=== PATIENT | female | born 1935 | race African-American/Black ===

== ENCOUNTER 2019-07-28 08:05 | Inpatient (IN) | payer MEDICARE ==
[~2019-07-28] VITALS: Ht 160 cm; Wt 56.7 kg
--- NOTE | 2019-07-28 08:25 | ED Abdominal Pain ---
General Stated Complaint: NAUSEA; ABD PAIN Source of Information: Patient Exam Limitations: No Limitations History of Present Illness Date Seen by Provider: Jul 28, 2019 Time Seen by Provider: 08:12 Initial Comments The patient is a pleasant 84-year-old female who presents for evaluation of lower abdominal discomfort which has been worsening over the last week. She reports some intermittent nausea and a small amount of loose stools but denies vomiting, rectal bleeding, back pain, chest pain or shortness of breath, fevers or chills, urinary complaints, dizziness or syncope. She is alert and oriented 4, calm, and appears to be in no distress at this time. She reports a history of a total abdominal hysterectomy with bilateral salpingo-oophorectomy and denies any other abdominal surgeries. She is a history of hypertension and hyperlipidemia. Timing/Duration: 1 Week Severity/Quality: Moderate, Dull Location: Periumbilical, Suprapubic Radiation: No Radiation Activities at Onset: None Associated Symptoms: Nausea/Vomiting (nausea only) Allergies and Home Medications Allergies Coded Allergies: No Known Drug Allergies (Unverified , 07/28/19) Patient Home Medication List Home Medication List Reviewed: Yes Review of Systems Review of Systems Constitutional: no symptoms reported EENTM: No Symptoms Reported Respiratory: No Symptoms Reported Cardiovascular: No Symptoms Reported Gastrointestinal: Abdominal Pain, Diarrhea ("a few loose stools"), Nausea Genitourinary: No Symptoms Reported Musculoskeletal: no symptoms reported Skin: no symptoms reported Psychiatric/Neurological: No Symptoms Reported Endocrine: No Symptoms Reported Hematologic/Lymphatic: No Symptoms Reported All Other Systems Reviewed Negative Unless Noted: Yes Past Humylaf-Jlzirm-Wqnufj Hx Past Med/Social Hx: Reviewed Nursing Past Med/Soc Hx Patient Social History Recent Foreign Travel: No Physical Exam Vital Signs Vital Signs - First Documented 07/28/19 08:10 Temp 36.6 Pulse 78 Resp 16 B/P (MAP) 158/85 (109) Pulse Ox 100 O2 Delivery Room Air Capillary Refill : Height/Weight/BMI Height: '" Weight: lbs. oz. kg; BMI Method: General Appearance: WD/WN, no apparent distress HEENT: PERRL/EOMI, normal ENT inspection Neck: non-tender, full range of motion, supple Respiratory: chest non-tender, lungs clear, normal breath sounds, no respiratory distress Cardiovascular: regular rate, rhythm, no edema, no JVD Gastrointestinal: normal bowel sounds, soft, no organomegaly, no pulsatile mass, tenderness (mild ttp over suprapubic region, no guarding, soft, no distension) Extremities: normal range of motion, normal inspection, no pedal edema, normal capillary refill Back: normal inspection, no CVA tenderness Neurologic/Psychiatric: 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 nml as tested, alert, normal mood/affect, oriented x 3 Skin: normal color, warm/dry Progress/Results/Core Measures Results/Orders Lab Results Laboratory Tests Test 07/28/19 08:22 07/28/19 08:51 Range/Units White Blood Count 4.7 4.3-11.0 10^3/uL Red Blood Count 3.89 L 4.35-5.85 10^6/uL Hemoglobin 10.3 L 11.5-16.0 G/DL Hematocrit 32 L 35-52 % Mean Corpuscular Volume 83 80-99 FL Mean Corpuscular Hemoglobin 26 25-34 PG Mean Corpuscular Hemoglobin Concent 32 32-36 G/DL Red Cell Distribution Width 13.3 10.0-14.5 % Platelet Count 255 130-400 10^3/uL Mean Platelet Volume 9.6 7.4-10.4 FL Neutrophils (%) (Auto) 45 42-75 % Lymphocytes (%) (Auto) 39 12-44 % Monocytes (%) (Auto) 11 0-12 % Eosinophils (%) (Auto) 4 0-10 % Basophils (%) (Auto) 1 0-10 % Neutrophils # (Auto) 2.1 1.8-7.8 X 10^3 Lymphocytes # (Auto) 1.8 1.0-4.0 X 10^3 Monocytes # (Auto) 0.5 0.0-1.0 X 10^3 Eosinophils # (Auto) 0.2 0.0-0.3 10^3/uL Basophils # (Auto) 0.1 0.0-0.1 10^3/uL Sodium Level 142 135-145 MMOL/L Potassium Level 3.6 3.6-5.0 MMOL/L Chloride Level 105 98-107 MMOL/L Carbon Dioxide Level 26 21-32 MMOL/L Anion Gap 11 5-14 MMOL/L Blood Urea Nitrogen 8 7-18 MG/DL Creatinine 0.59 L 0.60-1.30 MG/DL Estimat Glomerular Filtration Rate > 60 BUN/Creatinine Ratio 14 Glucose Level 121 H 70-105 MG/DL Calcium Level 9.0 8.5-10.1 MG/DL Corrected Calcium 9.2 8.5-10.1 MG/DL Total Bilirubin 0.2 0.1-1.0 MG/DL Aspartate Amino Transf (AST/SGOT) 10 5-34 U/L Alanine Aminotransferase (ALT/SGPT) < 5 0-55 U/L Alkaline Phosphatase 69 40-136 U/L Total Protein 6.2 L 6.4-8.2 GM/DL Albumin 3.7 3.2-4.5 GM/DL Amylase Level 81 25-125 U/L Lipase 22 8-78 U/L Urine Color YELLOW Urine Clarity CLEAR Urine pH 7.0 5-9 Urine Specific Central 1.020 1.016-1.022 Urine Protein NEGATIVE NEGATIVE Urine Glucose (UA) NEGATIVE NEGATIVE Urine Ketones NEGATIVE NEGATIVE Urine Nitrite NEGATIVE NEGATIVE Urine Bilirubin NEGATIVE NEGATIVE Urine Urobilinogen 0.2 < = 1.0 MG/DL Urine Leukocyte Esterase TRACE NEGATIVE Urine RBC (Auto) NEGATIVE NEGATIVE Urine RBC NONE /HPF Urine WBC 2-5 /HPF Urine Squamous Epithelial Cells >50 H /HPF Urine Crystals PRESENT H /LPF Urine Calcium Oxalate Crystals FEW H /LPF Urine Bacteria MODERATE H /HPF Urine Casts NONE /LPF Urine Mucus NEGATIVE /LPF Urine Culture Indicated NO My Orders Orders - MARIA ALEJANDRA DUNLAP DO Comprehensive Metabolic Panel (07/28/19 08:17) Lipase (07/28/19 08:17) Amylase (07/28/19 08:17) Ua Culture If Indicated (07/28/19 08:17) Ed Iv/Invasive Line Start (07/28/19 08:17) Cbc With Automated Diff (07/28/19 08:17) Ct Abdomen/Pelvis W (07/28/19 08:17) Iohexol Injection (Omnipaque 350 Mg/Ml 1 (07/28/19 09:15) Received Contrast (Hold Metformin- Contr (07/28/19 09:15) Sodium Chloride Flush (Catheter Flush Sy (07/28/19 09:15) Ns (Ivpb) (Sodium Chloride 0.9% Ivpb Bag (07/28/19 09:15) Ns Iv 1000 Ml (Sodium Chloride 0.9%) (07/28/19 09:45) Morphine Injection (Morphine Injection (07/28/19 09:45) Metronidazole 500mg/100ml Ivpb (Flagyl 5 (07/28/19 10:00) Ciprofloxacin Iv 400mg/200ml (Cipro Iv S (07/28/19 10:00) Medications Given in ED Current Medications Medications Dose Ordered Sig/Isaiah Route Start Time Stop Time Status Last Admin Dose Admin Iohexol 100 ml ONCE ONCE IV 07/28/19 09:15 07/28/19 09:16 UNV 07/28/19 09:14 100 ML Sodium Chloride 10 ml NEEDED PRN IV 07/28/19 09:15 UNV 07/28/19 09:14 10 ML Sodium Chloride 100 ml ONCE ONCE IV 07/28/19 09:15 07/28/19 09:16 UNV 07/28/19 09:14 80 ML Vital Signs/I&O 07/28/19 08:10 Temp 36.6 Pulse 78 Resp 16 B/P (MAP) 158/85 (109) Pulse Ox 100 O2 Delivery Room Air Progress Progress Note : Progress Note @0950 - Discussed the lab and imaging findings with the patient including the possibility of an abscess as this could not be fully ruled out. She has been given antibiotics for the colitis. She is agreeable to admission. Dr. Gandara accepts the admission and requests a general surgery consultation. Dr. Martinez accepts the general surgery consultation and has no further orders at this time. Diagnostic Imaging Diagonstic Imaging: CT Comments [facility] [place], [place] NAME: TIRSO SAMSON [facility] REC#: [id number] PT STATUS: REG ER : 1935 PHYSICIAN: MARIA ALEJANDRA DUNLAP DO ADMIT DATE: 07/28/19/ER FS Signed Date of Exam:07/28/19 CT ABDOMEN/PELVIS W PROCEDURE: CT abdomen and pelvis with contrast. TECHNIQUE: Multiple contiguous axial images were obtained through the abdomen and pelvis after administration of intravenous contrast. Auto Exposure Controls were utilized during the CT exam to meet ALARA standards for radiation dose reduction. INDICATION: Abdominal pain and nausea. COMPARISON: None available. FINDINGS: The visualized lung bases are clear. Multiple hepatic cysts and additional tiny hepatic hypodensities which are too small to completely characterize. The spleen is unremarkable. The adrenal glands are unremarkable. Bilateral renal cysts. Otherwise, the kidneys are unremarkable. Scattered vascular calcifications without aneurysmal dilatation of the abdominal aorta. The urinary bladder is predominately decompressed, therefore not well evaluated. The uterus is not visualized, surgically absent. No abnormal adnexal mass lesion. Mural thickening is identified associated with the majority of the ascending colon with additional hyperenhancement of the hepatic flexure. This is associated with adjacent fat stranding. 2.8 x 1.3 cm hypodense fluid collection is identified abutting the colon at this location, which is also abutting the inferior aspect of the right hepatic lobe. No bowel obstruction or pneumatosis. Lymph nodes about the ascending colon appears slightly increased in number though are not definitively pathologically enlarged. The pancreas is unremarkable. No significant free air or free fluid. Scattered osseous degenerative changes without acute osseous abnormality. IMPRESSION: Significant mural thickening with adjacent fat stranding associated with the ascending colon and hepatic flexure. Findings are favored related to underlying colitis. Neoplasm at this location is not excluded. Recommend correlation with endoscopy at the resolution of this acute event if no recent endoscopy has been performed. Small focal fluid collection immediately adjacent to the hepatic flexure of the colon and liver. As this is immediately adjacent to the abnormal-appearing colon, developing abscess could be considered. Exophytic hepatic cyst or seroma related to prior cholecystectomy would be additional considerations. Hepatic and renal cysts. Lymph nodes adjacent to the ascending colon appear increased in number, which is nonspecific. This may be reactive though infiltrative process cannot be excluded. Dictated by: Dictated on workstation # [id number] Dict: 07/28/19917 Trans: 07/28/19935 [facility] [id number] Interpreted by: NISREEN CRAWFORD MD Electronically signed by: NISREEN CRAWFORD MD 07/28/1936 Departure Communication (Admissions) Time/Spoke to Admitting Phy: 09:50 Dr. Gandara excepts the Med/Surg admission at [facility] at this time. Impression Primary Impression: Colitis Additional Impressions: Abnormal CT of the abdomen Abdominal pain Disposition: ADMITTED INPATIENT Condition: Stable Admissions Decision to Admit Reason: Admit from ER (General) Decision to Admit/Date: Jul 28, 2019 Time/Decision to Admit Time: 09:50 Departure-Patient Inst. Referrals: CAROL AVINA MD (PCP/Family) Primary Care Physician MARIA ALEJANDRA DUNLAP DO Jul 28, 2019 08:25
[2019-07-28 08:34] LABS: WHITE BLOOD COUNT 4.7 10^3/uL (4.3-11.0)
[2019-07-28 08:35] LABS: BASOPHILS # (AUTO) 0.1 10^3/uL (0.0-0.1); BASOPHILS % (AUTO) 1 % (0-10); EOSINOPHILS # (AUTO) 0.2 10^3/uL (0.0-0.3); EOSINOPHILS % (AUTO) 4 % (0-10); HEMATOCRIT 32 % (35-52); HEMOGLOBIN 10.3 G/DL (11.5-16.0); LYMPHOCYTES # (AUTO) 1.8 X 10^3 (1.0-4.0); LYMPHOCYTES % (AUTO) 39 % (12-44); MEAN CORPUSCULAR HEMOGLOBIN 26 PG (25-34); MEAN CORPUSCULAR HGB CONC 32 G/DL (32-36); MEAN CORPUSCULAR VOLUME 83 FL (80-99); MEAN PLATELET VOLUME 9.6 FL (7.4-10.4); MONOCYTES # (AUTO) 0.5 X 10^3 (0.0-1.0); MONOCYTES % (AUTO) 11 % (0-12); NEUTROPHILS # (AUTO) 2.1 X 10^3 (1.8-7.8); NEUTROPHILS % (AUTO) 45 % (42-75); PLATELET COUNT 255 10^3/uL (130-400); RED CELL DISTRIBUTION WIDTH 13.3 % (10.0-14.5)
[2019-07-28 08:53] LABS: SODIUM 142 MMOL/L (135-145)
[2019-07-28 08:54] LABS: ALANINE AMINOTRANSFERASE < 5 U/L (0-55); ALBUMIN 3.7 GM/DL (3.2-4.5); ALKALINE PHOSPHATASE 69 U/L (40-136); AMYLASE 81 U/L (25-125); BILIRUBIN,TOTAL 0.2 MG/DL (0.1-1.0); BUN/CREATININE RATIO 14; CARBON DIOXIDE 26 MMOL/L (21-32); CHLORIDE 105 MMOL/L (98-107); CREATININE SERUM 0.59 MG/DL (0.60-1.30); GFR ESTIMATED > 60; GLUCOSE 121 MG/DL (70-105); LIPASE 22 U/L (8-78); POTASSIUM 3.6 MMOL/L (3.6-5.0); TOTAL PROTEIN 6.2 GM/DL (6.4-8.2)
[2019-07-28 09:12] LABS: BACTERIA,URINE MODERATE /HPF; BILIRUBIN,URINE NEGATIVE (NEGATIVE); CALCIUM OXALATE CRYSTALS,UR FEW /LPF; CLARITY,URINE CLEAR; COLOR,URINE YELLOW; GLUCOSE, URINE (UA) NEGATIVE (NEGATIVE); KETONES,URINE NEGATIVE (NEGATIVE); LEUKOCYTE ESTERASE ,URINE TRACE (NEGATIVE); NITRITE,URINE NEGATIVE (NEGATIVE); PROTEIN,URINE NEGATIVE (NEGATIVE); SQUAMOUS EPITHELIAL CELL,UR >50 /HPF
[2019-07-28] MEDS ORDERED: IOHEXOL 350 MG/ML 100 ML (OMNIPAQUE 350) VIAL IV ONE (09:15)
[2019-07-28] MEDS ORDERED: HOLD METFORMIN - RECEIVED CONTRAST 20 ML VIAL IV SCH (09:15)
[2019-07-28] MEDS ORDERED: CATHETER FLUSH 10 ML SYR IV PRN (09:15)
[2019-07-28] MEDS ORDERED: NS 100 ML (IVPB) BAG IV ONE (09:15)
--- NOTE | 2019-07-28 09:33 | Diagnostic Imaging Report ---
PROCEDURE: CT abdomen and pelvis with contrast. TECHNIQUE: Multiple contiguous axial images were obtained through the abdomen and pelvis after administration of intravenous contrast. Auto Exposure Controls were utilized during the CT exam to meet ALARA standards for radiation dose reduction. INDICATION: Abdominal pain and nausea. COMPARISON: None available. FINDINGS: The visualized lung bases are clear. Multiple hepatic cysts and additional tiny hepatic hypodensities which are too small to completely characterize. The spleen is unremarkable. The adrenal glands are unremarkable. Bilateral renal cysts. Otherwise, the kidneys are unremarkable. Scattered vascular calcifications without aneurysmal dilatation of the abdominal aorta. The urinary bladder is predominately decompressed, therefore not well evaluated. The uterus is not visualized, surgically absent. No abnormal adnexal mass lesion. Mural thickening is identified associated with the majority of the ascending colon with additional hyperenhancement of the hepatic flexure. This is associated with adjacent fat stranding. 2.8 x 1.3 cm hypodense fluid collection is identified abutting the colon at this location, which is also abutting the inferior aspect of the right hepatic lobe. No bowel obstruction or pneumatosis. Lymph nodes about the ascending colon appears slightly increased in number though are not definitively pathologically enlarged. The pancreas is unremarkable. No significant free air or free fluid. Scattered osseous degenerative changes without acute osseous abnormality. IMPRESSION: Significant mural thickening with adjacent fat stranding associated with the ascending colon and hepatic flexure. Findings are favored related to underlying colitis. Neoplasm at this location is not excluded. Recommend correlation with endoscopy at the resolution of this acute event if no recent endoscopy has been performed. Small focal fluid collection immediately adjacent to the hepatic flexure of the colon and liver. As this is immediately adjacent to the abnormal-appearing colon, developing abscess could be considered. Exophytic hepatic cyst or seroma related to prior cholecystectomy would be additional considerations. Hepatic and renal cysts. Lymph nodes adjacent to the ascending colon appear increased in number, which is nonspecific. This may be reactive though infiltrative process cannot be excluded. Dictated by: Dictated on workstation # [id number]
[2019-07-28] MEDS ORDERED: morphine INJ 10 MG/ML 1ML (SYR OR VIAL) IVP STA (09:45)
[2019-07-28] MEDS ORDERED: NS IV 1000 ML 1,000 ML IV SCH (09:45)
[2019-07-28] MEDS ORDERED: CIPROFLOXACIN IV 400MG/200ML 200 ML IV ONE (10:00)
[2019-07-28] MEDS ORDERED: metroNIDAZOLE 500MG/100ML IVPB 100 ML IV ONE (10:00)
[2019-07-28 12:00] VITALS: BP 173/76
--- NOTE | 2019-07-28 12:08 | NUR ---
TIRSO SAMSON admitted to room 420-1, with an admitting diagnosis of cOLITIS AND ABDOMINAL PAIN, on 07/28/19 from ED [facility], accompanied by STAFF.TIRSO SAMSON introduced to surroundings, call light, bed controls, phone, TV, temperature control, lights, meal times, smoking policy, visitor policy, side rail policy, bathrooms and showers. Patient Rights given to patient in the handbook. TIRSO SAMSON verbalizes understanding that [facility] is not responsible for the loss or damage to any personal effects or valuables that are kept in the patients posession during their hospitalization. TIRSO SAMSON AND FAMILY verbalizes understanding of Interdisciplinary Patient Education. Patient and/or family were informed about the Rapid Response Team and its purpose.
[2019-07-28] MEDS ORDERED: LOSA100T57 PO (13:13)
[2019-07-28] MEDS ORDERED: ATEN50TA PO (13:13)
[2019-07-28] MEDS ORDERED: LOVA10TA PO (13:13)
[2019-07-28] MEDS ORDERED: CARB1TAB17 PO (13:13)
[2019-07-28] MEDS ORDERED: metroNIDAZOLE 500MG/100ML IVPB 100 ML ONE (13:29)
--- NOTE | 2019-07-28 13:38 | History & Physical-Hospitalist ---
VIDA TAY,MED STUDENT 07/28/19 1338: History of Present Illness HPI/Chief Complaint CC: Abdominal pain This 84 yo AA female presented to [facility] ED on 07/28/2019 with abdominal pain of one week duration. She states pain began about a week ago and comes and goes. Describes pain as an ache and denies any aggravating/alleviated/inciting factors. She states she "knew something was wrong." On CT Abd/pelvis, a suspicious mass was identified at the hepatic flexure. Pt was transferred to [facility] for surgical work up. Visited pt upon arrival. She is somewhat confused and a questionable historian. Does not know much of her medical history. Asks when her /son will arrive and at that time "she will be ready to answer questions." Thinks her last colonoscopy was a few years ago, does not know results. Pt states only surgical hx is hysterectomy. Source: patient Exam Limitations: no limitations Date Seen 07/28/19 Time Seen by a Provider: 13:28 Attending Physician Ro Kumar Pankaj K MD Referring Physician Date of Admission Jul 28, 2019 at 10:34 Home Medications & Allergies Home Medications Reviewed patient Home Medication Reconciliation performed by pharmacy medication reconciliations audio technician and/or nursing. Patients Allergies have been reviewed. Allergies Allergies Coded Allergies No Known Drug Allergies (Unverified07/28/19) Past Ixrzfju-Fqduey-Pcawdo Hx Past Med/Social Hx: Reviewed Nursing Past Med/Soc Hx Patient Social History Alcohol Use: Denies Use Recreational Drug Use: No 2nd Hand Smoke Exposure: No Recent Foreign Travel: No Contact w/other who traveled: No Recent Hopitalizations: No Recent Infectious Disease Expo: No Seasonal Allergies Seasonal Allergies: No Past Medical History Surgeries: Hysterectomy Cardiac: High Cholesterol, Hypertension Neurological: Parkinson's Disease Hysterectomy History of Blood Disorders: No Family History No Pertinent Family Hx (pt cannot recall any details about parents' health ) Review of Systems Constitutional: No chills, No fever; weakness EENTM: No hearing loss, No ear pain, No eye pain, No vision loss Respiratory: No cough, No dyspnea on exertion, No short of breath Cardiovascular: No chest pain, No edema, No palpitations, No syncope Gastrointestinal: see HPI, abdominal pain (suprapubic ); No constipation, No diarrhea, No dysphagia; loss of appetite; No melena, No nausea, No vomiting Genitourinary: No dysuria, No incontinence Skin: No lesions, No lumps, No rash Psychiatric/Neurological: Anxiety; Denies Headache, Denies Numbness, Denies Tingling Physical Exam Physical Exam Vital Signs Vital Signs - First Documented 07/28/19 08:10 Temp 36.6 Pulse 78 Resp 16 B/P (MAP) 158/85 (109) Pulse Ox 100 O2 Delivery Room Air Capillary Refill : Less Than 3 Seconds Height, Weight, BMI Height: '" Weight: lbs. oz. kg; 22.14 BMI Method: General Appearance: No Apparent Distress, WD/WN Eyes: Bilateral Eye PERRL, Bilateral Eye EOMI Respiratory: Chest Non Tender, Lungs Clear, Normal Breath Sounds, No Accessory Muscle Use, No Respiratory Distress Cardiovascular: Regular Rate, Rhythm, No Edema, No Gallop, No Murmur Gastrointestinal: Soft; No Distended, No Guarding, No Mass, No Rebound; Tenderness (Suprapubic ) Back: No CVA Tenderness, No Vertebral Tenderness Extremity: No Calf Tenderness, No Pedal Edema Neurologic/Psychiatric: Alert, Normal Mood/Affect Skin: Normal Color, Warm/Dry Results Results/Procedures Labs Laboratory Tests 07/28/19 08:22 Patient resulted labs reviewed. Assessment/Plan Admission Diagnosis Colitis Abnormal CT Admission Status: Observation Reason for Inpatient Admission: Pt requires IV antibiotics and surgical consult Assessment and Plan Assessment Colitis Abdominal pain Anemia Mass near hepatic flexure of unknown etiology Hepatic and Renal cysts Unknown last colonoscopy Parkinsons Hypertension Hyperlipidemia Plan Restart home meds IVF maintenance, IV 600 mg Flagil q8h and ciprofloxacin 200mg IV q8h [facility] Consulting general surgery regarding mass. Likely will require colonoscopy for suspicious lesion Will confer with when he arrives to get further med hx KUMARRASTA STONEBayron VENTURA 07/28/19 1938: History of Present Illness HPI/Chief Complaint CC: Abdominal Pain HPI: This is an 80yoWF, Dr. Mauricio pt who presents to the [facility] ER with abdominal pain and had difficulty with a colitis lately. Labs were stable, WC was normal, but CT revealed possible abscess or thickening of the colon. She was placed on Rocephin and Cipro and will be transferred to [facility] and Dr. Martinez will be consulted Past Ykmjcrs-Dxhvuw-Nlhdin Hx Past Med/Social Hx: Reviewed Nursing Past Med/Soc Hx, Reviewed and Corrections made Patient Social History Marrital Status: Employed/Student: retired Smoking Status: Never a Smoker Past Medical History Cardiac: Hypertension Neurological: Dementia, Parkinson's Disease Review of Systems Constitutional: see HPI Gastrointestinal: abdominal pain (LLQ) Physical Exam Physical Exam General Appearance: No Apparent Distress, Anxious, Chronically ill Eyes: Right Eye Normal Inspection, Right Eye PERRL HEENT: PERRL/EOMI, Normal ENT Inspection, Pharynx Normal, Moist Mucous Membranes Neck: Full Range of Motion, Normal Inspection, Non Tender Respiratory: Chest Non Tender, Lungs Clear, Normal Breath Sounds, No Accessory Muscle Use, No Respiratory Distress Cardiovascular: Regular Rate, Rhythm, No Edema, No Gallop, No JVD, No Murmur, Normal Peripheral Pulses Gastrointestinal: Normal Bowel Sounds, No Organomegaly, No Pulsatile Mass, Soft, Tenderness (Suprapubic ) Back: Normal Inspection, No CVA Tenderness, No Vertebral Tenderness Extremity: Normal Capillary Refill, Normal Inspection, Normal Range of Motion, Non Tender, No Calf Tenderness, No Pedal Edema Neurologic/Psychiatric: Alert, Oriented x3, No Motor/Sensory Deficits, Normal Mood/Affect, Disoriented Skin: Normal Color, Warm/Dry Lymphatic: No Adenopathy Assessment/Plan Admission Diagnosis Assessment: Colitis HTN PD Dementia Anxiety Plan: CLD IV abx Pain meds IVF Admission Status: Inpatient Order (span 2 midnights) Reason for Inpatient Admission: Colitis will require 3 days Diagnosis/Problems Diagnosis/Problems (1) Colitis Status: Acute (2) Abnormal CT of the abdomen Status: Acute (3) Abdominal pain Status: Acute Supervisory-Addendum Brief Verification & Attestation Participated in pt care: history, MDM, physical Personally performed: exam, history, MDM, supervision of care Care discussed with: Medical Student Procedures: n/a Results interpretation: Verified all documentation Verification and Attestation of Medical Student E/M Service A medical student performed and documented this service in my presence. I reviewed and verified all information documented by the medical student and made modifications to such information, when appropriate. I personally performed the physical exam and medical decision making. Ro Kumar, Jul 28, 2019,19:38 VIDA TAY,ALFRED STUDENT Jul 28, 2019 13:38 RO KUMAR DO Jul 28, 2019 19:38
[2019-07-28] MEDS ORDERED: ASPI325T32 PO (13:39)
--- NOTE | 2019-07-28 13:39 | Consultation - Surgery ---
[facility] 07/28/19 1339: History of Present Illness History of Present Illness Patient Consulted On(erendira/time) 07/28/19 13:28 Date Seen by Provider: Jul 28, 2019 Time Seen by Provider: 13:20 Reason for Visit: Consultation History of Present Illness Pt is a pleasant highly anxious 84yo women with decreased recall of medical history. Pt reports having suprapubic pain described as an ache for a little over a weak that is intermittent, but has been worsening. She denies anything making it worse or better, and has not taken anything at home to help. She denied any nausea, vomiting, diarrhea, constipation, dysuria, incontinence, or blood in stool. She did report having to sit on the toilet longer to fully empty her bladder, which has been going on for a little while. She is unable to recall her last colonoscopy. She waqs unable to recall what medication she takes and what medial conditions they were for at this time due to anxiety about her finding the hospital. Allergies and Home Medications Allergies Coded Allergies: No Known Drug Allergies (Unverified , 07/28/19) Home Medications Aspirin 325 Mg Tablet.dr, 325 MG PO DAILY, (Reported) Atenolol 50 Mg Tablet, 50 MG PO BID, (Reported) Carbidopa/Levodopa 1 Each Tablet, 2 TAB PO TID, (Reported) LAST FILLED #180 06-02-19 Losartan Potassium 100 Mg Tablet, 100 MG PO DAILY, (Reported) Lovastatin 10 Mg Tablet, 10 MG PO HS, (Reported) Patient Home Medication List Home Medication List Reviewed: Yes Past Lyngaox-Ulegat-Pekgvc Hx Patient Social History Alcohol Use: Denies Use Recreational Drug Use: No 2nd Hand Smoke Exposure: No Recent Foreign Travel: No Contact w/Someone Who Travel: No Recent Infectious Disease Expo: No Recent Hopitalizations: No Seasonal Allergies Seasonal Allergies: No Surgeries History of Surgeries: Yes Surgeries: Hysterectomy Respiratory History of Respiratory Disorde: No Cardiovascular History of Cardiac Disorders: Yes Cardiac Disorders: High Cholesterol, Hypertension Neurological History of Neurological Disord: Yes Neurological Disorders: Parkinson's Disease 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 Genitourinary History of Genitourinary Disor: No Gastrointestinal History of Gastrointestinal Di: No Musculoskeletal History of Musculoskeletal Dis: No Endocrine History of Endocrine Disorders: No HEENT History of HEENT Disorders: No Cancer History of Cancer: No Psychosocial History of Psychiatric Problem: No Integumentary History of Skin or Integumenta: No Blood Transfusions History of Blood Disorders: No Review of Systems-General Constitutional: No chills, No dizziness, No fever EENTM: No hearing loss, No blurred vision, No vision loss, No nose congestion, No throat pain Respiratory: No cough, No dyspnea on exertion, No short of breath Cardiovascular: No chest pain, No palpitations Gastrointestinal: abdominal pain; No constipation, No diarrhea, No nausea, No vomiting Genitourinary: No dysuria, No incontinence Musculoskeletal: No back pain, No muscle weakness Skin: No change in color, No rash Psychiatric/Neurological: Anxiety; Denies Headache, Denies Numbness, Denies Tingling Physical Exam-General Problems Physical Exam Vital Signs Vital Signs - First Documented 07/28/19 08:10 Temp 36.6 Pulse 78 Resp 16 B/P (MAP) 158/85 (109) Pulse Ox 100 O2 Delivery Room Air Capillary Refill : Less Than 3 Seconds General Appearance: WD/WN, no apparent distress HEENT: PERRL/EOMI; No scleral icterus (R), No scleral icterus (L) Neck: full range of motion Respiratory: chest non-tender, lungs clear, normal breath sounds, no respiratory distress, no accessory muscle use Cardiovascular: normal peripheral pulses, regular rate, rhythm, no edema, no gallop, no JVD, no murmur Peripheral Pulses: 2+ Dorsalis Pedis (R), 2+ Left Dors-Pedis (L), 2+ Radial Pulses (R), 2+ Radial Pulses (L) Gastrointestinal: normal bowel sounds, soft, tenderness (Suprapubic, LUQ ) Back: no CVA tenderness, no vertebral tenderness Extremities: non-tender, no pedal edema, no calf tenderness Neurologic/Psychiatric: no motor/sensory deficits, alert Skin: normal color, warm/dry Lymphatic: no adenopathy Data Review Labs Laboratory Tests 07/28/19 08:22: White Blood Count 4.7, Red Blood Count 3.89L, Hemoglobin 10.3L, Hematocrit 32L, Mean Corpuscular Volume 83, Mean Corpuscular Hemoglobin 26, Mean Corpuscular Hemoglobin Concent 32, Red Cell Distribution Width 13.3, Platelet Count 255, Mean Platelet Volume 9.6, Neutrophils (%) (Auto) 45, Lymphocytes (%) (Auto) 39, Monocytes (%) (Auto) 11, Eosinophils (%) (Auto) 4, Basophils (%) (Auto) 1, Neutrophils # (Auto) 2.1, Lymphocytes # (Auto) 1.8, Monocytes # (Auto) 0.5, Eosinophils # (Auto) 0.2, Basophils # (Auto) 0.1, Sodium Level 142, Potassium Le brian 3.6, Chloride Level 105, Carbon Dioxide Level 26, Anion Gap 11, Blood Urea Nitrogen 8, Creatinine 0.59L, Estimat Glomerular Filtration Rate > 60, BUN/Creatinine Ratio 14, Glucose Level 121H, Calcium Level 9.0, Corrected Calcium 9.2, Total Bilirubin 0.2, Aspartate Amino Transf (AST/SGOT) 10, Alanine Aminotransferase (ALT/SGPT) < 5, Alkaline Phosphatase 69, Total Protein 6.2L, Albumin 3.7, Amylase Level 81, Lipase 22 07/28/19 08:51: Urine Color YELLOW, Urine Clarity CLEAR, Urine pH 7.0, Urine Specific Walker 1.020, Urine Protein NEGATIVE, Urine Glucose (UA) NEGATIVE, Urine Ketones NEGATIVE, Urine Nitrite NEGATIVE, Urine Bilirubin NEGATIVE, Urine Urobilinogen 0.2, Urine Leukocyte Esterase TRACE, Urine RBC (Auto) NEGATIVE, Urine RBC NONE, Urine WBC 2-5, Urine Squamous Epithelial Cells >50H, Urine Crystals PRESENTH, Urine Calcium Oxalate Crystals FEWH, Urine Bacteria MODERATEH, Urine Casts NONE, Urine Mucus NEGATIVE, Urine Culture Indicated NO Assessment/Plan Assessment/Plan Assessment/Plan Surgical Consultation Hx Parkinson's Disease Anemia CT showed ascending colitis with a fluid collection at hepatic flexure, needing endoscopic correlation -Will plan outpatient colonoscopy - Continue antibiotics for colitis - CAITLIN MARTINEZ DO 07/28/19 1623: History of Present Illness History of Present Illness History of Present Illness Consult requested by Dr. Gandara for colitis. Patient is an 84 year old female who has been having suprapubic pain for about a week. Pain comes and goes. Aching type pain. She states it is about a 5/10. Nothing has made better or worse. She states she has not has any nausea, vomiting, diarrhea, dysuria or blood in stools. Has had slightly loose stools. Patient had a ct scan showing thickening of the ascending colon with small fluid collection at hepatic flexure which could be early abscess, seroma or cyst. Allergies and Home Medications Allergies Coded Allergies: No Known Drug Allergies (Unverified , 07/28/19) Home Medications Aspirin 325 Mg Tablet.dr, 325 MG PO DAILY, (Reported) Atenolol 50 Mg Tablet, 50 MG PO BID, (Reported) Carbidopa/Levodopa 1 Each Tablet, 2 TAB PO TID, (Reported) LAST FILLED #180 06-02-19 Losartan Potassium 100 Mg Tablet, 100 MG PO DAILY, (Reported) Lovastatin 10 Mg Tablet, 10 MG PO HS, (Reported) Patient Home Medication List Home Medication List Reviewed: Yes Past Ygydjed-Apizre-Hyfptx Hx Patient Social History Alcohol Use: Denies Use Recreational Drug Use: No Smoking Status: Never a Smoker Surgeries Surgeries: Gallbladder, Hysterectomy Reviewed Nursing Assessment Reviewed/Agree w Nursing PMH: Yes Family Medical History Significant Family History: No Pertinent Family Hx Review of Systems-General Constitutional: No chills, No dizziness, No fever EENTM: No hearing loss, No blurred vision, No vision loss, No nose congestion, No throat pain Respiratory: No cough, No dyspnea on exertion Cardiovascular: No chest pain Gastrointestinal: abdominal pain; No constipation, No nausea, No vomiting Genitourinary: No dysuria Musculoskeletal: No back pain Skin: No change in color Psychiatric/Neurological: Anxiety; Denies Headache, Denies Numbness Physical Exam-General Problems Physical Exam General Appearance: WD/WN, no apparent distress HEENT: PERRL/EOMI; No scleral icterus (R), No scleral icterus (L) Neck: full range of motion, supple, normal inspection Respiratory: chest non-tender, no respiratory distress, no accessory muscle use Cardiovascular: normal peripheral pulses, regular rate, rhythm Gastrointestinal: soft, tenderness (Suprapubic, RLQ ) Back: no CVA tenderness, no vertebral tenderness Extremities: non-tender, no pedal edema, no calf tenderness 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 Supervisory-Addendum Brief Verification & Attestation Participated in pt care: history, MDM, physical Personally performed: exam, history, MDM, supervision of care Care discussed with: Medical Student Procedures: n/a Results interpretation: Verified all documentation Verification and Attestation of Medical Student E/M Service A medical student performed and documented this service in my presence. I reviewed and verified all information documented by the medical student and made modifications to such information, when appropriate. I personally performed the physical exam and medical decision making. Caitlin Martinez, Jul 28, 2019,16:23 [facility] Jul 28, 2019 13:39 CAITLIN MARTINEZ DO Jul 28, 2019 16:23
--- NOTE | 2019-07-28 13:40 | NUR ---
SPOKE WITH THE PATIENT ABOUT HER MEDICATIONS. SHE STATES HER KNOWS WHAT SHE TAKES BUT SHE IS NOT SURE OF THE NAMES OF THEM. I CALLED [facility] FOR A LIST OF RECENTLY FILLED MEDICATIONS. HER AZRA ARRIVED AT THIS TIME AND HAS A HAND WRITTEN LIST THAT MATCHES WHAT [facility] FILLED. SHE IS PAST DUE FOR REFILL ON THE CARBIDOPA LEVODOPA, THEY ADMIT SHE MISSES HER MID DAY DOSE FREQUENTLY BUT SHE TAKES THE AM AND PM DOSES REGULARLY. SHE TAKES ASPIRIN 325MG DAILY OTC. [facility] FILLED: 07-14-19 LOVASTATIN 10MG HS #30 06-02-19 ATENOLOL 50MG BID #180 06-02-19 CARBIDOPA LEVODOPA 10-100 2 TID #180 06-02-19 LOSARTAN 100MG DAILY #90
[2019-07-28] MEDS: SINEMET 10/100 (CARBIDOPA/LEVADOPA) TAB PO SCH ×2 (15:24→21:14)
[2019-07-28 15:47] VITALS: BP_SYST 152; BP_SYST 182; BP_DIAS 76; BP_DIAS 82
[2019-07-28 19:22] VITALS: BP 161/78
[2019-07-28] MEDS ORDERED: ONDANSETRON 4 MG (ZOFRAN) ORAL DISSOLVE TAB PO PRN (19:45)
[2019-07-28] MEDS ORDERED: ALPRAZolam 0.25 MG (XANAX) TAB PO PRN (19:45)
[2019-07-28] MEDS ORDERED: HYDROcodone/APAP 5 MG/325 MG (LORTAB) TAB PO PRN (19:45)
[2019-07-28] MEDS ORDERED: amLODIPine 5 MG (NORVASC) TAB PO NR (19:45)
[2019-07-28] MEDS ORDERED: guaiFENesin/CODEINE (ROBITUSSIN AC) 10ML UDC PO PRN (19:45)
[2019-07-28] MEDS ORDERED: ONDANSETRON 4 MG/2 ML (SDV) Z0FRAN IVP PRN (19:45)
[2019-07-28] MEDS ORDERED: diphenhydrAMINE 25 MG TAB (BENADRYL) PO PRN (19:45)
[2019-07-28] MEDS ORDERED: CALCIUM CARBONATE 500 MG (TUMS) TAB.CHEW PO PRN (19:45)
[2019-07-28] MEDS ORDERED: MELATONIN 3 MG TABLET PO PRN (19:45)
[2019-07-28] MEDS ORDERED: ACETAMINOPHEN 500 MG TAB (TYLENOL) PO PRN (19:45)
[2019-07-28] MEDS ORDERED: DOCUSATE SODIUM 100 MG (COLACE) CAP PO PRN (19:45)
[2019-07-28] MEDS ORDERED: ENOXAPARIN 40 MG/0.4 ML (LOVENOX) SYR SC SCH (19:45)
[2019-07-28] MEDS ORDERED: SIMvastatin 10 MG (ZOCOR) TAB PO SCH (21:00)
[2019-07-28] MEDS ORDERED: NON-FORMULARY MEDICATION 1 EA EA (Lovastatin 10 MG) PO SCH (21:00)
[2019-07-28] MEDS: POTASSIUM CHLORIDE INJ 10 MEQ in NS IV 1000 ML 1,000 ML IV SCH (21:02)
[2019-07-28] MEDS: CIPROFLOXACIN IV 400MG/200ML 200 ML IV SCH (21:05)
[2019-07-28] MEDS: ATENOLOL 50 MG (TENORMIN) TAB PO SCH (21:08)
[2019-07-28] MEDS: metroNIDAZOLE 500MG/100ML IVPB 100 ML IV SCH (22:54)
[2019-07-29] VITALS: BP 97/59
[2019-07-29 04:00] VITALS: BP 132/61
[2019-07-29 06:02] LABS: BASOPHILS % (AUTO) 1 % (0-10); EOSINOPHILS # (AUTO) 0.1 10^3/uL (0.0-0.3); EOSINOPHILS % (AUTO) 2 % (0-10); HEMATOCRIT 36 % (35-52); HEMOGLOBIN 11.6 G/DL (11.5-16.0); LYMPHOCYTES # (AUTO) 1.7 X 10^3 (1.0-4.0); LYMPHOCYTES % (AUTO) 38 % (12-44); MEAN CORPUSCULAR HEMOGLOBIN 26 PG (25-34); MEAN CORPUSCULAR HGB CONC 32 G/DL (32-36); MEAN CORPUSCULAR VOLUME 83 FL (80-99); MEAN PLATELET VOLUME 10.4 FL (7.4-10.4); MONOCYTES # (AUTO) 0.5 X 10^3 (0.0-1.0); MONOCYTES % (AUTO) 11 % (0-12); NEUTROPHILS # (AUTO) 2.2 X 10^3 (1.8-7.8); NEUTROPHILS % (AUTO) 49 % (42-75); PLATELET COUNT 220 10^3/uL (130-400); WHITE BLOOD COUNT 4.5 10^3/uL (4.3-11.0)
[2019-07-29 06:34] LABS: ALANINE AMINOTRANSFERASE < 6 U/L (0-55); ALBUMIN 3.8 GM/DL (3.2-4.5); ALKALINE PHOSPHATASE 72 U/L (40-136); BILIRUBIN,TOTAL 0.6 MG/DL (0.1-1.0); BUN/CREATININE RATIO 6; CARBON DIOXIDE 21 MMOL/L (21-32); CHLORIDE 108 MMOL/L (98-107); CREATININE SERUM 0.68 MG/DL (0.60-1.30); GFR ESTIMATED > 60; GLUCOSE 84 MG/DL (70-105); SODIUM 138 MMOL/L (135-145); TOTAL PROTEIN 6.7 GM/DL (6.4-8.2)
[2019-07-29] MEDS: POTASSIUM CHLORIDE INJ 10 MEQ in NS IV 1000 ML 1,000 ML IV SCH (06:55)
[2019-07-29] MEDS: metroNIDAZOLE 500MG/100ML IVPB 100 ML IV SCH (06:55)
--- NOTE | 2019-07-29 07:46 | Progress Note - Surgery ---
[facility] 07/29/19 0746: Subjective Date Seen by a Provider: Jul 29, 2019 Time Seen by a Provider: 07:25 Subjective/Events-last exam Pt reports feeling better today. She is less anxious and more comfortable today with her in the room. She denies the same abdominal pain that had been present yesterday. She does report some discomfort in the lower abdomen that she relates to her pants fitting to tightly in that area, but it is not the same type of pants. Reports eating and drinking normally. Denies any diarrhea, nausea or vomiting, or trouble urinating. Review of Systems General: No Chills, No Fatigue HEENT: No Head Aches, No Visual Changes, No Dysphasia, No Sinus Congestion Pulmonary: No Dyspnea, No Cough Cardiovascular: No: Chest Pain, Palpitations, Edema Gastrointestinal: No: Nausea, Vomiting, Diarrhea Genitourinary: No Dysuria, No Incontinence Musculoskeletal: No: back pain, leg pain Neurological: No: Weakness, Numbness Objective Exam Vital Signs Date Time Temp Pulse Resp B/P (MAP) Pulse Ox O2 Delivery O2 Flow Rate FiO2 07/29/19 04:00 36.4 53 18 132/61 (84) 96 Room Air 07/29/19 00:00 36.3 59 18 97/59 (72) 98 Room Air 07/28/19 20:00 Room Air 07/28/19 19:22 35.8 74 20 161/78 (105) 100 Room Air 07/28/19 17:51 97 Room Air 07/28/19 15:47 36.3 66 20 152/76 (101) 97 Room Air 07/28/19 12:00 36.5 61 16 173/76 100 Room Air 07/28/19 11:25 36.6 59 16 148/66 (109) 98 Room Air 07/28/19 08:10 36.6 78 16 158/85 (109) 100 Room Air I & O 07/29/19 07:00 Intake Total 2710 ml Balance 2710 ml Capillary Refill : Less Than 3 Seconds General Appearance: No Apparent Distress, Chronically ill HEENT: PERRL/EOMI, Normal ENT Inspection, Pharynx Normal, Moist Mucous Membranes Neck: Full Range of Motion, Normal Inspection, Non Tender Respiratory: Chest Non Tender, Lungs Clear, Normal Breath Sounds, No Accessory Muscle Use, No Respiratory Distress Cardiovascular: Regular Rate, Rhythm, No Edema, No Gallop, No JVD, No Murmur, Normal Peripheral Pulses Peripheral Pulses: 2+ Dorsalis Pedis (R), 2+ Left Dors-Pedis (L), 2+ Radial Pulses (R), 2+ Radial Pulses (L) Gastrointestinal: normal bowel sounds, non tender, soft Extremity: Normal Capillary Refill, Normal Inspection, Normal Range of Motion, Non Tender, No Calf Tenderness, No Pedal Edema Neurologic/Psychiatric: Alert, Oriented x3, No Motor/Sensory Deficits, Normal Mood/Affect Skin: Normal Color, Warm/Dry Lymphatic: No Adenopathy Results Lab Laboratory Tests 07/28/19 08:22: White Blood Count 4.7, Red Blood Count 3.89L, Hemoglobin 10.3L, Hematocrit 32L, Mean Corpuscular Volume 83, Mean Corpuscular Hemoglobin 26, Mean Corpuscular Hemoglobin Concent 32, Red Cell Distribution Width 13.3, Platelet Count 255, Mean Platelet Volume 9.6, Neutrophils (%) (Auto) 45, Lymphocytes (%) (Auto) 39, Monocytes (%) (Auto) 11, Eosinophils (%) (Auto) 4, Basophils (%) (Auto) 1, Neutrophils # (Auto) 2.1, Lymphocytes # (Auto) 1.8, Monocytes # (Auto) 0.5, Eosinophils # (Auto) 0.2, Basophils # (Auto) 0.1, Sodium Level 142, Potassium Level 3.6, Chloride Level 105, Carbon Dioxide Level 26, Anion Gap 11, Blood Urea Nitrogen 8, Creatinine 0.59L, Estimat Glomerular Filtration Rate > 60, BUN/Creatinine Ratio 14, Glucose Level 121H, Calcium Level 9.0, Corrected Calcium 9.2, Total Bilirubin 0.2, Aspartate Amino Transf (AST/SGOT) 10, Alanine Aminotransferase (ALT/SGPT) < 5, Alkaline Phosphatase 69, Total Protein 6.2L, Albumin 3.7, Amylase Level 81, Lipase 22 07/28/19 08:51: Urine Color YELLOW, Urine Clarity CLEAR, Urine pH 7.0, Urine Specific [place] 1.020, Urine Protein NEGATIVE, Urine Glucose (UA) NEGATIVE, Urine Ketones NEGATIVE, Urine Nitrite NEGATIVE, Urine Bilirubin NEGATIVE, Urine Urobilinogen 0.2, Urine Leukocyte Esterase TRACE, Urine RBC (Auto) NEGATIVE, Urine RBC NONE, Urine WBC 2-5, Urine Squamous Epithelial Cells >50H, Urine Crystals PRESENTH, Urine Calcium Oxalate Crystals FEWH, Urine Bacteria MODERATEH, Urine Casts NONE, Urine Mucus NEGATIVE, Urine Culture Indicated NO 07/29/19 05:20: White Blood Count 4.5, Red Blood Count 4.39, Hemoglobin 11.6, Hematocrit 36, Mean Corpuscular Volume 83, Mean Corpuscular Hemoglobin 26, Mean Corpuscular Hemoglobin Concent 32, Red Cell Distribution Width 14.0, Platelet Count 220, Mean Platelet Volume 10.4, Neutrophils (%) (Auto) 49, Lymphocytes (%) (Auto) 38, Monocytes (%) (Auto) 11, Eosinophils (%) (Auto) 2, Basophils (%) (Auto) 1, Neutrophils # (Auto) 2.2, Lymphocytes # (Auto) 1.7, Monocytes # (Auto) 0.5, Eosinophils # (Auto) 0.1, Basophils # (Auto) 0.0, Sodium Level 138, Potassium Level 4.0, Chloride Level 108H, Carbon Dioxide Level 21, Anion Gap 9, Blood Urea Nitrogen 4L, Creatinine 0.68, Estimat Glomerular Filtration Rate > 60, BUN/Creatinine Ratio 6, Glucose Level 84, Calcium Level 9.0, Corrected Calcium 9.2, Total Bilirubin 0.6, Aspartate Amino Transf (AST/SGOT) 13, Alanine Aminotransferase (ALT/SGPT) < 6, Alkaline Phosphatase 72, Total Protein 6.7, A lbumin 3.8 Assessment/Plan Assessment/Plan Assessment/Plan ascending colitis anemia- improved today parkinson's patient with ct findings suggestive of ascending colitis and small fluid collection and hepatic flexure Abx of Cipro/Flagyl- consider switch to oral for discharge Outpatient colonoscopy to further evaluate colon about 6 weeks after healing clear liquids currently slowly progress diet as tolerated today no surgical intervention at this time will follow. Clinical Quality Measures DVT/VTE Risk/Contraindication: Risk Factor Score Per Nursin RFS Level Per Nursing on Admit: 2=Moderate CAITLIN MARTINEZ DO 07/29/191938: Subjective Subjective/Events-last exam feeling better today. tolerating clear liquids. no pain. denies n/v fever sweats chills shortness of breath or chest pain. Objective Exam General Appearance: No Apparent Distress, Chronically ill HEENT: PERRL/EOMI, Normal ENT Inspection Neck: Full Range of Motion, Normal Inspection, Non Tender Respiratory: Chest Non Tender, No Accessory Muscle Use Cardiovascular: Regular Rate, Rhythm Gastrointestinal: normal bowel sounds, non tender, soft Extremity: Normal Capillary Refill, Non Tender, No Calf Tenderness Neurologic/Psychiatric: Alert, Oriented x3, No Motor/Sensory Deficits, Normal Mood/Affect Skin: Normal Color, Warm/Dry Lymphatic: No Adenopathy Assessment/Plan Assessment/Plan Assessment/Plan ascending colitis anemia- improved today parkinson's convert to oral abx diet as tolerates outpatient colonoscopy in about 6 weeks. Supervisory-Addendum Brief Verification & Attestation Participated in pt care: history, MDM, physical Personally performed: exam, history, MDM, supervision of care Care discussed with: Medical Student Procedures: n/a Results interpretation: Verified all documentation Verification and Attestation of Medical Student E/M Service A medical student performed and documented this service in my presence. I reviewed and verified all information documented by the medical student and made modifications to such information, when appropriate. I personally performed the physical exam and medical decision making. Caitlin Martinez, Jul 29, 2019,19:39 [facility] Jul 29, 2019 07:46 CAITLIN MARTINEZ DO Jul 29, 2019 19:39
[2019-07-29 08:00] VITALS: BP 176/72
[2019-07-29] MEDS ORDERED: amLODIPine 5 MG (NORVASC) TAB PO SCH (09:00)
[2019-07-29] MEDS ORDERED: LOSARTAN 100 MG (COZAAR) TABLET PO SCH (09:00)
[2019-07-29] MEDS ORDERED: ASPIRIN E.C. 325 MG (ECOTRIN) TABLET PO SCH (09:00)
[2019-07-29] MEDS: CIPROFLOXACIN IV 400MG/200ML 200 ML IV SCH (09:36)
[2019-07-29] MEDS: SINEMET 10/100 (CARBIDOPA/LEVADOPA) TAB PO SCH (09:36)
[2019-07-29] MEDS: ATENOLOL 50 MG (TENORMIN) TAB PO SCH (09:36)
[2019-07-29] MEDS ORDERED: AMLO5TAB9 PO (10:15)
[2019-07-29] MEDS ORDERED: METR500T PO (10:15)
[2019-07-29] MEDS ORDERED: CIPR500T4 PO (10:15)
--- NOTE | 2019-07-29 11:28 | Discharge Summary ---
VIDA TAY,MED STUDENT 07/29/19 1128: Diagnosis/Chief Complaint Date of Admission Jul 28, 2019 at 10:34 Date of Discharge Discharge Date: Jul 29, 2019 Admission Diagnosis Assessment: Colitis HTN PD Dementia Anxiety Plan: CLD IV abx Pain meds IVF Primary Care Madi Mauricio MD Discharge Diagnosis (1) Colitis Status: Acute (2) Abnormal CT of the abdomen Status: Acute (3) Abdominal pain Status: Acute Discharge Summary Discharge Physical Exam Allergies: Coded Allergies: No Known Drug Allergies (Unverified , 07/28/19) Vitals & I&Os Vital Signs Date Time Temp Pulse Resp B/P (MAP) Pulse Ox O2 Delivery O2 Flow Rate FiO2 07/29/19 08:00 36.7 64 20 176/72 (106) 99 Room Air General Appearance: No Apparent Distress, WD/WN Respiratory: Chest Non Tender, Lungs Clear, Normal Breath Sounds, No Accessory Muscle Use, No Respiratory Distress Cardiovascular: Regular Rate, Rhythm, No Edema, No Gallop, No Murmur Gastrointestinal: Non Tender, Soft Extremity: No Calf Tenderness, No Pedal Edema Skin: Normal Color, Warm/Dry Neurologic/Psychiatric: Alert, Oriented x3 Hospital Course Pt presented to [facility] with colicky suprapubic abdominal pain that began a few weeks earlier. Pts abdominal pain was worked up in ER, and CT revealed suspicious mass at the hepatic flexure, as well as hepatic and renal cysts. IV antibiotic therapy and bowel rest was started. Pt was transferred to [facility] med/surg floor for surgical consult. Surgery rec. outpatient colonoscopy in 4-6 weeks after inflammation decreased. Pt was discharged with oral ciprofloxacin and flagil and follow up appointment with primary care physician. Labs (last 24 hrs) Laboratory Tests 07/29/19 05:20: White Blood Count 4.5, Red Blood Count 4.39, Hemoglobin 11.6, Hematocrit 36, Mean Corpuscular Volume 83, Mean Corpuscular Hemoglobin 26, Mean Corpuscular Hemoglobin Concent 32, Red Cell Distribution Width 14.0, Platelet Count 220, Mean Platelet Volume 10.4, Neutrophils (%) (Auto) 49, Lymphocytes (%) (Auto) 38, Monocytes (%) (Auto) 11, Eosinophils (%) (Auto) 2, Basophils (%) (Auto) 1, Neutrophils # (Auto) 2.2, Lymphocytes # (Auto) 1.7, Monocytes # (Auto) 0.5, Eosinophils # (Auto) 0.1, Basophils # (Auto) 0.0, Sodium Level 138, Potassium Level 4.0, Chloride Level 108H, Carbon Dioxide Level 21, Anion Gap 9, Blood Urea Nitrogen 4L, Creatinine 0.68, Estimat Glomerular Filtration Rate > 60, BUN/Cr eatinine Ratio 6, Glucose Level 84, Calcium Level 9.0, Corrected Calcium 9.2, Total Bilirubin 0.6, Aspartate Amino Transf (AST/SGOT) 13, Alanine Aminotransferase (ALT/SGPT) < 6, Alkaline Phosphatase 72, Total Protein 6.7, Albumin 3.8 Patient resulted labs reviewed. Pending Labs Laboratory Tests 07/29/19 05:20: White Blood Count 4.5, Red Blood Count 4.39, Hemoglobin 11.6, Hematocrit 36, Mean Corpuscular Volume 83, Mean Corpuscular Hemoglobin 26, Mean Corpuscular Hemoglobin Concent 32, Red Cell Distribution Width 14.0, Platelet Count 220, Mean Platelet Volume 10.4, Neutrophils (%) (Auto) 49, Lymphocytes (%) (Auto) 38, Monocytes (%) (Auto) 11, Eosinophils (%) (Auto) 2, Basophils (%) (Auto) 1, Neutrophils # (Auto) 2.2, Lymphocytes # (Auto) 1.7, Monocytes # (Auto) 0.5, Eosinophils # (Auto) 0.1, Basophils # (Auto) 0.0, Sodium Level 138, Potassium Level 4.0, Chloride Level 108, Carbon Dioxide Level 21, Anion Gap 9, Blood Urea Nitrogen 4, Creatinine 0.68, Estimat Glomerular Filtration Rate > 60, BUN/Creatinine Ratio 6, Glucose Level 84, Calcium Level 9.0, Corrected Calcium 9.2, Total Bilirubin 0.6, Aspartate Amino Transf (AST/SGOT) 13, Alanine Aminotransferase (ALT/SGPT) < 6, Alkaline Phosphatase 72, Total Protein 6.7, Albumin 3.8 Discharge Home Medications: Active Scripts Active Flagyl (Metronidazole) 500 Mg Tablet 500 Mg PO TID Ciprofloxacin HCl 500 Mg Tablet 500 Mg PO BID Amlodipine Besylate 5 Mg Tablet 5 Mg PO DAILY Reported Aspirin EC (Aspirin) 325 Mg Tablet.dr 325 Mg PO DAILY Lovastatin 10 Mg Tablet 10 Mg PO HS Atenolol 50 Mg Tablet 50 Mg PO BID Carbidopa-Levodopa 10-100 Tab (Carbidopa/Levodopa) 1 Each Tablet 2 Tab PO TID LAST FILLED #180 06-02-19 Losartan Potassium 100 Mg Tablet 100 Mg PO DAILY Instructions to patient/family Please see electronic discharge instructions given to patient. Clinical Quality Measures DVT/VTE Risk/Contraindication: Risk Factor Score Per Nursin RFS Level Per Nursing on Admit: 2=Moderate RO KUMAR DO 07/29/192118: Diagnosis/Chief Complaint Discharge Diagnosis (1) Abdominal pain Status: Acute (2) Abnormal CT of the abdomen Status: Acute (3) Colitis Status: Acute Discharge Summary Discharge Physical Exam Allergies: Coded Allergies: No Known Drug Allergies (Unverified , 07/28/19) General Appearance: No Apparent Distress, WD/WN, Chronically ill Respiratory: Lungs Clear Cardiovascular: Regular Rate, Rhythm Hospital Course Was the Problem List Reviewed?: Yes Hospital course: Pt had an uneventful short hospital course after she was admitted for colitis and abdominal pain, abnormal CT scan prompted consult with Dr. Martinez. Pt was placed on empiric antibiotics of Cipro and Flagyl, Pt did well, abdominal pain resolved. Pt will need a colonoscopy at discharge and her at the bedside will help arrange that due to significant cognitive disability noted. Discussion & Recommendations Discharge Planning: <30 minutes discharge planning Supervisory-Addendum Brief Verification & Attestation Participated in pt care: history, MDM, physical Personally performed: exam, history, MDM, supervision of care Care discussed with: Medical Student Procedures: n/a Results interpretation: Verified all documentation Verification and Attestation of Medical Student E/M Service A medical student performed and documented this service in my presence. I reviewed and verified all information documented by the medical student and made modifications to such information, when appropriate. I personally performed the physical exam and medical decision making. Ro Kumar, Jul 29, 2019,21:19 VIDA TAY,MED STUDENT Jul 29, 2019 11:28 RO KUMAR DO Jul 29, 2019 21:19
[2019-07-29 12:07] VITALS: BP 176/72
== END 2019-07-29 12:07 | disposition home or self-care (01) | DRG 392 ==
LOC: ER FS 08:07 → 4TH 10:34
PROVIDERS: ADMIT Internal Medicine; ATTEND Internal Medicine
DX: K52.9 Noninfective gastroenteritis and colitis, unspecified (principal); G31.83 Neurocognitive disorder with Lewy bodies; F02.80 Dementia in other diseases classified elsewhere, unspecified severity, without behavioral disturbance, psychotic disturbance, mood disturbance, and anxiety; I10 Essential (primary) hypertension; E78.5 Hyperlipidemia, unspecified; K63.9 Disease of intestine, unspecified; K76.89 Other specified diseases of liver; N28.1 Cyst of kidney, acquired; D64.9 Anemia, unspecified; Z90.710 Acquired absence of both cervix and uterus
CPT/HCPCS: 36415; 74177; 80053; 81000; 82150; 83690; 85025

== ENCOUNTER 2020-11-10 11:45 | Inpatient (IN) | payer MEDICARE ==
[~2020-11-10] VITALS: Ht 160 cm; Wt 64.4 kg
[~2020-11-10 11:45] MED LIST: AMLO-250 PO; ASPI325T32 PO; ATEN50TA PO; CARB1TAB30 PO; CIPR500T5 PO; LOSA100T57 PO; LOVA10TA PO; METR500T PO
[2020-11-10] MEDS ORDERED: fentaNYL INJ 100 MCG/2 ML AMP IVP STA (11:58)
[2020-11-10] MEDS ORDERED: NS IV 1000 ML 1,000 ML IV STA ×2 (11:58→15:38)
[2020-11-10] MEDS ORDERED: ONDANSETRON 4 MG/2 ML (SDV) Z0FRAN IVP STA (11:58)
[2020-11-10 12:10] LABS: EOSINOPHILS % (AUTO) 2 % (0-10); HEMATOCRIT 38 % (35-52); HEMOGLOBIN 11.5 G/DL (11.5-16.0); LYMPHOCYTES % (AUTO) 35 % (12-44); MEAN CORPUSCULAR HEMOGLOBIN 26 PG (25-34); MEAN CORPUSCULAR HGB CONC 31 G/DL (32-36); MEAN CORPUSCULAR VOLUME 85 FL (80-99); MEAN PLATELET VOLUME 9.7 FL (7.4-10.4); MONOCYTES % (AUTO) 10 % (0-12); NEUTROPHILS % (AUTO) 52 % (42-75); PLATELET COUNT 250 10^3/uL (130-400); WHITE BLOOD COUNT 6.1 10^3/uL (4.3-11.0)
[2020-11-10 12:11] LABS: BASOPHILS # (AUTO) 0.1 10^3/uL (0.0-0.1); BASOPHILS % (AUTO) 1 % (0-10); EOSINOPHILS # (AUTO) 0.1 10^3/uL (0.0-0.3); LYMPHOCYTES # (AUTO) 2.2 X 10^3 (1.0-4.0); MONOCYTES # (AUTO) 0.6 X 10^3 (0.0-1.0); NEUTROPHILS # (AUTO) 3.2 X 10^3 (1.8-7.8)
--- NOTE | 2020-11-10 12:26 | ED GI ---
General Chief Complaint: Abdominal/GI Problems Stated Complaint: ABD PAIN Nursing Triage Note: Pt to ED room 4 via [facility]. Pt c/o lower abd pain and nausea. Pt reported to EMS she was previously told she needed an abd surgery but pt did not have procedure done and does not remember what procedure it was. Pt is poor historian. Sepsis Screen: No Definite Risk Source of Information: Patient, EMS, Old Records History of Present Illness Date Seen by Provider: November 10, 2020 Time Seen by Provider: 11:54 Initial Comments 85-year-old female presenting with complaints of mid abdominal pain and nausea. She denies having any actual vomiting. She states this is been worse since yesterday. She had similar symptoms in July 2019 when she was admitted for colitis. She was told that she needed to be taking iron supplements and needed to have a colonoscopy after discharge. She has not followed up to have a colonoscopy. She does take the iron supplements but not every day. She denies any pain with urination. She has no pain with having a bowel movement but has noticed they are black in color. She has not seen any bright red blood in her stools. Timing/Duration: 1-2 Days Severity/Quality: Moderate, Cramping, Sharp Location: Epigastric, Periumbilical Radiation: No Radiation Activities at Onset: None Associated Symptoms: No Back Pain, No Chest Pain, No Diaphoresis, No Fever/Chills, No Fatigue, No Headache, No Heartburn; Nausea/Vomiting (nausea but no vomiting); No Rash, No Shortness of Air, No Swelling/Mass in Abdomen, No Syncope; Weakness (generalized) Allergies and Home Medications Allergies Coded Allergies: No Known Drug Allergies (Unverified , 07/28/19) Home Medications Amlodipine Besylate 5 Mg Tablet, 5 MG PO DAILY Prescribed by: SHAWNA KUMAR on 07/29/19 1015 Aspirin 325 Mg Tablet.dr, 325 MG PO DAILY, (Reported) Atenolol 50 Mg Tablet, 50 MG PO BID, (Reported) Carbidopa/Levodopa 1 Each Tablet, 2 TAB PO TID, (Reported) LAST FILLED #180 06-02-19 Ciprofloxacin HCl 500 Mg Tablet, 500 MG PO BID Prescribed by: SHAWNA KUMAR on 07/29/19 1015 Losartan Potassium 100 Mg Tablet, 100 MG PO DAILY, (Reported) Lovastatin 10 Mg Tablet, 10 MG PO HS, (Reported) Metronidazole 500 Mg Tablet, 500 MG PO TID Prescribed by: SHAWNA KUMAR on 07/29/19 1015 Patient Home Medication List Home Medication List Reviewed: Yes Review of Systems Review of Systems Constitutional: No chills, No diaphoresis, No fever; malaise, weakness (general) EENTM: No Symptoms Reported Respiratory: No Symptoms Reported Cardiovascular: No Symptoms Reported Gastrointestinal: See HPI Genitourinary: Denies Frequency, Denies Hematuria, Denies Pain Musculoskeletal: no symptoms reported Skin: No rash Psychiatric/Neurological: Denies Headache, Denies Numbness Past Lvmlrfb-Mzixxx-Yxohzy Hx Past Med/Social Hx: Reviewed Nursing Past Med/Soc Hx Patient Social History Alcohol Use: Denies Use Smoking Status: Never a Smoker 2nd Hand Smoke Exposure: No Recent Infectious Disease Expo: No Recent Hopitalizations: No Seasonal Allergies Seasonal Allergies: No Past Medical History Surgeries: Yes Gallbladder, Hysterectomy Respiratory: No Cardiac: Yes Hypertension 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 oz. 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, alert, oriented x 3 Skin: normal color, warm/dry Images 1 - periumcilical and epigastric abdominal pain with palpation Focused Exam Lactate Level 5/13/21 12:12: Lactic Acid Level 1.13 Lactic Acid Level Laboratory Tests Test 11/10/20 12:12 Lactic Acid Level 1.13 MMOL/L (0.50-2.00) Progress/Results/Core Measures Results/Orders Lab Results Laboratory Tests Test 11/10/20 12:02 11/10/20 12:12 11/10/20 13:15 Range/Units White Blood Count 6.1 4.3-11.0 10^3/uL Red Blood Count 4.41 4.35-5.85 10^6/uL Hemoglobin 11.5 11.5-16.0 G/DL Hematocrit 38 35-52 % Mean Corpuscular Volume 85 80-99 FL Mean Corpuscular Hemoglobin 26 25-34 PG Mean Corpuscular Hemoglobin Concent 31 L 32-36 G/DL Red Cell Distribution Width 18.6 H 10.0-14.5 % Platelet Count 250 130-400 10^3/uL Mean Platelet Volume 9.7 7.4-10.4 FL Immature Granulocyte % (Auto) 0 % Neutrophils (%) (Auto) 52 42-75 % Lymphocytes (%) (Auto) 35 12-44 % Monocytes (%) (Auto) 10 0-12 % Eosinophils (%) (Auto) 2 0-10 % Basophils (%) (Auto) 1 0-10 % Neutrophils # (Auto) 3.2 1.8-7.8 X 10^3 Lymphocytes # (Auto) 2.2 1.0-4.0 X 10^3 Monocytes # (Auto) 0.6 0.0-1.0 X 10^3 Eosinophils # (Auto) 0.1 0.0-0.3 10^3/uL Basophils # (Auto) 0.1 0.0-0.1 10^3/uL Immature Granulocyte # (Auto) 0.0 0.0-0.1 10^3/uL Percent Immature Platelet Fraction 1.8 0.0-7.6 % Sodium Level 136 135-145 MMOL/L Potassium Level 5.8 H 3.6-5.0 MMOL/L Chloride Level 102 98-107 MMOL/L Carbon Dioxide Level 23 21-32 MMOL/L Anion Gap 11 5-14 MMOL/L Blood Urea Nitrogen 9 7-18 MG/DL Creatinine 0.57 L 0.60-1.30 MG/DL Estimat Glomerular Filtration Rate > 60 BUN/Creatinine Ratio 16 Glucose Level 101 70-105 MG/DL Calcium Level 9.2 8.5-10.1 MG/DL Corrected Calcium 9.4 8.5-10.1 MG/DL Total Bilirubin 0.4 0.1-1.0 MG/DL Aspartate Amino Transf (AST/SGOT) 52 H 5-34 U/L Alanine Aminotransferase (ALT/SGPT) 7 0-55 U/L Alkaline Phosphatase 63 40-136 U/L Total Protein 6.7 6.4-8.2 GM/DL Albumin 3.8 3.2-4.5 GM/DL Lipase 19 8-78 U/L Lactic Acid Level 1.13 0.50-2.00 MMOL/L Urine Color YELLOW Urine Clarity CLEAR Urine pH 7.0 5-9 Urine Specific [place] 1.020 1.016-1.022 Urine Protein NEGATIVE NEGATIVE Urine Glucose (UA) NEGATIVE NEGATIVE Urine Ketones TRACE H NEGATIVE Urine Nitrite NEGATIVE NEGATIVE Urine Bilirubin NEGATIVE NEGATIVE Urine Urobilinogen 0.2 < = 1.0 MG/DL Urine Leukocyte Esterase NEGATIVE NEGATIVE Urine RBC (Auto) TRACE H NEGATIVE Urine RBC 0-2 /HPF Urine WBC RARE /HPF Urine Squamous Epithelial Cells 0-2 /HPF Urine Crystals NONE /LPF Urine Bacteria NEGATIVE /HPF Urine Casts NONE /LPF Urine Mucus NEGATIVE /LPF Urine Culture Indicated NO My Orders Orders - LIZZY STARK MD Comprehensive Metabolic Panel (11/10/20 11:58) Lipase (11/10/20 11:58) Ua Culture If Indicated (11/10/20 11:58) Ed Iv/Invasive Line Start (11/10/20 11:58) Cbc With Automated Diff (11/10/20 11:58) Ct Abdomen/Pelvis W (11/10/20 11:58) Ondansetron Injection (Zofran Injectio (11/10/20 11:58) Ns Iv 1000 Ml (Sodium Chloride 0.9%) (11/10/20 11:58) Fentanyl Inj (Sublimaze Injection) (11/10/20 11:58) Lactic Acid Analyzer (11/10/20 11:58) Iohexol Injection (Omnipaque 350 Mg/Ml 1 (11/10/20 12:45) Received Contrast (Hold Metformin- Contr (11/10/20 12:45) Sodium Chloride Flush (Catheter Flush Sy (11/10/20 12:45) Ns (Ivpb) (Sodium Chloride 0.9% Ivpb Bag (11/10/20 12:45) Fecal Occult Bedside (11/10/20 13:54) Pantoprazole Injection (Protonix Injecti (11/10/20 14:00) Ciprofloxacin Iv 400mg/200ml (Cipro Iv S (11/10/20 14:00) Metronidazole 500mg/100ml Ivpb (Flagyl 5 (11/10/20 14:00) Metoclopramide Injection (Reglan Injecti (11/10/20 15:37) Ns Iv 1000 Ml (Sodium Chloride 0.9%) (11/10/20 15:38) Medications Given in ED Current Medications Medications Dose Ordered Sig/Isaiah Route Start Time Stop Time Status Last Admin Dose Admin Ciprofloxacin/ Dextrose 200 ml @ 200 mls/hr ONCE ONCE IV 11/10/20 14:00 11/10/20 14:59 DC 11/10/20 15:18 200 MLS/HR Iohexol 100 ml ONCE ONCE IV 11/10/20 12:45 11/10/20 12:46 DC 11/10/20 12:57 100 ML Metronidazole 100 ml @ 100 mls/hr ONCE ONCE IV 11/10/20 14:00 11/10/20 14:59 DC 11/10/20 14:11 100 MLS/HR Pantoprazole 40 mg ONCE ONCE IV 11/10/20 14:00 11/10/20 14:01 DC 11/10/20 14:11 40 MG Sodium Chloride 10 ml NEEDED PRN IV 11/10/20 12:45 11/10/20 12:57 10 ML Sodium Chloride 100 ml ONCE ONCE IV 11/10/20 12:45 11/10/20 12:46 DC 11/10/20 12:57 100 ML Vital Signs/I&O 11/10/20 11:48 Temp 36.4 Pulse 67 Resp 16 B/P (MAP) 171/106 (127) Pulse Ox 100 O2 Delivery Room Air Blood Pressure Mean: 127 Progress Progress Note #1: Progress Note Check labs as well as order CT scan to evaluate for possible recurrent colitis. Give IV fluids to help with hydration, Zofran for nausea, fentanyl for pain. Differential diagnosis includes colitis, diverticulitis, gastritis, bowel obstruction, urinary tract infection, ischemic bowel with sepsis, gastroenteritis Progress Note #2: Progress Note Labs did not demonstrate any elevated white blood cell count. Her hemoglobin is stable at 11.5. Her chemistry panel shows an elevated potassium of 5.8 but BUN and creatinine are normal. Her lactic acid is nonelevated. Her urinalysis does not show infection. She does have some ketones in her urine. The CT scan of her abdomen pelvis shows recurrent colitis in the ascending colon and hepatic flexure similar to July 2019. As she has colitis in the same area the radiologist did include in the differential that she could have a mass or cancer in that area. Confirmed with patient and her that she has not had a colonoscopy after discharge. She has a colonoscopy approximately 7 years ago that did not show any acute significant abnormality according to the family. Her Hemoccult bedside test was positive so she does have a GI bleed with melena. We will start her on Protonix in addition to antibiotics to treat for colitis. Discussed with Dr. Floyd the on-call provider for [facility]. Admit as above. Eventually she may need surgery to be consulted for EGD and colonoscopy but while she has acute inflammation it would be more of a risk for perforation to perform those procedures now. Diagnostic Imaging Diagonstic Imaging: CT Plain Films/CT/US/NM/MRI: abdomen, pelvis Comments NAME: TIRSO SAMSON [facility] REC#: [id number] PT STATUS: REG ER : 1935 PHYSICIAN: LIZZY STARK MD ADMIT DATE: 11/10/20/ER FS Draft Date of Exam:11/10/20 CT ABDOMEN/PELVIS W EXAMINATION: CT abdomen and pelvis with intravenous contrast. TECHNIQUE: Multiple contiguous axial images were obtained through the abdomen and pelvis after the uneventful administration of intravenous contrast. All CT scans use one or more of the following dose optimizing techniques: automated exposure control, MA and/or KvP adjustment based on patient size and exam type or iterative reconstruction. HISTORY: Abdominal pain. COMPARISON: CT abdomen/pelvis 07/28/2019. FINDINGS: Lung bases: Bibasilar dependent atelectasis. Solid organs: Multiple hepatic cysts are unchanged. The gallbladder is surgically absent. There is no biliary ductal dilation. Pancreas is normal. Spleen is normal. Adrenal glands are normal. There are bilateral renal cysts which require no followup. The kidneys are otherwise unremarkable without hydronephrosis. Bowel: The stomach and small bowel are normal without obstruction. There is wall thickening and inflammatory stranding near the hepatic flexure. Scattered colonic diverticulosis. No findings of acute appendicitis. Peritoneum: There is no intraperitoneal free fluid or free air. No suspicious lymphadenopathy. Vasculature: Calcification of the aorta without aneurysm. Musculoskeletal: Degenerative changes of the spine without suspicious osseous lesion or compression fracture. Pelvis: The uterus is surgically absent. No adnexal mass. There is a filling defect within the inferior urinary bladder seen on delayed images (series 10 image 64). IMPRESSION: 1. Wall thickening and inflammation of the hepatic flexure of the colon. Although this could represent an infectious or inflammatory colitis, given similar findings on the CT of 07/20/2019, underlying neoplasm is of concern. Recommend correlation with colonoscopy to exclude a neoplastic process if this has not already been performed. 2. Colonic diverticulosis without findings of diverticulitis. Dictated on workstation # [id number] Dict: 11/10/20 1310 Trans: 11/10/20 1319 [id number] Interpreted by: MARIA ALEJANDRA BLUE DO Electronically signed by: Departure Communication (Admissions) Time/Spoke to Admitting Phy: 14:00 d/w Dr. Floyd web applications programmer for [facility] Dr. Avina. Will admit for IVF hydration, IV antibiotics for colitis, Protonix for GI bleed with melena. Repeat Basic Metabolic Profile at 1800 since had hyperkalemia of 5.8 on initial labs. Impression Primary Impression: Colitis Additional Impressions: GI bleeding Qualified Codes: K92.1 - Melena Nausea alone Hyperkalemia Disposition: 30 STILL A PATIENT Condition: Stable Admissions Decision to Admit Reason: Admit from ER (General) Decision to Admit/Date: November 10, 2020 Time/Decision to Admit Time: 14:00 Departure-Patient Inst. Referrals: CAROL AVINA MD (PCP/Family) Primary Care Physician LIZZY STARK MD November 10, 2020 12:26
[2020-11-10 12:31] LABS: BUN/CREATININE RATIO 16; CARBON DIOXIDE 23 MMOL/L (21-32); CHLORIDE 102 MMOL/L (98-107); CREATININE SERUM 0.57 MG/DL (0.60-1.30); GFR ESTIMATED > 60; GLUCOSE 101 MG/DL (70-105); POTASSIUM 5.8 MMOL/L (3.6-5.0); SODIUM 136 MMOL/L (135-145)
[2020-11-10 12:32] LABS: ALANINE AMINOTRANSFERASE 7 U/L (0-55); ALBUMIN 3.8 GM/DL (3.2-4.5); ALKALINE PHOSPHATASE 63 U/L (40-136); BILIRUBIN,TOTAL 0.4 MG/DL (0.1-1.0); CALCIUM 9.2 MG/DL (8.5-10.1); LIPASE 19 U/L (8-78); TOTAL PROTEIN 6.7 GM/DL (6.4-8.2)
[2020-11-10] MEDS ORDERED: HOLD METFORMIN - RECEIVED CONTRAST 20 ML VIAL IV SCH (12:45)
[2020-11-10] MEDS ORDERED: IOHEXOL 350 MG/ML 100 ML (OMNIPAQUE 350) VIAL IV ONE (12:45)
[2020-11-10] MEDS ORDERED: CATHETER FLUSH 10 ML SYR IV PRN ×2 (12:45→17:00)
[2020-11-10] MEDS ORDERED: NS 100 ML (IVPB) BAG IV ONE (12:45)
--- NOTE | 2020-11-10 13:20 | Diagnostic Imaging Report ---
EXAMINATION: CT abdomen and pelvis with intravenous contrast. TECHNIQUE: Multiple contiguous axial images were obtained through the abdomen and pelvis after the uneventful administration of intravenous contrast. All CT scans use one or more of the following dose optimizing techniques: automated exposure control, MA and/or KvP adjustment based on patient size and exam type or iterative reconstruction. HISTORY: Abdominal pain. COMPARISON: CT abdomen/pelvis 07/28/2019. FINDINGS: Lung bases: Bibasilar dependent atelectasis. Solid organs: Multiple hepatic cysts are unchanged. The gallbladder is surgically absent. There is no biliary ductal dilation. Pancreas is normal. Spleen is normal. Adrenal glands are normal. There are bilateral renal cysts which require no followup. The kidneys are otherwise unremarkable without hydronephrosis. Bowel: The stomach and small bowel are normal without obstruction. There is wall thickening and inflammatory stranding near the hepatic flexure. Scattered colonic diverticulosis. No findings of acute appendicitis. Peritoneum: There is no intraperitoneal free fluid or free air. No suspicious lymphadenopathy. Vasculature: Calcification of the aorta without aneurysm. Musculoskeletal: Degenerative changes of the spine without suspicious osseous lesion or compression fracture. Pelvis: The uterus is surgically absent. No adnexal mass. There is a filling defect within the inferior urinary bladder seen on delayed images (series 10 image 64). IMPRESSION: 1. Wall thickening and inflammation of the hepatic flexure of the colon. Although this could represent an infectious or inflammatory colitis, given similar findings on the CT of 07/20/2019, underlying neoplasm is of concern. Recommend correlation with colonoscopy to exclude a neoplastic process if this has not already been performed. 2. Colonic diverticulosis without findings of diverticulitis. Dictated by: Dictated on workstation # [id number]
[2020-11-10 13:27] LABS: BILIRUBIN,URINE NEGATIVE (NEGATIVE); CLARITY,URINE CLEAR; COLOR,URINE YELLOW; GLUCOSE, URINE (UA) NEGATIVE (NEGATIVE); KETONES,URINE TRACE (NEGATIVE); LEUKOCYTE ESTERASE ,URINE NEGATIVE (NEGATIVE); NITRITE,URINE NEGATIVE (NEGATIVE); PROTEIN,URINE NEGATIVE (NEGATIVE); RBC,URINE 0-2 /HPF
[2020-11-10 13:28] LABS: BACTERIA,URINE NEGATIVE /HPF; SQUAMOUS EPITHELIAL CELL,UR 0-2 /HPF; WBC,URINE RARE /HPF
[2020-11-10] MEDS ORDERED: PANTOPRAZOLE 40 MG (PROTONIX) VIAL IV ONE (14:00)
[2020-11-10] MEDS ORDERED: CIPROFLOXACIN IV 400MG/200ML 200 ML IV ONE (14:00)
[2020-11-10] MEDS ORDERED: metroNIDAZOLE 500MG/100ML IVPB 100 ML IV ONE (14:00)
[2020-11-10] MEDS ORDERED: METOCLOPRAMIDE INJ 10 MG/2 ML (REGLAN) IVP STA (15:37)
[2020-11-10] MEDS: NS IV 1000 ML 1,000 ML IV SCH (17:05)
[2020-11-10] MEDS: METOCLOPRAMIDE INJ 10 MG/2 ML (REGLAN) IV PRN (17:25)
[2020-11-10 18:18] LABS: CHLORIDE 106 MMOL/L (98-107); POTASSIUM 3.3 MMOL/L (3.6-5.0); SODIUM 140 MMOL/L (135-145)
[2020-11-10 18:19] LABS: CALCIUM 8.4 MG/DL (8.5-10.1); GLUCOSE 110 MG/DL (70-105)
[2020-11-10 18:21] LABS: CARBON DIOXIDE 21 MMOL/L (21-32)
[2020-11-10 18:23] LABS: CREATININE SERUM 0.71 MG/DL (0.60-1.30); GFR ESTIMATED > 60
[2020-11-10 18:24] LABS: BUN/CREATININE RATIO 8
[2020-11-10 19:48] VITALS: BP 123/85
[2020-11-10] MEDS: metroNIDAZOLE 500MG/100ML IVPB 100 ML IV SCH (20:10)
[2020-11-10] MEDS: PANTOPRAZOLE 40 MG (PROTONIX) VIAL IV SCH (20:10)
[2020-11-10] MEDS: CIPROFLOXACIN 400 MG/D5W 200 ML (PRE-MIX) IV SCH (23:21)
[2020-11-10 23:37] VITALS: BP 160/66
[2020-11-11 04:03] VITALS: BP 170/73
[2020-11-11 05:52] LABS: BASOPHILS # (AUTO) 0.1 10^3/uL (0.0-0.1); BASOPHILS % (AUTO) 1 % (0-10); EOSINOPHILS # (AUTO) 0.1 10^3/uL (0.0-0.3); EOSINOPHILS % (AUTO) 2 % (0-10); HEMATOCRIT 34 % (35-52); HEMOGLOBIN 10.9 g/dL (11.5-16.0); LYMPHOCYTES # (AUTO) 1.4 10^3/uL (1.0-4.0); LYMPHOCYTES % (AUTO) 26 % (12-44); MEAN CORPUSCULAR HEMOGLOBIN 26 pg (25-34); MEAN CORPUSCULAR HGB CONC 32 g/dL (32-36); MEAN CORPUSCULAR VOLUME 82 fL (80-99); MEAN PLATELET VOLUME 9.9 fL (9.0-12.2); MONOCYTES # (AUTO) 0.7 10^3/uL (0.0-1.0); MONOCYTES % (AUTO) 14 % (0-12); NEUTROPHILS % (AUTO) 57 % (42-75); PLATELET COUNT 231 10^3/uL (130-400); WHITE BLOOD COUNT 5.3 10^3/uL (4.3-11.0)
[2020-11-11] MEDS: metroNIDAZOLE 500MG/100ML IVPB 100 ML IV SCH ×3 (05:59→21:32)
[2020-11-11 06:01] LABS: ALBUMIN 3.5 GM/DL (3.2-4.5)
[2020-11-11 06:02] LABS: CHLORIDE 108 MMOL/L (98-107); POTASSIUM 3.2 MMOL/L (3.6-5.0); SODIUM 142 MMOL/L (135-145)
[2020-11-11 06:03] LABS: CALCIUM 8.9 MG/DL (8.5-10.1)
[2020-11-11 06:04] LABS: GLUCOSE 87 MG/DL (70-105); TOTAL PROTEIN 6.2 GM/DL (6.4-8.2)
[2020-11-11 06:05] LABS: CARBON DIOXIDE 24 MMOL/L (21-32)
[2020-11-11 06:06] LABS: BILIRUBIN,TOTAL 0.5 MG/DL (0.1-1.0)
[2020-11-11 06:07] LABS: ALKALINE PHOSPHATASE 59 U/L (40-136)
[2020-11-11 06:08] LABS: GFR ESTIMATED > 60
[2020-11-11 06:09] LABS: BUN/CREATININE RATIO 6
[2020-11-11 06:10] LABS: ALANINE AMINOTRANSFERASE 9 U/L (0-55)
[2020-11-11] MEDS: NS IV 1000 ML 1,000 ML IV SCH ×3 (06:28→23:27)
[2020-11-11 07:35] VITALS: BP 144/71
[2020-11-11] MEDS: PANTOPRAZOLE 40 MG (PROTONIX) VIAL IV SCH ×2 (08:16→21:32)
[2020-11-11] MEDS: METOCLOPRAMIDE INJ 10 MG/2 ML (REGLAN) IV PRN (08:18)
[2020-11-11] MEDS ORDERED: PROMETHAZINE INJ 25 MG/ML (PHENERGAN) AMP IVP PRN (11:30)
[2020-11-11] MEDS: CIPROFLOXACIN 400 MG/D5W 200 ML (PRE-MIX) IV SCH ×2 (12:20→23:22)
[2020-11-11] MEDS: ONDANSETRON 4 MG/2 ML (SDV) Z0FRAN IVP PRN (12:20)
--- NOTE | 2020-11-11 12:27 | History & Physical ---
HPI History of Present Illness: 63 yo F that states that she started having worsening abdominal pain about 5 days ago. States that she had a similar episode earlier this year and was suppose to get a scope outpatient but she has not had that done. She was also having dark stools but denies any blood in her stool. She states that her appetite has been low but states that she has never had a big appetite her whole life. She has not noticed and change in her stool just darker in color. Denies any previous scopes. She is not sure about any weight loss as she does not weight herself but states that her clothes may fit looser then normal. Source: patient Date seen by provider: November 11, 2020 Time Seen by Provider: 10:05 Attending Physician Loli Floyd MD PCP Carol Avina MD Consult Date of Admission November 10, 2020 at 16:40 Home Medications Home Medications Reviewed patient Home Medication Reconciliation performed by pharmacy medication reconciliations digital technician and/or nursing. Patients Allergies have been reviewed. Allergies Coded Allergies: No Known Drug Allergies (Unverified , 07/28/19) [id number]-[id number] Hx Patient Social History Smoking Status: Never a Smoker 2nd Hand Smoke Exposure: No Recent Hopitalizations: No Past Medical History HTN HLD Family Medical History Significant Family History: No Pertinent Family Hx Review of Systems ([facility]) Constitutional: malaise, weakness EENTM: no symptoms reported; No mouth pain, No nose congestion, No nose pain Respiratory: no symptoms reported; No cough, No dyspnea on exertion, No short of breath Cardiovascular: no symptoms reported; No chest pain, No edema, No palpitations Gastrointestinal: No constipation, No diarrhea; loss of appetite, melena, nausea; No vomiting Genitourinary: no symptoms reported; No dysuria, No frequency, No hematuria : No Musculoskeletal: no symptoms reported Skin: no symptoms reported Psychiatric/Neurological: No Symptoms Reported Reviewed Test Results Reviewed Test Results Lab Laboratory Tests Test 11/10/20 18:00 11/11/20 05:08 Range/Units Sodium Level 140 142 135-145 MMOL/L Potassium Level 3.3 L 3.2 L 3.6-5.0 MMOL/L Chloride Level 106 108 H 98-107 MMOL/L Carbon Dioxide Level 21 24 21-32 MMOL/L Anion Gap 13 10 5-14 MMOL/L Blood Urea Nitrogen 6 L 4 L 7-18 MG/DL Creatinine 0.71 0.70 0.60-1.30 MG/DL Estimat Glomerular Filtration Rate > 60 > 60 BUN/Creatinine Ratio 8 6 Glucose Level 110 H 87 70-105 MG/DL Calcium Level 8.4 L 8.9 8.5-10.1 MG/DL White Blood Count 5.3 4.3-11.0 10^3/uL Red Blood Count 4.18 3.80-5.11 10^6/uL Hemoglobin 10.9 L 11.5-16.0 g/dL Hematocrit 34 L 35-52 % Mean Corpuscular Volume 82 80-99 fL Mean Corpuscular Hemoglobin 26 25-34 pg Mean Corpuscular Hemoglobin Concent 32 32-36 g/dL Red Cell Distribution Width 17.5 H 10.0-14.5 % Platelet Count 231 130-400 10^3/uL Mean Platelet Volume 9.9 9.0-12.2 fL Immature Granulocyte % (Auto) 0 % Neutrophils (%) (Auto) 57 42-75 % Lymphocytes (%) (Auto) 26 12-44 % Monocytes (%) (Auto) 14 H 0-12 % Eosinophils (%) (Auto) 2 0-10 % Basophils (%) (Auto) 1 0-10 % Neutrophils # (Auto) 3.0 1.8-7.8 10^3/uL Lymphocytes # (Auto) 1.4 1.0-4.0 10^3/uL Monocytes # (Auto) 0.7 0.0-1.0 10^3/uL Eosinophils # (Auto) 0.1 0.0-0.3 10^3/uL Basophils # (Auto) 0.1 0.0-0.1 10^3/uL Immature Granulocyte # (Auto) 0.0 0.0-0.1 10^3/uL Corrected Calcium 9.3 8.5-10.1 MG/DL Total Bilirubin 0.5 0.1-1.0 MG/DL Aspartate Amino Transf (AST/SGOT) 17 5-34 U/L Alanine Aminotransferase (ALT/SGPT) 9 0-55 U/L Alkaline Phosphatase 59 40-136 U/L Total Protein 6.2 L 6.4-8.2 GM/DL Albumin 3.5 3.2-4.5 GM/DL Physical Exam-([facility]) Physical Exam Vital Signs VS - Last 72 Hours, by Label 11/10/20 11/10/20 11/10/20 11/10/20 11:48 15:55 16:40 19:00 Temp 36.4 Pulse 67 72 80 Resp 16 19 B/P (MAP) 171/106 (127) 152/88 Pulse Ox 100 99 O2 Delivery Room Air Room Air 11/10/20 11/10/20 11/10/20 11/11/20 19:48 20:10 23:37 01:00 Temp 36.6 36.3 Pulse 67 61 70 Resp 18 16 B/P (MAP) 123/85 (98) 160/66 (97) Pulse Ox 100 98 O2 Delivery Room Air Room Air Room Air 11/11/20 11/11/20 11/11/20 11/11/20 04:03 07:00 07:35 08:00 Temp 36.7 36.4 Pulse 73 61 63 Resp 18 18 B/P (MAP) 170/73 (105) 144/71 (95) Pulse Ox 98 100 100 O2 Delivery Room Air Room Air Room Air 11/11/20 11/11/20 12:45 12:46 Temp 36.2 Pulse 67 95 Resp 18 B/P (MAP) Pulse Ox 99 O2 Delivery Room Air Capillary Refill : Less Than 3 Seconds General Appearance: WD/WN, no apparent distress, thin Neck: non-tender, full range of motion, supple Respiratory: chest non-tender, lungs clear, normal breath sounds, no respiratory distress, no accessory muscle use Cardiovascular: normal peripheral pulses, regular rate, rhythm, no edema, no murmur Gastrointestinal: non tender, soft; No guarding, No rebound, No tenderness Back: no CVA tenderness, no vertebral tenderness Extremities: normal range of motion, non-tender, normal inspection, no pedal edema, no calf tenderness, normal capillary refill Neurologic/Psychiatric: 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 as tested, no motor/sensory deficits, alert, normal mood/affect, oriented x 3 Skin: normal color, warm/dry Lymphatic: no adenopathy Assessment/Plan Assessment/Plan Admission Status: Inpatient Order (span 2 midnights) Reason for Inpatient Admission: patient requiring IV antibiotics and IVFs (1) Colitis Status: Acute Assessment & Plan: - Patient started on cipro/flagyl, will need outpatient scope (2) Melena Status: Chronic (3) Nausea Status: Acute Assessment & Plan: - Started on Zofran/Phenergen (4) HTN (hypertension) Status: Chronic (5) HLD (hyperlipidemia) Status: Chronic Copy Copies To 1: CAROL AVINA MD, HOLLY R MD November 11, 2020 12:27
[2020-11-11] MEDS ORDERED: FERR-84 PO (15:42)
[2020-11-11] MEDS ORDERED: ASPI-1238 PO (15:42)
[2020-11-11] MEDS ORDERED: OLME20TA21 PO (15:42)
[2020-11-11 15:44] VITALS: BP 150/60
[2020-11-11 19:00] VITALS: BP 155/72
[2020-11-12 00:12] VITALS: BP 134/62
[2020-11-12 04:37] LABS: BASOPHILS # (AUTO) 0.1 10^3/uL (0.0-0.1); BASOPHILS % (AUTO) 1 % (0-10); EOSINOPHILS # (AUTO) 0.1 10^3/uL (0.0-0.3); EOSINOPHILS % (AUTO) 2 % (0-10); HEMATOCRIT 33 % (35-52); HEMOGLOBIN 10.5 g/dL (11.5-16.0); LYMPHOCYTES # (AUTO) 1.3 10^3/uL (1.0-4.0); LYMPHOCYTES % (AUTO) 22 % (12-44); MEAN CORPUSCULAR HEMOGLOBIN 26 pg (25-34); MEAN CORPUSCULAR HGB CONC 32 g/dL (32-36); MEAN CORPUSCULAR VOLUME 81 fL (80-99); MEAN PLATELET VOLUME 9.7 fL (9.0-12.2); MONOCYTES # (AUTO) 0.7 10^3/uL (0.0-1.0); MONOCYTES % (AUTO) 12 % (0-12); NEUTROPHILS # (AUTO) 3.7 10^3/uL (1.8-7.8); NEUTROPHILS % (AUTO) 63 % (42-75); PLATELET COUNT 233 10^3/uL (130-400); WHITE BLOOD COUNT 5.9 10^3/uL (4.3-11.0)
[2020-11-12 04:38] VITALS: BP 151/64
[2020-11-12 04:46] LABS: ALBUMIN 3.3 GM/DL (3.2-4.5); CHLORIDE 107 MMOL/L (98-107); SODIUM 140 MMOL/L (135-145)
[2020-11-12 04:47] LABS: CALCIUM 8.6 MG/DL (8.5-10.1)
[2020-11-12 04:48] LABS: GLUCOSE 82 MG/DL (70-105); TOTAL PROTEIN 5.7 GM/DL (6.4-8.2)
[2020-11-12 04:49] LABS: CARBON DIOXIDE 23 MMOL/L (21-32)
[2020-11-12 04:50] LABS: BILIRUBIN,TOTAL 0.5 MG/DL (0.1-1.0)
[2020-11-12 04:52] LABS: ALKALINE PHOSPHATASE 55 U/L (40-136); CREATININE SERUM 0.69 MG/DL (0.60-1.30); GFR ESTIMATED > 60
[2020-11-12 04:53] LABS: BUN/CREATININE RATIO 6
[2020-11-12 04:55] LABS: ALANINE AMINOTRANSFERASE 10 U/L (0-55)
[2020-11-12] MEDS: metroNIDAZOLE 500MG/100ML IVPB 100 ML IV SCH ×3 (05:20→22:12)
[2020-11-12 07:25] VITALS: BP 135/78
[2020-11-12] MEDS: PANTOPRAZOLE 40 MG (PROTONIX) VIAL IV SCH ×2 (08:18→20:17)
[2020-11-12] MEDS ORDERED: KCL 20 MEQ TAB (K-DUR) PO ONE (09:30)
[2020-11-12] MEDS: ONDANSETRON 4 MG/2 ML (SDV) Z0FRAN IVP PRN ×2 (09:58→20:18)
[2020-11-12] MEDS: LOSARTAN 100 MG (COZAAR) TABLET PO SCH (09:58)
[2020-11-12] MEDS: ATENOLOL 50 MG (TENORMIN) TAB PO SCH ×2 (09:58→20:18)
[2020-11-12] MEDS: POTASSIUM CL 10MEQ/50ML IVPB 50 ML IV SCH ×4 (10:14→13:56)
--- NOTE | 2020-11-12 10:47 | Progress Note - Hospitalist ---
Subjective HPI/CC On Admission Date Seen by Provider: November 12, 2020 Time Seen by Provider: 09:30 Subjective/Events-last exam Patient continues to be nauseated. Denies chest pain or shortness of breath. Calcium was low at 3 today so we will replace IV since she is so nauseated. She has been on Sinemet in the past for I presume Parkinson's which I will restart knowing that this may make her nausea worse but it also makes using the Reglan somewhat problematic. Review of Systems Gastrointestinal: Nausea Neurological: Weakness Focused Exam Lactate Level 11/10/20 12:12: Lactic Acid Level 1.13 Objective Exam Vital Signs Vital Signs Date Time Temp Pulse Resp B/P (MAP) Pulse Ox O2 Delivery O2 Flow Rate FiO2 11/12/20 07:25 36.6 65 18 135/78 (97) 98 Room Air Capillary Refill : Less Than 3 Seconds General Appearance: WD/WN HEENT: Normal ENT Inspection Neck: Normal Inspection, Supple Respiratory: Lungs Clear, Normal Breath Sounds, No Accessory Muscle Use, No Respiratory Distress Cardiovascular: Regular Rate, Rhythm, No Edema, No Gallop, Systolic Murmur Gastrointestinal: Normal Bowel Sounds, Non Tender, Soft Extremity: No Pedal Edema Results/Procedures Lab Laboratory Tests 11/12/20 04:11 Patient resulted labs reviewed. Diagnosis/Problems Diagnosis/Problems (1) Hypokalemia Status: Acute (2) Nausea Status: Acute (3) Colitis Status: Acute (4) HTN (hypertension) Status: Chronic (5) HLD (hyperlipidemia) Status: Chronic TIRSO COONEY MD November 12, 2020 10:47
[2020-11-12] MEDS: CIPROFLOXACIN 400 MG/D5W 200 ML (PRE-MIX) IV SCH ×2 (11:16→23:51)
[2020-11-12] MEDS: SINEMET 10/100 (CARBIDOPA/LEVADOPA) TAB PO SCH ×3 (11:29→20:18)
[2020-11-12 11:45] VITALS: BP 122/65
[2020-11-12 15:20] VITALS: BP 104/57
[2020-11-12] MEDS: NS IV 1000 ML 1,000 ML IV SCH (15:25)
[2020-11-12 19:48] VITALS: BP 165/73
[2020-11-12] MEDS: SIMvastatin 10 MG (ZOCOR) TAB PO SCH (20:18)
[2020-11-13 00:35] VITALS: BP 140/69
[2020-11-13] MEDS: ONDANSETRON 4 MG/2 ML (SDV) Z0FRAN IVP PRN ×2 (01:23→08:50)
[2020-11-13 03:55] VITALS: BP 162/73
[2020-11-13 04:38] LABS: BASOPHILS # (AUTO) 0.1 10^3/uL (0.0-0.1); BASOPHILS % (AUTO) 1 % (0-10); EOSINOPHILS # (AUTO) 0.3 10^3/uL (0.0-0.3); EOSINOPHILS % (AUTO) 5 % (0-10); HEMATOCRIT 33 % (35-52); HEMOGLOBIN 10.5 g/dL (11.5-16.0); LYMPHOCYTES # (AUTO) 1.3 10^3/uL (1.0-4.0); LYMPHOCYTES % (AUTO) 23 % (12-44); MEAN CORPUSCULAR HEMOGLOBIN 26 pg (25-34); MEAN CORPUSCULAR HGB CONC 32 g/dL (32-36); MEAN CORPUSCULAR VOLUME 81 fL (80-99); MEAN PLATELET VOLUME 9.4 fL (9.0-12.2); MONOCYTES # (AUTO) 0.7 10^3/uL (0.0-1.0); MONOCYTES % (AUTO) 13 % (0-12); NEUTROPHILS # (AUTO) 3.3 10^3/uL (1.8-7.8); NEUTROPHILS % (AUTO) 58 % (42-75); PLATELET COUNT 228 10^3/uL (130-400); WHITE BLOOD COUNT 5.6 10^3/uL (4.3-11.0)
[2020-11-13 04:48] LABS: ALBUMIN 3.2 GM/DL (3.2-4.5); CHLORIDE 106 MMOL/L (98-107); POTASSIUM 3.2 MMOL/L (3.6-5.0); SODIUM 139 MMOL/L (135-145)
[2020-11-13 04:49] LABS: CALCIUM 8.6 MG/DL (8.5-10.1)
[2020-11-13 04:51] LABS: GLUCOSE 98 MG/DL (70-105); TOTAL PROTEIN 5.5 GM/DL (6.4-8.2)
[2020-11-13 04:52] LABS: CARBON DIOXIDE 25 MMOL/L (21-32)
[2020-11-13 04:53] LABS: BILIRUBIN,TOTAL 0.5 MG/DL (0.1-1.0)
[2020-11-13 04:54] LABS: ALKALINE PHOSPHATASE 51 U/L (40-136); GFR ESTIMATED > 60
[2020-11-13 04:55] LABS: BUN/CREATININE RATIO 4
[2020-11-13 04:57] LABS: ALANINE AMINOTRANSFERASE < 6 U/L (0-55)
[2020-11-13] MEDS: metroNIDAZOLE 500MG/100ML IVPB 100 ML IV SCH ×3 (05:57→22:06)
[2020-11-13] MEDS: METOCLOPRAMIDE INJ 10 MG/2 ML (REGLAN) IV PRN (05:59)
[2020-11-13] MEDS: NS IV 1000 ML 1,000 ML IV SCH (07:24)
[2020-11-13 07:25] VITALS: BP 180/82
[2020-11-13] MEDS: SINEMET 10/100 (CARBIDOPA/LEVADOPA) TAB PO SCH ×3 (08:49→20:08)
[2020-11-13] MEDS: PANTOPRAZOLE 40 MG (PROTONIX) VIAL IV SCH ×2 (08:49→20:07)
[2020-11-13] MEDS: LOSARTAN 100 MG (COZAAR) TABLET PO SCH (08:49)
[2020-11-13] MEDS: ATENOLOL 50 MG (TENORMIN) TAB PO SCH ×2 (08:49→20:08)
[2020-11-13] MEDS: CIPROFLOXACIN 400 MG/D5W 200 ML (PRE-MIX) IV SCH (11:56)
[2020-11-13 12:00] VITALS: BP 174/88
--- NOTE | 2020-11-13 12:46 | Progress Note - Hospitalist ---
Subjective HPI/CC On Admission Date Seen by Provider: November 13, 2020 Time Seen by Provider: 11:00 Subjective/Events-last exam Patient is without complaint today. She still not eating well or drinking well and still has some diarrhea stools. I discussed with her daughter that she has Hemoccult positive stools with an abnormality at the hepatic flexure on CT. We agreed to proceed with a colonoscopy for definitive diagnosis during this hospitalization since she is frail and not able to be discharged today. Review of Systems Gastrointestinal: Diarrhea Objective Exam Vital Signs Vital Signs Date Time Temp Pulse Resp B/P (MAP) Pulse Ox O2 Delivery O2 Flow Rate FiO2 11/13/20 12:31 69 11/13/20 08:00 100 Room Air 11/13/20 07:25 36.6 16 180/82 (114) Capillary Refill : Less Than 3 Seconds General Appearance: No Apparent Distress, WD/WN, Chronically ill Respiratory: Lungs Clear, Normal Breath Sounds, No Accessory Muscle Use, No Respiratory Distress Cardiovascular: Regular Rate, Rhythm, No Gallop, No JVD, Normal Peripheral Pulses, Systolic Murmur Gastrointestinal: Normal Bowel Sounds, Non Tender, Soft Rectal: Deferred Extremity: Normal Capillary Refill, Non Tender, No Calf Tenderness, No Pedal Edema Neurologic/Psychiatric: Alert, Normal Mood/Affect Skin: Warm/Dry Results/Procedures Lab Laboratory Tests 11/13/20 04:12 Patient resulted labs reviewed. Assessment/Plan Assessment and Plan Assess & Plan/Chief Complaint Diarrhea with Hemoccult positive stools and abnormal CT hepatic flexure plan to proceed with colonoscopy Anemia most likely secondary to iron deficiency. Senile dementia the Alzheimer's type Fragile social situation living with her 87-year-old just had surgery Hypertension Hypokalemia will change IV fluids to include potassium especially since she will be going for bowel prep Diagnosis/Problems Diagnosis/Problems (1) Hypokalemia Status: Acute (2) Nausea Status: Acute (3) Colitis Status: Acute (4) HTN (hypertension) Status: Chronic (5) HLD (hyperlipidemia) Status: Chronic (6) GI bleeding Status: Acute Qualifiers: GI bleed type/associated pathology: melena Qualified Codes: K92.1 - Melena (7) Anemia Status: Acute Qualifiers: Iron deficiency anemia type: chronic blood loss TIRSO COONEY MD November 13, 2020 12:46
--- NOTE | 2020-11-13 12:51 | Consultation - Surgery ---
History of Present Illness History of Present Illness Patient Consulted On(erendira/time) 11/13/20 12:41 Time Seen by Provider: 12:21 History of Present Illness Surgery asked to consult regarding Abdominal pain and ??Hepatic Flexure mass. HPI per ED: Pt to ED room [facility] via [facility]. Pt c/o lower abd pain and nausea. Pt reported to EMS she was previously told she needed an abd surgery but pt did not have procedure done and does not remember what procedure it was. Pt is poor historian. 85-year-old female presenting with complaints of mid abdominal pain and nausea. She denies having any actual vomiting. She states this is been worse since yesterday. She had similar symptoms in July 2019 when she was admitted for colitis. She was told that she needed to be taking iron supplements and needed to have a colonoscopy after discharge. She has not followed up to have a colonoscopy. She does take the iron supplements but not every day. She denies any pain with urination. She has no pain with having a bowel movement but has noticed they are black in color. She has not seen any bright red blood in her stools. Timing/Duration: 1-2 Days Severity/Quality: Moderate, Cramping, Sharp Location: Epigastric, Periumbilical Radiation: No Radiation Activities at Onset: None Associated Symptoms: No Back Pain, No Chest Pain, No Diaphoresis, No Fever/Chills, No Fatigue, No Headache, No Heartburn; Nausea/Vomiting (nausea but no vomiting); No Rash, No Shortness of Air, No Swelling/Mass in Abdomen, No Syncope; Weakness (generalized) When I spoke to the pt and her daughter today her main complaint was of abdominal pain and weakness. Allergies and Home Medications Allergies Coded Allergies: No Known Drug Allergies (Unverified , 07/28/19) Home Medications Aspirin 81 Mg Tablet.dr, 81 MG PO DAILY, (Reported) Last Action: Held Atenolol 50 Mg Tablet, 50 MG PO BID, (Reported) Last Action: Continued Carbidopa/Levodopa 1 Each Tablet, 2 TAB PO TID, (Reported) Last Action: Continued Ferrous Sulfate 325 Mg Tablet, 325 MG PO DAILY PRN for WEAKNESS, (Reported) Last Action: Held Lovastatin 10 Mg Tablet, 10 MG PO HS, (Reported) Last Action: Converted Olmesartan Medoxomil 20 Mg Tablet, 20 MG PO DAILY, (Reported) Last Action: Continued Patient Home Medication List Home Medication List Reviewed: Yes Past Vfqwmit-Fygzkg-Qfxkig Hx Patient Social History Smoking Status: Never a Smoker 2nd Hand Smoke Exposure: No Recent Hopitalizations: No Seasonal Allergies Seasonal Allergies: No Surgeries History of Surgeries: Yes Surgeries: Gallbladder, Hysterectomy Respiratory History of Respiratory Disorde: No Cardiovascular History of Cardiac Disorders: Yes Cardiac Disorders: Hypertension Neurological History of Neurological Disord: Yes Neurological Disorders: Dementia, Parkinson's Disease 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 Genitourinary History of Genitourinary Disor: No Gastrointestinal History of Gastrointestinal Di: No Musculoskeletal History of Musculoskeletal Dis: No Endocrine History of Endocrine Disorders: No HEENT History of HEENT Disorders: No Cancer History of Cancer: No Psychosocial History of Psychiatric Problem: No Integumentary History of Skin or Integumenta: No Blood Transfusions History of Blood Disorders: No Family Medical History Significant Family History: Heart Disease, Cancer, Diabetes Review of Systems-General Constitutional: malaise, weakness, weight loss (pt not able to eat much) EENTM: hearing loss; No mouth pain, No mouth swelling, No epistaxis, No throat swelling Respiratory: No cough, No dyspnea on exertion, No hemoptysis Cardiovascular: No chest pain, No palpitations Gastrointestinal: abdominal pain; No jaundice; loss of appetite, nausea; No vomiting Genitourinary: No dysuria, No frequency, No hematuria Musculoskeletal: back pain, joint pain, joint swelling, muscle stiffness Skin: No change in color, No change in hair/nails Psychiatric/Neurological: Anxiety; Denies Depressed, Denies Seizure, Denies Tremors; Other (hx of Alzheimers) Other denies any hx of abnormal bleeding or bruising Physical Exam-General Problems Physical Exam Vital Signs Vital Signs - First Documented 11/10/20 11:48 Temp 36.4 Pulse 67 Resp 16 B/P (MAP) 171/106 (127) Pulse Ox 100 O2 Delivery Room Air Capillary Refill : Less Than 3 Seconds General Appearance: WD/WN, thin Eyes: Bilateral Eye PERRL, Bilateral Eye EOMI HEENT: pharynx normal; No scleral icterus (R), No scleral icterus (L); other (poor dentition) Neck: supple; No thyromegaly Respiratory: lungs clear, normal breath sounds, no respiratory distress, no accessory muscle use Cardiovascular: regular rate, rhythm, no murmur Gastrointestinal: soft, no organomegaly, tenderness (diffusely, but more epigastric and RUQ) Rectal: deferred Back: no CVA tenderness, no vertebral tenderness Extremities: no pedal edema, no calf tenderness, normal capillary refill Neurologic/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 tested, alert, normal mood/affect Skin: normal color, warm/dry Lymphatic: no adenopathy (neck, axilla or groin) Data Review Labs Laboratory Tests 11/13/20 04:12: White Blood Count 5.6, Red Blood Count 4.08, Hemoglobin 10.5L, Hematocrit 33L, Mean Corpuscular Volume 81, Mean Corpuscular Hemoglobin 26, Mean Corpuscular Hemoglobin Concent 32, Red Cell Distribution Width 17.1H, Platelet Count 228, Mean Platelet Volume 9.4, Immature Granulocyte % (Auto) 0, Neutrophils (%) (Auto) 58, Lymphocytes (%) (Auto) 23, Monocytes (%) (Auto) 13H, Eosinophils (%) (Auto) 5, Basophils (%) (Auto) 1, Neutrophils # (Auto) 3.3, Lymphocytes # (Auto) 1.3, Monocytes # (Auto) 0.7, Eosinophils # (Auto) 0.3, Basophils # (Auto) 0.1, Immature Granulocyte # (Auto) 0.0, Sodium Level 139, Potassium Level 3.2L, Chloride Level 106, Carbon Dioxide Level 25, Anion Gap 8, Blood Urea Nitrogen 3L , Creatinine 0.70, Estimat Glomerular Filtration Rate > 60, BUN/Creatinine Ratio 4, Glucose Level 98, Calcium Level 8.6, Corrected Calcium 9.2, Total Bilirubin 0 .5, Aspartate Amino Transf (AST/SGOT) 18, Alanine Aminotransferase (ALT/SGPT) < 6, Alkaline Phosphatase 51, Total Protein 5.5L, Albumin 3.2 Radiology Date of Exam:11/10/20 CT ABDOMEN/PELVIS W EXAMINATION: CT abdomen and pelvis with intravenous contrast. TECHNIQUE: Multiple contiguous axial images were obtained through the abdomen and pelvis after the uneventful administration of intravenous contrast. All CT scans use one or more of the following dose optimizing techniques: automated exposure control, MA and/or KvP adjustment based on patient size and exam type or iterative reconstruction. HISTORY: Abdominal pain. COMPARISON: CT abdomen/pelvis 07/28/2019. FINDINGS: Lung bases: Bibasilar dependent atelectasis. Solid organs: Multiple hepatic cysts are unchanged. The gallbladder is surgically absent. There is no biliary ductal dilation. Pancreas is normal. Spleen is normal. Adrenal glands are normal. There are bilateral renal cysts which require no followup. The kidneys are otherwise unremarkable without hydronephrosis. Bowel: The stomach and small bowel are normal without obstruction. There is wall thickening and inflammatory stranding near the hepatic flexure. Scattered colonic diverticulosis. No findings of acute appendicitis. Peritoneum: There is no intraperitoneal free fluid or free air. No suspicious lymphadenopathy. Vasculature: Calcification of the aorta without aneurysm. Musculoskeletal: Degenerative changes of the spine without suspicious osseous lesion or compression fracture. Pelvis: The uterus is surgically absent. No adnexal mass. There is a filling defect within the inferior urinary bladder seen on delayed images (series 10 image 64). IMPRESSION: 1. Wall thickening and inflammation of the hepatic flexure of the colon. Although this could represent an infectious or inflammatory colitis, given similar findings on the CT of 07/20/2019, underlying neoplasm is of concern. Recommend correlation with colonoscopy to exclude a neoplastic process if this has not already been performed. 2. Colonic diverticulosis without findings of diverticulitis. Dictated by: Dictated on workstation # [id number] Dict: 11/10/20 1310 Trans: 11/10/20 1441 [id number] Interpreted by: MARIA ALEJANDRA BLUE DO Electronically signed by: MARIA ALEJANDRA BLUE DO 11/10/20 1441 Assessment/Plan Assessment/Plan Assessment/Plan Abdominal pain Colitis vs Mass at Hepatic Flexure Anemia with positive Hemoccult HTN Dementia Pt has fullness at her Hepatic flexure that really has not changed since July 2019, this is concerning for malignancy. Her daughter is here now and her nephew, along with her .....they are in agreement to proceed with Colonoscopy. "At least find out wha is going on". I went over risks and complications of the procedure; not limited to pain, bleeding, infection and even intestinal perforation. I did give option of doing nothing except control pain, symptoms etc. We also talked about the worst case scenario of cancer and what would she want to do if that was what we found; she thinks she would want surgery. All questions answered to their satisfaction. VANE JURADO DO November 13, 2020 12:51
[2020-11-13] MEDS ORDERED: MAGNESIUM CITRATE 300 ML BTL PO ONE (13:00)
[2020-11-13] MEDS ORDERED: BISACODYL 5 MG (DULCOLAX) TABLET PO SCH ×2 (13:00→15:00)
[2020-11-13] MEDS: POTASSIUM CHLORIDE INJ 20 MEQ in D5 LR IV SOLUTION 1,000 ML IV SCH ×2 (13:02→23:58)
[2020-11-13 15:51] VITALS: BP 139/74
[2020-11-13] MEDS ORDERED: polyethylene glycoL Bowel Prep(MIRALAX) 238 GM PO SCH (18:00)
[2020-11-13 19:44] VITALS: BP 168/72
[2020-11-13] MEDS: SIMvastatin 10 MG (ZOCOR) TAB PO SCH (20:08)
[2020-11-14] VITALS (8 sets, daily range): BP systolic 113–193; BP diastolic 61–87
[2020-11-14] MEDS: CIPROFLOXACIN 400 MG/D5W 200 ML (PRE-MIX) IV SCH ×2 (00:42→13:59)
[2020-11-14] MEDS ORDERED: HALOPERIDOL 5 MG/ML (HALDOL) VIAL ONE (02:36)
[2020-11-14] MEDS ORDERED: HALOPERIDOL 5 MG/ML (HALDOL) VIAL IM ONE (02:45)
[2020-11-14] MEDS: ATENOLOL 50 MG (TENORMIN) TAB PO SCH ×2 (04:31→20:23)
[2020-11-14 05:13] LABS: BASOPHILS # (AUTO) 0.1 10^3/uL (0.0-0.1); BASOPHILS % (AUTO) 1 % (0-10); EOSINOPHILS # (AUTO) 0.3 10^3/uL (0.0-0.3); EOSINOPHILS % (AUTO) 4 % (0-10); HEMATOCRIT 38 % (35-52); HEMOGLOBIN 12.1 g/dL (11.5-16.0); LYMPHOCYTES # (AUTO) 1.2 10^3/uL (1.0-4.0); LYMPHOCYTES % (AUTO) 17 % (12-44); MEAN CORPUSCULAR HEMOGLOBIN 26 pg (25-34); MEAN CORPUSCULAR HGB CONC 32 g/dL (32-36); MEAN CORPUSCULAR VOLUME 82 fL (80-99); MEAN PLATELET VOLUME 9.4 fL (9.0-12.2); MONOCYTES # (AUTO) 0.9 10^3/uL (0.0-1.0); MONOCYTES % (AUTO) 14 % (0-12); NEUTROPHILS # (AUTO) 4.4 10^3/uL (1.8-7.8); NEUTROPHILS % (AUTO) 65 % (42-75); PLATELET COUNT 264 10^3/uL (130-400); WHITE BLOOD COUNT 6.9 10^3/uL (4.3-11.0)
[2020-11-14 05:31] LABS: ALBUMIN 3.8 GM/DL (3.2-4.5)
[2020-11-14 05:32] LABS: CHLORIDE 106 MMOL/L (98-107); SODIUM 139 MMOL/L (135-145)
[2020-11-14 05:33] LABS: CALCIUM 9.1 MG/DL (8.5-10.1)
[2020-11-14 05:34] LABS: GLUCOSE 126 MG/DL (70-105); TOTAL PROTEIN 6.6 GM/DL (6.4-8.2)
[2020-11-14 05:35] LABS: CARBON DIOXIDE 23 MMOL/L (21-32)
[2020-11-14 05:36] LABS: BILIRUBIN,TOTAL 0.3 MG/DL (0.1-1.0)
[2020-11-14 05:37] LABS: ALKALINE PHOSPHATASE 65 U/L (40-136)
[2020-11-14 05:38] LABS: CREATININE SERUM 0.76 MG/DL (0.60-1.30); GFR ESTIMATED > 60
[2020-11-14] MEDS: metroNIDAZOLE 500MG/100ML IVPB 100 ML IV SCH ×3 (05:38→22:40)
[2020-11-14 05:39] LABS: BUN/CREATININE RATIO 3
[2020-11-14 05:40] LABS: ALANINE AMINOTRANSFERASE 8 U/L (0-55)
[2020-11-14] MEDS: POTASSIUM CHLORIDE INJ 20 MEQ in D5 LR IV SOLUTION 1,000 ML IV SCH ×3 (06:24→22:42)
[2020-11-14] MEDS ORDERED: MAGNESIUM 1 GM/100 ML IVPB 100 ML IV ONE (07:30)
[2020-11-14] MEDS: POTASSIUM CL 10MEQ/50ML IVPB 50 ML IV SCH ×4 (07:59→11:13)
[2020-11-14] MEDS: PANTOPRAZOLE 40 MG (PROTONIX) VIAL IV SCH ×2 (08:00→20:24)
[2020-11-14] MEDS: SINEMET 10/100 (CARBIDOPA/LEVADOPA) TAB PO SCH ×3 (08:02→20:23)
[2020-11-14] MEDS: LOSARTAN 100 MG (COZAAR) TABLET PO SCH (08:02)
--- NOTE | 2020-11-14 10:17 | Progress Note - Hospitalist ---
Subjective HPI/CC On Admission Date Seen by Provider: November 14, 2020 Time Seen by Provider: 09:30 Subjective/Events-last exam Pt ready for colonoscopy today Dementia causes pleasant confusion There is an abnormality at the hepatic flexure so will evaluate that once colonoscopy is completed She was confused all night Potassium 3.0 replacing that through her IV Hgb stable at 12 Will DC telemetry Review of Systems General: Fatigue, Malaise Neurological: Confusion Objective Exam Vital Signs Vital Signs Date Time Temp Pulse Resp B/P (MAP) Pulse Ox O2 Delivery O2 Flow Rate FiO2 11/15/20 04:26 36.3 67 18 172/70 (104) 100 Room Air 11/14/20 13:40 4 Capillary Refill : Less Than 3 Seconds General Appearance: No Apparent Distress, WD/WN, Chronically ill Respiratory: Lungs Clear Cardiovascular: Regular Rate, Rhythm Neurologic/Psychiatric: Alert, Disoriented Results/Procedures Lab Patient resulted labs reviewed. Assessment/Plan Assessment and Plan Assess & Plan/Chief Complaint Assessment: Hepatic flexure mass s/p biopsy during Colonoscopy 11/14/20 Dementia Anemia HTN Plan: Await biopsy Monitor hgb SHAWNA KUMAR DO November 14, 2020 10:17
[2020-11-14] MEDS ORDERED: LACTATED RINGERS 1,000 ML IV ONE (12:38)
[2020-11-14] MEDS ORDERED: LACTATED RINGERS 1,000 ML IV STA (12:42)
[2020-11-14] MEDS ORDERED: proPOfol 200 MG/20 ML (DIPRIVAN) VIAL IV ONE (13:04)
--- NOTE | 2020-11-14 13:40 | Anesthesia-General Post-Op ---
MAC Patient Condition Mental Status/LOC: Same as Preop Cardiovascular: Satisfactory Nausea/Vomiting: Absent Respiratory: Satisfactory Pain: Controlled Complications: Absent Post Op Complications Complications None Follow Up Care/Instructions Patient Instructions None needed. Anesthesiology Discharge Order Discharge Order Patient is doing well, no complaints, stable vital signs, no apparent adverse anesthesia problems. No complications reported per nursing. SHANTHI JAMISON CRNA November 14, 2020 13:40
--- NOTE | 2020-11-14 13:58 | Progress Note-Post Operative ---
Post-Operative Progess Note Surgeon (s)/Intensive Care Nurse (s) Surgeon VANE JURADO DO Intensive Care Nurse: none Pre-Operative Diagnosis Hepatic flexure mass, GI bleed Post-Operative Diagnosis same pending path Procedure & Operative Findings Date of Procedure 11/14/20 Procedure Performed/Findings After informed consent was obtained, the patient was brought to the endoscopy suite, placed in bed in left lateral decubitus position. She was administered IV sedation by the ECONOMETRICS PROFESSOR who then monitored her vitals the entire time, heart rate, blood pressure and pulse ox, started the colonoscopy. On the way in, noted [diverticula ], took a picture of this, then pushed all the way to the transverse colon and right about the hepatic flexure a mass was noted. It was not completely occluding the lumen, but could not get my scope past this. At this time I elected to do hot biopsies; two biopsie were done to make sure I got a good specimen and then continued down the transverse colon, to the splenic flexure, into the descending colon down into the sigmoid and finally into the rectum, retroflexed in the rectal vault, saw sone minimal internal hemorrhoids and took a picture.Then removed the scope. The patient tolerated the procedure. She was recovered in endoscopy suite. Anesthesia Type IV sedation by ECONOMETRICS PROFESSOR Estimated Blood Loss Estimated blood loss (mL): scant Specimens/Packing Specimens Removed biopsies of hepatic flexure mass VANE JURADO DO November 14, 2020 13:58
--- NOTE | 2020-11-14 16:17 | Progress Note - Surgery ---
Subjective Time Seen by a Provider: 15:51 Subjective/Events-last exam Pt seen and examined, sleeping comfortably but easily arousable. States minimal abdominal pain, no change from yesterday. Review of Systems General: Fatigue Pulmonary: No Dyspnea, No Cough Cardiovascular: No: Chest Pain, Palpitations Gastrointestinal: Abdominal Pain; No: Nausea, Vomiting Objective Exam Vital Signs Date Time Temp Pulse Resp B/P (MAP) Pulse Ox O2 Delivery O2 Flow Rate FiO2 11/14/20 13:45 64 16 100 Room Air 11/14/20 13:40 58 16 100 OxyMask 4 11/14/20 11:25 36.0 62 20 166/80 (108) 97 Room Air 11/14/20 08:27 98 Room Air 11/14/20 07:12 36.6 79 20 152/74 (100) 98 Room Air 11/14/20 06:52 75 11/14/20 04:31 36.6 72 22 193/61 (105) 99 Room Air 11/14/20 01:06 66 11/14/20 00:44 36.5 70 22 154/82 (106) 100 Room Air 11/13/20 20:00 97 Room Air 11/13/20 19:44 36.4 64 22 168/72 (104) 98 Room Air 11/13/20 19:00 75 I & O 11/14/20 07:00 Intake Total 2480 ml Balance 2480 ml Capillary Refill : Less Than 3 Seconds General Appearance: No Apparent Distress, Chronically ill Respiratory: Lungs Clear, Normal Breath Sounds, No Accessory Muscle Use, No Respiratory Distress Cardiovascular: Regular Rate, Rhythm, Systolic Murmur Gastrointestinal: soft, no organomegaly, tenderness (diffusely, but more epigastric and RUQ) Extremity: No Calf Tenderness, No Pedal Edema Neurologic/Psychiatric: Alert Results Lab Laboratory Tests 11/14/20 04:33: Magnesium Level 2.2 11/14/20 04:35: White Blood Count 6.9, Red Blood Count 4.69, Hemoglobin 12.1, Hematocrit 38, Mean Corpuscular Volume 82, Mean Corpuscular Hemoglobin 26, Mean Corpuscular Hemoglobin Concent 32, Red Cell Distribution Width 17.1H, Platelet Count 264, Mean Platelet Volume 9.4, Immature Granulocyte % (Auto) 0, Neutrophils (%) (Auto) 65, Lymphocytes (%) (Auto) 17, Monocytes (%) (Auto) 14H, Eosinophils (%) (Auto) 4, Basophils (%) (Auto) 1, Neutrophils # (Auto) 4.4, Lymphocytes # (Auto) 1.2, Monocytes # (Auto) 0.9, Eosinophils # (Auto) 0.3, Basophils # (Auto) 0.1, Immature Granulocyte # (Auto) 0.0, Sodium Level 139, Potassium Level 3.0L, Chloride Level 106, Carbon Dioxide Level 23, Anion Gap 10, Blood Urea Nitrogen 2L, Creatinine 0.76, Estimat Glomerular Filtration Rate > 60, BUN/Creatinine Ratio 3, Glucose Level 126H, Calcium Level 9.1, Corrected Calcium 9.3, Total Bilirubin 0.3, Aspartate Amino Transf (AST/SGOT) 21, Alanine Aminotransferase (ALT/SGPT) 8, Alkaline Phosphatase 65, Total Protein 6.6, Albumin 3.8 11/14/20 04:39: Activated Partial Thromboplast Time 30 Microbiology 11/13/20 MRSA Screen - Final, Complete MRSA not isolated Assessment/Plan Assessment/Plan Assessment/Plan Mass at Hepatic Flexure - confirmed on colonoscopy and bx done Anemia probably secondary to mass HTN Dementia Colonoscopy done, await biopsy results. Did discuss findings with Daughter and . They agreed to wait to make next decision based on pathology. I did tell them I think it is probably cancer. Clinical Quality Measures DVT/VTE Risk/Contraindication: Contraindications-Pharm: Other *list below* Other: VANE Salvador DO November 14, 2020 16:17
[2020-11-14] MEDS: SIMvastatin 10 MG (ZOCOR) TAB PO SCH (20:24)
[2020-11-15] MEDS: CIPROFLOXACIN 400 MG/D5W 200 ML (PRE-MIX) IV SCH (00:01)
[2020-11-15 00:45] VITALS: BP 132/71
[2020-11-15] MEDS: ONDANSETRON 4 MG/2 ML (SDV) Z0FRAN IVP PRN ×2 (02:07→08:47)
[2020-11-15 04:26] VITALS: BP 172/70
[2020-11-15 05:41] LABS: BASOPHILS # (AUTO) 0.1 10^3/uL (0.0-0.1); BASOPHILS % (AUTO) 2 % (0-10); EOSINOPHILS # (AUTO) 0.3 10^3/uL (0.0-0.3); EOSINOPHILS % (AUTO) 7 % (0-10); HEMATOCRIT 34 % (35-52); LYMPHOCYTES # (AUTO) 1.3 10^3/uL (1.0-4.0); LYMPHOCYTES % (AUTO) 25 % (12-44); MEAN CORPUSCULAR HEMOGLOBIN 26 pg (25-34); MEAN CORPUSCULAR HGB CONC 32 g/dL (32-36); MEAN CORPUSCULAR VOLUME 81 fL (80-99); MEAN PLATELET VOLUME 9.6 fL (9.0-12.2); MONOCYTES # (AUTO) 0.7 10^3/uL (0.0-1.0); MONOCYTES % (AUTO) 13 % (0-12); NEUTROPHILS # (AUTO) 2.9 10^3/uL (1.8-7.8); NEUTROPHILS % (AUTO) 54 % (42-75); PLATELET COUNT 227 10^3/uL (130-400); WHITE BLOOD COUNT 5.3 10^3/uL (4.3-11.0)
[2020-11-15] MEDS: metroNIDAZOLE 500MG/100ML IVPB 100 ML IV SCH ×2 (05:52→12:55)
[2020-11-15 05:57] LABS: ALBUMIN 3.2 GM/DL (3.2-4.5); CHLORIDE 108 MMOL/L (98-107); POTASSIUM 3.5 MMOL/L (3.6-5.0); SODIUM 139 MMOL/L (135-145)
[2020-11-15 05:59] LABS: CALCIUM 8.7 MG/DL (8.5-10.1)
[2020-11-15 06:00] LABS: GLUCOSE 122 MG/DL (70-105); TOTAL PROTEIN 5.6 GM/DL (6.4-8.2)
[2020-11-15 06:01] LABS: CARBON DIOXIDE 24 MMOL/L (21-32)
[2020-11-15 06:02] LABS: BILIRUBIN,TOTAL 0.3 MG/DL (0.1-1.0)
[2020-11-15 06:03] LABS: ALKALINE PHOSPHATASE 52 U/L (40-136); CREATININE SERUM 0.67 MG/DL (0.60-1.30); GFR ESTIMATED > 60
[2020-11-15 06:04] LABS: BUN/CREATININE RATIO 3
[2020-11-15 06:06] LABS: ALANINE AMINOTRANSFERASE 7 U/L (0-55)
--- NOTE | 2020-11-15 07:02 | Progress Note - Hospitalist ---
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 is an ongoing issue Protonix and Zofran have been given Family decision for resection and treatment versus nothing, awaiting there decision Placed a midline since her IV went bad Review of Systems General: Fatigue, Malaise Gastrointestinal: Nausea, Vomiting Neurological: Confusion Objective Exam Vital Signs Vital Signs Date Time Temp Pulse Resp B/P (MAP) Pulse Ox O2 Delivery O2 Flow Rate FiO2 11/16/20 04:17 36.4 61 16 189/81 (117) 100 Room Air 11/14/20 13:40 4 Capillary Refill : Less Than 3 Seconds General Appearance: No Apparent Distress, WD/WN, Chronically ill Respiratory: Lungs Clear Cardiovascular: Regular Rate, Rhythm Neurologic/Psychiatric: Alert, Oriented x3, Disoriented Results/Procedures Lab Laboratory Tests 11/15/20 05:15 Patient resulted labs reviewed. Assessment/Plan Assessment and Plan Assess & Plan/Chief Complaint Assessment: Hepatic flexure mass s/p biopsy during Colonoscopy 11/14/20 Dementia Anemia HTN Plan: Await biopsy Monitor hgb 11/15/20: Nausea control Biopsy pending Midline Clinical Quality Measures DVT/VTE Risk/Contraindication: Contraindications-Pharm: Other *list below* Other: SHAWNA Cagle DO November 15, 2020 07:02
[2020-11-15 07:28] VITALS: BP 166/97
[2020-11-15] MEDS: SINEMET 10/100 (CARBIDOPA/LEVADOPA) TAB PO SCH ×3 (08:42→20:23)
[2020-11-15] MEDS: ATENOLOL 50 MG (TENORMIN) TAB PO SCH ×2 (08:42→20:23)
[2020-11-15] MEDS: LOSARTAN 100 MG (COZAAR) TABLET PO SCH (08:42)
[2020-11-15] MEDS: PANTOPRAZOLE 40 MG (PROTONIX) VIAL IV SCH ×2 (08:42→20:23)
--- NOTE | 2020-11-15 09:47 | Physical Therapy Evaluation ---
PT Evaluation-General Medical Diagnosis Admission Date November 10, 2020 at 16:40 Medical Diagnosis: colitis/GI bleed Onset Date: November 10, 2020 Therapy Diagnosis Therapy Diagnosis: debility/weakness Precautions Precautions/Isolations: Fall Prevention, Standard Precautions, Pressure Ulcer Referral Physician: Juliocesar Reason for Referral: Evaluation/Treatment Medical History Pertinent Medical History: Dementia, HTN, Parkinson's Current History EMS secondary to abdominal pain Reviewed History: Yes Social History Home: Single Level Current Living Status: Spouse Entry Into Home: Level Entry Prior Prior Level of Function SCALE: Activities may be completed with or without assistive devices. 2-Ufdjqhkcpe-uyycbic completes the activity by him/herself with no assistance from a helper. 5-Set-up or Clean-up Assistance-helper sets up or cleans up; patient completes activity. [place] assists only prior to or following the activity. 4-Supervision or Touching Assistance-helper provides verbal cues and/or touching/steadying and/or contact guard assistance as patient completes activity. Assistance may be provided throughout the activity or intermittently. 3-Partial/Moderate Assistance-helper does LESS THAN HALF the effort. [place] lifts, holds or supports trunk or limbs, but provides less than half the effort. 2-Substantial/Maximal Assistance-helper does MORE THAN HALF the effort. [place] lifts or holds trunk or limbs and provides more than half the effort. 6-Brclmbsfq-xzojjs does ALL the effort. Patient does none of the effort to complete the activity. Or, the assistance of 2 or more helpers is required for the patient to complete the activity. If activity was not attempted, code reason: 7-Patient Refused. 9-Not Applicable-not attempted and the patient did not perform the activity before the current illness, exacerbation or injury. 10-Not Attempted due to Environmental Limitations-(lack of equipment, weather restraints, etc.). 88-Not Attempted due to Medical Conditions or Safety Concerns. Bed Mobility: 6 Transfers (B,C,W/C): 6 Gait: 6 Stairs: 9 Wheelchair Mobility: 9 Indoor Mobility (Ambulation): Independent Stairs: Not Applicalbe Prior Device Use: cane PT Evaluation-Current Subjective Patient agrees to PT. Objective Patient Orientation: Person, Time, Situation ROM/Strength ROM Lower Extremities bilateral LE WFL Strength Lower Extremities 4-/5 grossly bilateral LE Integumentary/Posture Integumentary refer to nursing notes Bowel Incontinence: No Bladder Incontinence: No Posture WFL Neuromuscular (Tone, Coordination, Reflexes) grossly intact Sensory Vision: Functional Hearing: Functional Transfers Roll Left to Right (QC): 6 Sit to Lying (QC): 6 Lying to Sitting/Side of Bed(Q: 6 Sit to Stand (QC): 6 Chair/Wfu-va-Zdysb Xfer(QC): 6 Toilet Transfer (QC): 6 Gait Does the Patient Walk?: Yes Mode of Locomotion: Walk Anticipated Mode of Locomotion: Walk Walk 10 feet (QC): 4 Walk 50 ft with 2 Turns(QC): 4 Walk 150 ft (QC): 4 Gait Assistive Device: FWW Comments/Gait Description SBA for safety with patient ambulating without difficulty or LOB Wheelchair Training Does the Pt Use a Wheelchair?: No Balance Sitting Static: Normal Sitting Dynamic: Normal Standing Static: Normal Standing Dynamic: Normal Picking up an Object (QC): 6 (donned slippers) Assessment/Needs 85 y.o. female, will be seen short term by skilled PT to address functional mobility to ensure safe return to home with spouse/family at maximum LOF. Rehab Potential: Fair PT [facility] Goals Straight Tooth Gear Generator Operator Goals PT [facility] Goals Time Frame: November 25, 2020 Roll Left & Right (QC): 6 Sit to Lying (QC): 6 Lying-Sitting on Side/Bed(QC): 6 Sit to Stand (QC): 6 Chair/Hae-nm-Xyeqm Xfer(QC): 6 Toilet Transfer (QC): 6 Does the Patient Walk: Yes Walk 10 feet (QC): 6 Walk 50ft with 2 Turns (QC): 6 Walk 150 ft (QC): 6 PT Plan Problem List Problem List: Activity Tolerance, Functional Strength, Safety Treatment/Plan Treatment Plan: Continue Plan of Care Treatment Plan: Education, Functional Activity Hunter, Functional Strength, Gait, Safety, Therapeutic Exercise, Transfers Treatment Duration: November 25, 2020 Frequency: 6 times per week Estimated Hrs Per Day: .25 hour per day Patient and/or Family Agrees t: Yes Discharge Recommendations Therapy Discharge Recommendati: Home & Family Time/GCodes Time In: 806 Time Out: 817 Total Billed Treatment Time: 11 Total Billed Treatment 1 visit EVMod 11 min MYRTLE JAMES PT November 15, 2020 09:47
[2020-11-15 11:00] VITALS: BP 188/96
[2020-11-15] MEDS: POTASSIUM CL 10MEQ/50ML IVPB 50 ML IV SCH ×4 (11:48→16:29)
--- NOTE | 2020-11-15 14:51 | Occupational Therapy Eval ---
OT Evaluation-General/PLF Medical Diagnosis Admission Date November 10, 2020 at 16:40 Medical Diagnosis: colitis/GI bleed Onset Date: November 10, 2020 Therapy Diagnosis Therapy Diagnosis: Weakness Precautions Precautions/Isolations: Fall Prevention, Standard Precautions, Pressure Ulcer Weight Bear Status Weight Bearing Restriction: Weight Bearing/Tolerated Referral Physician: Jluiocesar Abraham Reason: Activity Tolerance, Self Care, Evaluation/Treatment, Strengthening/ROM Medical History Pertinent Medical History: Dementia, HTN, Parkinson's Current History Hepatic flexure mass s/p biopsy during colonoscopy Reviewed History: Yes Social History Home: Single Level Current Living Status: Spouse Entry Into Home: Level Entry ADL-Prior Level of Function SCALE: Activities may be completed with or without assistive devices. 2-Wfrffuyfct-snyrhzm completes the activity by him/herself with no assistance from a helper. 5-Set-up or Clean-up Assistance-helper sets up or cleans up; patient completes activity. [place] assists only prior to or following the activity. 4-Supervision or Touching Assistance-helper provides verbal cues and/or touching/steadying and/or contact guard assistance as patient completes activity. Assistance may be provided throughout the activity or intermittently. 3-Partial/Moderate Assistance-helper does LESS THAN HALF the effort. [place] lifts, holds or supports trunk or limbs, but provides less than half the effort. 2-Substantial/Maximal Assistance-helper does MORE THAN HALF the effort. [place] lifts or holds trunk or limbs and provides more than half the effort. 8-Tkpznqafb-umfngr does ALL the effort. Patient does none of the effort to complete the activity. Or, the assistance of 2 or more helpers is required for the patient to complete the activity. If activity was not attempted, code reason: 7-Patient Refused. 9-Not Applicable-not attempted and the patient did not perform the activity before the current illness, exacerbation or injury. 10-Not Attempted due to Environmental Limitations-(lack of equipment, weather restraints, etc.). 88-Not Attempted due to Medical Conditions or Safety Concerns. ADL PLOF Comments Pt. states that she is typically independent with daily tasks. Self Care: Independent (per pt.) Functional Cognition: Unknown DME/Equipment: Bath Chair, Shower DME/Equipment Comments cane OT Current Status Subjective No pain reported. Appearance Pt. in bed. Alert and oriented. Agrees to work with OT. Mental Status/Objective Patient Orientation: Person, Place, Time, Situation Current Hand Dominance: Right Upper Extremity ROM Limited in bilateral shoulders. More in right than left. ADL-Treatment Eating (QC): 6 (Although pt reports not having much of appetite.) Lower Body Dressing (QC): 4 (Per clinical judgement) On/Off Footwear (QC): 6 (Pt. demonstrates independence donning/doffing slipper socks both sitting EOB and supine in bed.) Other Treatments Pt. transfers supine-sit with Mod I. She is able to stand at side of bed with SBA using walker. Pt. demonstrates no LOB while standing approximately 2-3 minutes EOB. Pt. takes steps toward HOB and then sits back on bed. Lays back on bed and is able to transfer sit-supine independently. All needs met at bed level. Pt. tolerated treatment well. Education OT Patient Education: Correct positioning, Modified ADL techniques, Progress toward Goal/Update tx plan, Purpose of tx/functional activities, Reviewed precautions, Rehab process, Transfer techniques Teaching Recipient: Patient Teaching Methods: Demonstration, Discussion Response to Teaching: Verbalize Understanding, Return Demonstration OT Parachute Accessories Attacher Goals Parachute Accessories Attacher Goals Time Frame: Nov 29, 2020 Eating (QC): 6 Oral Hygiene (QC): 6 Toileting Hygiene (QC): 6 Shower/Bathe Self (QC): 4 Upper Body Dressing (QC): 6 Lower Body Dressing (QC): 6 On/Off Footwear (QC): 6 Additional Goals: 1-Demonstrate ADL Tasks, 2-Verbalize Understanding, 3- ImproveStrength/[place]unter 1=Demonstrate adherence to instructed precautions during ADL tasks. 2=Patient will verbalize/demonstrate understanding of assistive devices/modifications for ADL. 3=Patient will improve strength/tolerance for activity to enable patient to perform ADL's. OT Education/Plan Problem List/Assessment Assessment: Decreased Activ Tolerance, Decreased UE Strength, Impaired I ADL's, Impaired Self-Care Skills, Restricted Funct UE ROM Discharge Recommendations Plan/Recommendations: Continue POC Therapy Discharge Recommendati: Home & Family Treatment Plan/Plan of Care Treatment,Training & Education: Yes Patient would benefit from OT for education, treatment and training to promote independence in ADL's, mobility, safety and/or upper extremity function for ADL's. Plan of Care: ADL Retraining, Functional Mobility, UE Funct Exercise/Act Treatment Duration: Nov 29, 2020 Frequency: 5 times per week Estimated Hrs Per Day: .25 hour per day Agreement: Yes Rehab Potential: Good Time/GCodes Start Time: 12:10 Stop Time: 12:20 Total Time Billed (hr/min): 10 Billed Treatment Time 1, LISSY GRAHAM OT November 15, 2020 14:51
[2020-11-15] MEDS: POTASSIUM CHLORIDE INJ 20 MEQ in D5 LR IV SOLUTION 1,000 ML IV SCH (15:14)
[2020-11-15 15:44] VITALS: BP 126/75
[2020-11-15 19:35] VITALS: BP 178/82
[2020-11-15] MEDS: SIMvastatin 10 MG (ZOCOR) TAB PO SCH (20:23)
[2020-11-16] VITALS (7 sets, daily range): BP systolic 123–189; BP diastolic 66–85
[2020-11-16] MEDS: POTASSIUM CHLORIDE INJ 20 MEQ in D5 LR IV SOLUTION 1,000 ML IV SCH ×4 (02:25→23:52)
[2020-11-16 05:46] LABS: BASOPHILS # (AUTO) 0.1 10^3/uL (0.0-0.1); BASOPHILS % (AUTO) 1 % (0-10); EOSINOPHILS # (AUTO) 0.2 10^3/uL (0.0-0.3); EOSINOPHILS % (AUTO) 3 % (0-10); HEMATOCRIT 37 % (35-52); HEMOGLOBIN 11.8 g/dL (11.5-16.0); LYMPHOCYTES # (AUTO) 1.6 10^3/uL (1.0-4.0); LYMPHOCYTES % (AUTO) 25 % (12-44); MEAN CORPUSCULAR HEMOGLOBIN 26 pg (25-34); MEAN CORPUSCULAR HGB CONC 32 g/dL (32-36); MEAN CORPUSCULAR VOLUME 81 fL (80-99); MEAN PLATELET VOLUME 9.5 fL (9.0-12.2); MONOCYTES # (AUTO) 0.8 10^3/uL (0.0-1.0); MONOCYTES % (AUTO) 12 % (0-12); NEUTROPHILS # (AUTO) 3.9 10^3/uL (1.8-7.8); NEUTROPHILS % (AUTO) 59 % (42-75); PLATELET COUNT 241 10^3/uL (130-400); WHITE BLOOD COUNT 6.5 10^3/uL (4.3-11.0)
[2020-11-16 05:56] LABS: ALBUMIN 3.6 GM/DL (3.2-4.5); CHLORIDE 104 MMOL/L (98-107); POTASSIUM 4.1 MMOL/L (3.6-5.0); SODIUM 139 MMOL/L (135-145)
[2020-11-16 05:57] LABS: CALCIUM 9.6 MG/DL (8.5-10.1)
[2020-11-16 05:59] LABS: GLUCOSE 124 MG/DL (70-105); TOTAL PROTEIN 6.3 GM/DL (6.4-8.2)
[2020-11-16 06:00] LABS: BILIRUBIN,TOTAL 0.4 MG/DL (0.1-1.0); CARBON DIOXIDE 27 MMOL/L (21-32)
[2020-11-16] MEDS: ONDANSETRON 4 MG/2 ML (SDV) Z0FRAN IVP PRN (06:00)
[2020-11-16 06:02] LABS: ALKALINE PHOSPHATASE 60 U/L (40-136); CREATININE SERUM 0.75 MG/DL (0.60-1.30); GFR ESTIMATED > 60
[2020-11-16 06:03] LABS: BUN/CREATININE RATIO 3
[2020-11-16 06:05] LABS: ALANINE AMINOTRANSFERASE 11 U/L (0-55)
[2020-11-16] MEDS: PANTOPRAZOLE 40 MG (PROTONIX) VIAL IV SCH ×2 (08:09→19:54)
[2020-11-16] MEDS: SINEMET 10/100 (CARBIDOPA/LEVADOPA) TAB PO SCH ×3 (08:09→19:55)
[2020-11-16] MEDS: ATENOLOL 50 MG (TENORMIN) TAB PO SCH ×2 (08:09→19:55)
[2020-11-16] MEDS: LOSARTAN 100 MG (COZAAR) TABLET PO SCH (08:09)
--- NOTE | 2020-11-16 08:20 | Progress Note - Surgery ---
Subjective Date Seen by a Provider: November 15, 2020 Time Seen by a Provider: 12:56 Subjective/Events-last exam This is a late entry note, saw pt yesterday....just now putting note in. Pt seen and examined, no new complaints. She was still having some nausea and did not eat much of her breakfast or lunch. Pain was minimal. Review of Systems General: Fatigue Pulmonary: No Dyspnea, No Cough Cardiovascular: No: Chest Pain, Palpitations Gastrointestinal: Nausea, Vomiting, Abdominal Pain Objective Exam Vital Signs Date Time Temp Pulse Resp B/P (MAP) Pulse Ox O2 Delivery O2 Flow Rate FiO2 11/16/20 07:49 36.5 66 20 171/84 (113) 100 Room Air 11/16/20 04:17 36.4 61 16 189/81 (117) 100 Room Air 11/16/20 00:00 36.3 65 18 182/80 (114) 99 Room Air 11/15/20 20:25 Room Air 11/15/20 19:35 36.4 63 20 178/82 (114) 99 Room Air 11/15/20 15:44 36.0 61 18 126/75 (92) 99 Room Air 11/15/20 11:00 37.2 66 16 188/96 (126) 98 Room Air I & O 11/16/20 07:00 Intake Total 1915 ml Balance 1915 ml Capillary Refill : Less Than 3 Seconds General Appearance: No Apparent Distress, Chronically ill Respiratory: Lungs Clear, No Accessory Muscle Use, No Respiratory Distress Cardiovascular: Regular Rate, Rhythm, No Murmur Gastrointestinal: soft, no organomegaly, tenderness (diffusely, but more epigastric and RUQ) Extremity: No Calf Tenderness, No Pedal Edema Neurologic/Psychiatric: Alert, Oriented x3, Disoriented Results Lab Laboratory Tests 11/16/20 05:35: White Blood Count 6.5, Red Blood Count 4.53, Hemoglobin 11.8, Hematocrit 37, Mean Corpuscular Volume 81, Mean Corpuscular Hemoglobin 26, Mean Corpuscular Hemoglobin Concent 32, Red Cell Distribution Width 16.9H, Platelet Count 241, Mean Platelet Volume 9.5, Immature Granulocyte % (Auto) 0, Neutrophils (%) (Auto) 59, Lymphocytes (%) (Auto) 25, Monocytes (%) (Auto) 12, Eosinophils (%) (Auto) 3, Basophils (%) (Auto) 1, Neutrophils # (Auto) 3.9, Lymphocytes # (Auto) 1.6, Monocytes # (Auto) 0.8, Eosinophils # (Auto) 0.2, Basophils # (Auto) 0.1, Immature Granulocyte # (Auto) 0.0, Sodium Level 139, Potassium Level 4.1, [place] Level 104, Carbon Dioxide Level 27, Anion Gap 8, Blood Urea Nitrogen < 2L , Creatinine 0.75, Estimat Glomerular Filtration Rate > 60, BUN/Creatinine Ratio 3, Glucose Level 124H, Calcium Level 9.6, Corrected Calcium 9.9, Total Bilirubin 0.4, Aspartate Amino Transf (AST/SGOT) 18, Alanine Aminotransferase (ALT/SGPT) 11, Alkaline Phosphatase 60, Total Protein 6.3L, Albumin 3.6 Microbiology 11/13/20 MRSA Screen - Final, Complete MRSA not isolated Assessment/Plan Assessment/Plan Assessment/Plan Mass at Hepatic Flexure - confirmed on colonoscopy and bx done Anemia probably secondary to mass HTN Dementia Colonoscopy done, await biopsy results. Again talked to pt regarding colonoscopy findings; will wait to make next decision based on pathology. Clinical Quality Measures DVT/VTE Risk/Contraindication: Contraindications-Pharm: Other *list below* Other: VANE Salvador DO November 16, 2020 08:20
--- NOTE | 2020-11-16 09:25 | Progress Note - Hospitalist ---
Subjective HPI/CC On Admission Date Seen by Provider: November 16, 2020 Time Seen by Provider: 09:30 Subjective/Events-last exam Pt doing really well today Still nauseated Not eating and drinking too much Family at the bedside Dr. Lemons will have family conversation Labs look good Pt up in a chair Previously was on a one-on-one because of confusion Review of Systems General: Fatigue Gastrointestinal: Nausea, Vomiting, Abdominal Pain Neurological: Confusion Objective Exam Vital Signs Vital Signs Date Time Temp Pulse Resp B/P (MAP) Pulse Ox O2 Delivery O2 Flow Rate FiO2 11/17/20 04:42 36.6 57 20 174/82 (112) 97 Room Air 11/14/20 13:40 4 Capillary Refill : Less Than 3 Seconds General Appearance: No Apparent Distress, WD/WN, Chronically ill Respiratory: Lungs Clear Cardiovascular: Regular Rate, Rhythm Neurologic/Psychiatric: Alert, Oriented x3, Disoriented Results/Procedures Lab Laboratory Tests 11/16/20 05:35 Patient resulted labs reviewed. Assessment/Plan Assessment and Plan Assess & Plan/Chief Complaint Assessment: Hepatic flexure mass s/p biopsy during Colonoscopy 11/14/20 Dementia Anemia HTN Plan: Await biopsy Monitor hgb 11/15/20: Nausea control Biopsy pending Midline 11/16/20: Family discussion with Dr Lemons today Supportive care Clinical Quality Measures DVT/VTE Risk/Contraindication: Contraindications-Pharm: Other *list below* Other: SHAWNA Cagle DO November 16, 2020 09:25
--- NOTE | 2020-11-16 12:58 | Physical Therapy Daily Note ---
PT Daily Note-Current Subjective Pt agreeable. Pt denies pain. Pt seated in recliner with present. Mental Status Patient Orientation: Person Transfers SCALE: Activities may be completed with or without assistive devices. 3-Fguilewdqp-kuenopi completes the activity by him/herself with no assistance from a helper. 5-Set-up or Clean-up Assistance-helper sets up or cleans up; patient completes activity. [place] assists only prior to or following the activity. 4-Supervision or Touching Assistance-helper provides verbal cues and/or touching/steadying and/or contact guard assistance as patient completes activity. Assistance may be provided throughout the activity or intermittently. 3-Partial/Moderate Assistance-helper does LESS THAN HALF the effort. [place] lifts, holds or supports trunk or limbs, but provides less than half the effort. 2-Substantial/Maximal Assistance-helper does MORE THAN HALF the effort. [place] lifts or holds trunk or limbs and provides more than half the effort. 8-Vbyjpufmt-xafvwg does ALL the effort. Patient does none of the effort to complete the activity. Or, the assistance of 2 or more helpers is required for the patient to complete the activity. If activity was not attempted, code reason: 7-Patient Refused. 9-Not Applicable-not attempted and the patient did not perform the activity before the current illness, exacerbation or injury. 10-Not Attempted due to Environmental Limitations-(lack of equipment, weather restraints, etc.). 88-Not Attempted due to Medical Conditions or Safety Concerns. Mod (I) sit <->stand Exercises Seated Therapy Exercises: Ankle pumps, Long arc quads, Hip flexion, Hip abd/add Seated Reps: 20 Treatments Pt amb with FWW and f/u of IV pole x 160ft at slow but steady speed. Pt CGA throughout. Pt back to recliner with all needs met. Assessment Current Status: Good Progress Good participation, good balance throughout. Pt mod (I) with functional mobility. Pt resting with call light in reach and present in room post treatment. PT Plant Engineering Manager Goals Care Home Goals PT Plant Engineering Manager Goals Time Frame: November 25, 2020 Roll Left & Right (QC): 6 Sit to Lying (QC): 6 Lying-Sitting on Side/Bed(QC): 6 Sit to Stand (QC): 6 Chair/Iut-sb-Qmeig Xfer(QC): 6 Toilet Transfer (QC): 6 Does the Patient Walk: Yes Walk 10 feet (QC): 6 Walk 50ft with 2 Turns (QC): 6 Walk 150 ft (QC): 6 PT Plan Treatment/Plan Treatment Plan: Continue Plan of Care Treatment Plan: Education, Functional Activity [place], Functional Strength, Gait, Safety, Therapeutic Exercise, Transfers Treatment Duration: November 25, 2020 Frequency: 6 times per week Estimated Hrs Per Day: .25 hour per day Patient and/or Family Agrees t: Yes Time/GCodes Time In: 1050 Time Out: 1110 Total Billed Treatment Time: 20 Total Billed Treatment 1, ther ex 5', gait 15' RAMOS LILLY CPTA November 16, 2020 12:58
--- NOTE | 2020-11-16 13:17 | Occupational Ther Daily Note ---
OT Current Status-Daily Note Subjective Pt alert, sitting in recliner. Pt oriented to name. Pt agrees to therapy. Mental Status/Objective Patient Orientation: Person Attachments: IV ADL-Treatment Therapy Code Descriptions/Definitions Functional [place] Measure: 0=Not Assessed/NA 4=Minimal Assistance 1=Total Assistance 5=Supervision or Setup 2=Maximal Assistance 6=Modified [place] 3=Moderate Assistance 7=Complete IndependenceSCALE: Activities may be completed with or without assistive devices. 7-Rlaqvumwrf-aevsice completes the activity by him/herself with no assistance from a helper. 5-Set-up or Clean-up Assistance-helper sets up or cleans up; patient completes activity. [place] assists only prior to or following the activity. 4-Supervision or Touching Assistance-helper provides verbal cues and/or touching/steadying and/or contact guard assistance as patient completes activity. Assistance may be provided throughout the activity or intermittently. 3-Partial/Moderate Assistance-helper does LESS THAN HALF the effort. [place] lifts, holds or supports trunk or limbs, but provides less than half the effort. 2-Substantial/Maximal Assistance-helper does MORE THAN HALF the effort. [place] lifts or holds trunk or limbs and provides more than half the effort. 0-Eeycrfyde-irzysp does ALL the effort. Patient does none of the effort to complete the activity. Or, the assistance of 2 or more helpers is required for the patient to complete the activity. If activity was not attempted, code reason: 7-Patient Refused. 9-Not Applicable-not attempted and the patient did not perform the activity before the current illness, exacerbation or injury. 10-Not Attempted due to Environmental Limitations-(lack of equipment, weather restraints, etc.). 88-Not Attempted due to Medical Conditions or Safety Concerns. Other Treatment Pt adamantly declined shower. Pt completed B UE medium resistance theraband exercises to increase strength for daily functional tasks. Pt tolerated horizontal shldr abd/add and shldr abd/add exercises, 2 sets 10 reps. Pt f atigued after 2 sets of each stating that R shldr was not very good. After therapy, pt sitting in recliner with call light/phone in reach. All needs met in room. OT Medical Billing Service Goals [facility] Goals Time Frame: Nov 29, 2020 Eating (QC): 6 Oral Hygiene (QC): 6 Toileting Hygiene (QC): 6 Shower/Bathe Self (QC): 4 Upper Body Dressing (QC): 6 Lower Body Dressing (QC): 6 On/Off Footwear (QC): 6 Additional Goals: 1-Demonstrate ADL Tasks, 2-Verbalize Understanding, 3- ImproveStrength/[place]unter 1=Demonstrate adherence to instructed precautions during ADL tasks. 2=Patient will verbalize/demonstrate understanding of assistive devices/modifications for ADL. 3=Patient will improve strength/tolerance for activity to enable patient to perform ADL's. OT Education/Plan Problem List/Assessment Assessment: Decreased Safety Aware, Decreased UE Strength Discharge Recommendations Plan/Recommendations: Continue POC Treatment Plan/Plan of Care Patient would benefit from OT for education, treatment and training to promote independence in ADL's, mobility, safety and/or upper extremity function for A DL's. Plan of Care: ADL Retraining, Functional Mobility, UE Funct Exercise/Act Treatment Duration: Nov 29, 2020 Frequency: 5 times per week Estimated Hrs Per Day: .25 hour per day Agreement: Yes Rehab Potential: Good Time/GCodes Start Time: 13:00 Stop Time: 13:11 Total Time Billed (hr/min): 11 Billed Treatment Time 1 visit-EX 1 (11 min) MISA BRAUN November 16, 2020 13:17
[2020-11-16] MEDS ORDERED: LACTATED RINGERS 1,000 ML IV PRN (14:45)
--- NOTE | 2020-11-16 15:37 | Progress Note - Surgery ---
Subjective Time Seen by a Provider: 13:49 Subjective/Events-last exam Pt seen and examined, sitting up in chair in no distress. Complains of diarrhea. Review of Systems General: Fatigue Pulmonary: No Dyspnea, No Cough Cardiovascular: No: Chest Pain, Palpitations Gastrointestinal: Abdominal Pain, Diarrhea; No: Nausea, Vomiting Objective Exam Vital Signs Date Time Temp Pulse Resp B/P (MAP) Pulse Ox O2 Delivery O2 Flow Rate FiO2 11/16/20 15:05 36.2 69 18 150/80 (103) 99 Room Air 11/16/20 11:50 36.2 69 20 155/85 (108) 100 Room Air 11/16/20 08:00 100 Room Air 11/16/20 07:49 36.5 66 20 171/84 (113) 100 Room Air 11/16/20 04:17 36.4 61 16 189/81 (117) 100 Room Air 11/16/20 00:00 36.3 65 18 182/80 (114) 99 Room Air 11/15/20 20:25 Room Air 11/15/20 19:35 36.4 63 20 178/82 (114) 99 Room Air 11/15/20 15:44 36.0 61 18 126/75 (92) 99 Room Air I & O 11/16/20 07:00 Intake Total 1915 ml Balance 1915 ml Capillary Refill : Less Than 3 Seconds General Appearance: No Apparent Distress, Chronically ill Respiratory: Lungs Clear, No Accessory Muscle Use, No Respiratory Distress Cardiovascular: Regular Rate, Rhythm, No Murmur Gastrointestinal: soft, no organomegaly, tenderness (diffusely, but more epigastric and RUQ) Extremity: No Calf Tenderness, No Pedal Edema Neurologic/Psychiatric: Alert, Oriented x3, Disoriented Results Lab Laboratory Tests 11/16/20 05:35: White Blood Count 6.5, Red Blood Count 4.53, Hemoglobin 11.8, Hematocrit 37, Mean Corpuscular Volume 81, Mean Corpuscular Hemoglobin 26, Mean Corpuscular Hemoglobin Concent 32, Red Cell Distribution Width 16.9H, Platelet Count 241, Mean Platelet Volume 9.5, Immature Granulocyte % (Auto) 0, Neutrophils (%) (Auto) 59, Lymphocytes (%) (Auto) 25, Monocytes (%) (Auto) 12, Eosinophils (%) (Auto) 3, Basophils (%) (Auto) 1, Neutrophils # (Auto) 3.9, Lymphocytes # (Auto) 1.6, Monocytes # (Auto) 0.8, Eosinophils # (Auto) 0.2, Basophils # (Auto) 0.1, Immature Granulocyte # (Auto) 0.0, Sodium Level 139, Potassium Level 4.1, Chloride Level 104, Carbon Dioxide Level 27, Anion Gap 8, Blood Urea Nitrogen < 2L, Creatinine 0.75, Estimat Glomerular Filtration Rate > 60, BUN/Creatinine Ratio 3, Glucose Level 124H, Calcium Level 9.6, Corrected Calcium 9.9, Total Bilirubin 0.4, Aspartate Amino Transf (AST/SGOT) 18, Alanine Aminotransferase (ALT/SGPT) 11, Alkaline Phosphatase 60, Total Protein 6.3L, Albumin 3.6 Microbiology 11/13/20 MRSA Screen - Final, Complete MRSA not isolated Assessment/Plan Assessment/Plan Assessment/Plan Colon Cancer - unfortunately Pathology came back as invasive adenocarcinoma Anemia probably secondary to mass HTN Dementia I went over pathology findings with pt, her and daughter. We went over options and they all wanted to go ahead with surgery. Plan for Laparoscopic hand assisted Right hemicolectomy; discussed risks and complications not limited to pain, bleeding, infection scar, damage to bowel and need for further procedure. The main thing I was concerned with was the cancer causing an obstruction; there was basically near obstruction seen during colonoscopy. It may be the cause of her diarrhea, but I told them that diarrhea might not go away. All questions answered to there satisfaction. Clinical Quality Measures DVT/VTE Risk/Contraindication: Contraindications-Pharm: Other *list below* Other: VANE Salvador DO November 16, 2020 15:37
[2020-11-16] MEDS: SIMvastatin 10 MG (ZOCOR) TAB PO SCH (19:57)
[2020-11-17] VITALS (12 sets, daily range): BP systolic 116–174; BP diastolic 56–83
[2020-11-17 05:52] LABS: BASOPHILS # (AUTO) 0.1 10^3/uL (0.0-0.1); BASOPHILS % (AUTO) 1 % (0-10); EOSINOPHILS # (AUTO) 0.2 10^3/uL (0.0-0.3); EOSINOPHILS % (AUTO) 3 % (0-10); HEMATOCRIT 38 % (35-52); HEMOGLOBIN 11.7 g/dL (11.5-16.0); LYMPHOCYTES # (AUTO) 1.6 10^3/uL (1.0-4.0); LYMPHOCYTES % (AUTO) 26 % (12-44); MEAN CORPUSCULAR HEMOGLOBIN 26 pg (25-34); MEAN CORPUSCULAR HGB CONC 31 g/dL (32-36); MEAN CORPUSCULAR VOLUME 85 fL (80-99); MEAN PLATELET VOLUME 9.5 fL (9.0-12.2); MONOCYTES # (AUTO) 0.8 10^3/uL (0.0-1.0); MONOCYTES % (AUTO) 14 % (0-12); NEUTROPHILS # (AUTO) 3.3 10^3/uL (1.8-7.8); NEUTROPHILS % (AUTO) 55 % (42-75); PLATELET COUNT 208 10^3/uL (130-400)
[2020-11-17 06:06] LABS: ALBUMIN 3.3 GM/DL (3.2-4.5)
[2020-11-17 06:07] LABS: CHLORIDE 110 MMOL/L (98-107); POTASSIUM 3.9 MMOL/L (3.6-5.0); SODIUM 144 MMOL/L (135-145)
[2020-11-17 06:08] LABS: CALCIUM 9.2 MG/DL (8.5-10.1)
[2020-11-17 06:09] LABS: GLUCOSE 101 MG/DL (70-105); TOTAL PROTEIN 5.8 GM/DL (6.4-8.2)
[2020-11-17 06:10] LABS: CARBON DIOXIDE 26 MMOL/L (21-32)
[2020-11-17 06:11] LABS: BILIRUBIN,TOTAL 0.3 MG/DL (0.1-1.0)
[2020-11-17 06:13] LABS: ALKALINE PHOSPHATASE 51 U/L (40-136); CREATININE SERUM 0.72 MG/DL (0.60-1.30); GFR ESTIMATED > 60
[2020-11-17 06:14] LABS: BUN/CREATININE RATIO 3
[2020-11-17 06:16] LABS: ALANINE AMINOTRANSFERASE 7 U/L (0-55)
[2020-11-17] MEDS: PANTOPRAZOLE 40 MG (PROTONIX) VIAL IV SCH ×2 (08:30→20:44)
[2020-11-17] MEDS: LOSARTAN 100 MG (COZAAR) TABLET PO SCH (09:30)
[2020-11-17] MEDS: SINEMET 10/100 (CARBIDOPA/LEVADOPA) TAB PO SCH ×3 (09:30→20:44)
[2020-11-17] MEDS: ATENOLOL 50 MG (TENORMIN) TAB PO SCH ×2 (09:30→20:44)
[2020-11-17] MEDS ORDERED: ROCURONIUM 10 MG/ML 5 ML SYRINGE IV ONE (10:08)
[2020-11-17] MEDS ORDERED: ONDANSETRON 4 MG/2 ML (SDV) Z0FRAN ONE (10:08)
[2020-11-17] MEDS ORDERED: LIDOCAINE PF 2% 5 ML (XYLOCAINE) VIAL ONE (10:08)
[2020-11-17] MEDS ORDERED: SUCCINYLCHOLINE INJ 100 MG/5 ML SYR/VIAL ONE (10:08)
[2020-11-17] MEDS ORDERED: fentaNYL INJ 100 MCG/2 ML AMP ONE (10:08)
[2020-11-17] MEDS ORDERED: MIDAZOLAM 2 MG/2 ML (VERSED) VIAL ONE (10:08)
[2020-11-17] MEDS ORDERED: proPOfol 200 MG/20 ML (DIPRIVAN) VIAL IV ONE (10:08)
[2020-11-17] MEDS ORDERED: LIDOCAINE/EPI 1%-1:100,000 (XYLOCAINE) 20ML ONE (10:14)
--- NOTE | 2020-11-17 10:19 | Physical Therapy Progress Note ---
Therapy Progress Note Patient to have surgery on this date. Family declined PT intervention on this date. Will resume in a.m. 1 ref ([id number]) MYRTLE JAMES PT November 17, 2020 10:19
[2020-11-17] MEDS ORDERED: ceFAZolin INJECTION 1,000 MG ONE (10:20)
[2020-11-17] MEDS: LACTATED RINGERS 1,000 ML IV PRN ×2 (10:26→11:50)
[2020-11-17] MEDS ORDERED: metroNIDAZOLE 500MG/100ML IVPB 100 ML ONE (10:48)
--- NOTE | 2020-11-17 11:13 | Occ Therapy Progress Note ---
Therapy Progress Note Per PT, pt having procedure today and has been medicated. Family declined therapy at this time. Will resume OT in am. MISA BRAUN November 17, 2020 11:13
[2020-11-17] MEDS ORDERED: GLYCOPYRROLATE 0.2 MG/ML (ROBINUL) 2 ML VIAL ONE (12:08)
[2020-11-17] MEDS ORDERED: NEOSTIGMINE 3 MG/3 ML VIAL ONE (12:08)
[2020-11-17] MEDS ORDERED: SEVOFLURANE (ULTANE) 15 ML INHAL SOLN ONE (12:10)
[2020-11-17] MEDS ORDERED: ONDANSETRON 4 MG/2 ML (SDV) Z0FRAN IVP PRN (12:45)
[2020-11-17] MEDS ORDERED: PROMETHAZINE INJ 25 MG/ML (PHENERGAN) AMP IVP ONE (12:45)
[2020-11-17] MEDS ORDERED: morphine INJ 10 MG/ML 1ML (SYR OR VIAL) IVP ONE (12:45)
[2020-11-17] MEDS ORDERED: MEPERIDINE (DEMEROL) INJ 50 MG/ML IVP ONE (12:45)
[2020-11-17] MEDS: POTASSIUM CHLORIDE INJ 20 MEQ in D5 LR IV SOLUTION 1,000 ML IV SCH (16:38)
[2020-11-17] MEDS: ACETAMINOPHEN 500 MG TAB (TYLENOL) PO SCH (17:14)
[2020-11-17] MEDS: KETOROLAC 30 MG/ML VIAL IVP SCH ×2 (17:15→22:34)
[2020-11-17] MEDS: SIMvastatin 10 MG (ZOCOR) TAB PO SCH (20:44)
[2020-11-18 00:45] VITALS: BP 124/72
[2020-11-18] MEDS: ACETAMINOPHEN 500 MG TAB (TYLENOL) PO SCH ×4 (01:14→23:19)
[2020-11-18] MEDS: POTASSIUM CHLORIDE INJ 20 MEQ in D5 LR IV SOLUTION 1,000 ML IV SCH ×2 (01:55→13:20)
[2020-11-18 03:47] VITALS: BP 136/80
[2020-11-18] MEDS: KETOROLAC 30 MG/ML VIAL IVP SCH ×4 (05:09→22:20)
--- NOTE | 2020-11-18 05:42 | Progress Note - Hospitalist ---
Subjective HPI/CC On Admission Date Seen by Provider: November 18, 2020 Time Seen by Provider: 10:30 Subjective/Events-last exam Pt doing really well Post-operatively she has had no problems Scott was discontinued DC is planned in the morning Home health has already been set up by Dr. Lemons Review of Systems General: Fatigue Gastrointestinal: Abdominal Pain Neurological: Confusion Objective Exam Vital Signs Vital Signs Date Time Temp Pulse Resp B/P (MAP) Pulse Ox O2 Delivery O2 Flow Rate FiO2 11/18/20 23:26 36.2 71 16 144/78 (100) 99 Room Air 11/17/20 13:10 3 Capillary Refill : Less Than 3 SecondsLess Than 3 Seconds General Appearance: No Apparent Distress, WD/WN, Chronically ill Respiratory: Lungs Clear Cardiovascular: Regular Rate, Rhythm Neurologic/Psychiatric: Alert, Oriented x3, Disoriented Results/Procedures Lab Laboratory Tests 11/18/20 05:49 Patient resulted labs reviewed. Assessment/Plan Assessment and Plan Assess & Plan/Chief Complaint Assessment: Hepatic flexure mass s/p biopsy during Colonoscopy 11/14/20 Dementia Anemia HTN Plan: Await biopsy Monitor hgb 11/15/20: Nausea control Biopsy pending Midline 11/16/20: Family discussion with Dr Lemons today Supportive care 11/17/20: DC tomorrow set up Clinical Quality Measures DVT/VTE Risk/Contraindication: Contraindications-Pharm: Other *list below* Other: SHAWNA Cagle DO November 18, 2020 05:42
[2020-11-18 06:35] LABS: BASOPHILS # (AUTO) 0.1 10^3/uL (0.0-0.1); BASOPHILS % (AUTO) 1 % (0-10); EOSINOPHILS # (AUTO) 0.1 10^3/uL (0.0-0.3); EOSINOPHILS % (AUTO) 1 % (0-10); HEMATOCRIT 32 % (35-52); HEMOGLOBIN 9.9 g/dL (11.5-16.0); LYMPHOCYTES # (AUTO) 1.2 10^3/uL (1.0-4.0); LYMPHOCYTES % (AUTO) 13 % (12-44); MEAN CORPUSCULAR HEMOGLOBIN 26 pg (25-34); MEAN CORPUSCULAR HGB CONC 31 g/dL (32-36); MEAN CORPUSCULAR VOLUME 82 fL (80-99); MEAN PLATELET VOLUME 9.9 fL (9.0-12.2); MONOCYTES # (AUTO) 0.8 10^3/uL (0.0-1.0); MONOCYTES % (AUTO) 9 % (0-12); NEUTROPHILS # (AUTO) 6.7 10^3/uL (1.8-7.8); NEUTROPHILS % (AUTO) 76 % (42-75); PLATELET COUNT 201 10^3/uL (130-400); WHITE BLOOD COUNT 8.8 10^3/uL (4.3-11.0)
[2020-11-18 06:55] LABS: ALBUMIN 2.7 GM/DL (3.2-4.5)
[2020-11-18 06:56] LABS: CHLORIDE 104 MMOL/L (98-107); POTASSIUM 4.1 MMOL/L (3.6-5.0); SODIUM 139 MMOL/L (135-145)
[2020-11-18 06:57] LABS: CALCIUM 8.3 MG/DL (8.5-10.1)
[2020-11-18 06:58] LABS: GLUCOSE 121 MG/DL (70-105); TOTAL PROTEIN 4.6 GM/DL (6.4-8.2)
[2020-11-18 06:59] LABS: CARBON DIOXIDE 29 MMOL/L (21-32)
[2020-11-18 07:00] LABS: BILIRUBIN,TOTAL 0.3 MG/DL (0.1-1.0)
[2020-11-18 07:01] LABS: ALKALINE PHOSPHATASE 45 U/L (40-136)
[2020-11-18 07:02] LABS: CREATININE SERUM 0.73 MG/DL (0.60-1.30); GFR ESTIMATED > 60
[2020-11-18 07:03] LABS: BUN/CREATININE RATIO 5
[2020-11-18 07:04] LABS: ALANINE AMINOTRANSFERASE 6 U/L (0-55)
[2020-11-18 08:00] VITALS: BP 125/77
--- NOTE | 2020-11-18 09:17 | Progress Note-Post Operative ---
Post-Operative Progess Note Surgeon (s)/Charting Clerk (s) Surgeon VANE JURADO DO Charting Clerk: none Pre-Operative Diagnosis Right colon Cancer Post-Operative Diagnosis same pending pathology Procedure & Operative Findings Date of Procedure 11/17/20 Procedure Performed/Findings Lap hand assisted right hemicolectomy Anesthesia Type GET Estimated Blood Loss Estimated blood loss (mL): less than 100ml Specimens/Packing Specimens Removed portion of transverse colon, asc colon, cecum, portion of TI VANE JURADO DO November 18, 2020 09:17
--- NOTE | 2020-11-18 09:20 | Progress Note - Surgery ---
Subjective Time Seen by a Provider: 08:58 Subjective/Events-last exam Pt seen and examined, looks comfortable and states she is doing ok. Pain is controlled. Review of Systems Pulmonary: No Dyspnea, No Cough Cardiovascular: No: Chest Pain, Palpitations Gastrointestinal: Abdominal Pain; No: Nausea, Vomiting Objective Exam Vital Signs Date Time Temp Pulse Resp B/P (MAP) Pulse Ox O2 Delivery O2 Flow Rate FiO2 11/18/20 08:00 36.4 70 20 125/77 (93) 100 Room Air 11/18/20 03:47 36.5 64 16 136/80 (98) 96 Room Air 11/18/20 00:45 37.0 84 16 124/72 (89) 97 Room Air 11/17/20 20:54 Room Air 11/17/20 19:37 35.6 58 17 161/71 (101) 98 Room Air 11/17/20 16:00 35.3 56 16 167/65 (99) 96 Room Air 11/17/20 13:29 35.3 51 12 128/70 (89) 95 Room Air 11/17/20 13:20 Room Air 11/17/20 13:20 36.3 18 116/77 (90) 98 Room Air 11/17/20 13:10 18 120/69 (86) 98 Room Air 11/17/20 13:10 OxyMask 3 11/17/20 13:00 14 131/56 (81) 96 OxyMask 2 11/17/20 12:55 OxyMask 3 11/17/20 12:50 18 145/75 (98) 100 OxyMask 3 11/17/20 12:40 18 132/73 (92) 100 OxyMask 5 11/17/20 12:40 OxyMask 10 11/17/20 12:30 18 145/73 (97) 100 OxyMask 8 11/17/20 12:25 OxyMask 10 11/17/20 12:25 36.4 20 141/78 (99) 100 OxyMask 10 I & O 11/18/20 07:00 Intake Total 1420 ml Output Total 1350 ml Balance 70 ml Capillary Refill : Less Than 3 SecondsLess Than 3 Seconds General Appearance: No Apparent Distress, Chronically ill Respiratory: Lungs Clear, Normal Breath Sounds, No Accessory Muscle Use, No Respiratory Distress Cardiovascular: Regular Rate, Rhythm, No Murmur Gastrointestinal: soft, no organomegaly, tenderness (at midline incision, incisions are c/d/I) Extremity: No Calf Tenderness, No Pedal Edema Neurologic/Psychiatric: Alert, Disoriented Results Lab Laboratory Tests 11/18/20 05:49: White Blood Count 8.8, Red Blood Count 3.87, Hemoglobin 9.9L, Hematocrit 32L, Mean Corpuscular Volume 82, Mean Corpuscular Hemoglobin 26, Mean Corpuscular Hemoglobin Concent 31L, Red Cell Distribution Width 17.0H, Platelet Count 201, Mean Platelet Volume 9.9, Immature Granulocyte % (Auto) 1, Neutrophils (%) (Auto) 76H, Lymphocytes (%) (Auto) 13, Monocytes (%) (Auto) 9, Eosinophils (%) (Auto) 1, Basophils (%) (Auto) 1, Neutrophils # (Auto) 6.7, Lymphocytes # (Auto) 1.2, Monocytes # (Auto) 0.8, Eosinophils # (Auto) 0.1, Basophils # (Auto) 0.1, Immature Granulocyte # (Auto) 0.0, Sodium Level 139, Potassium Level 4.1, Chloride Level 104, Carbon Dioxide Level 29, Anion Gap 6, Blood Urea Nitrogen 4L , Creatinine 0.73, Estimat Glomerular Filtration Rate > 60, BUN/Creatinine Ratio 5, Glucose Level 121H, Calcium Level 8.3L, Corrected Calcium 9.3, Total Bilirubin 0.3, Aspartate Amino Transf (AST/SGOT) 13, Alanine Aminotransferase (ALT/SGPT) 6, Alkaline Phosphatase 45, Total Protein 4.6L, Albumin 2.7L Microbiology 11/13/20 MRSA Screen - Final, Complete MRSA not isolated Assessment/Plan Assessment/Plan Assessment/Plan S/P Laparoscopic Right hemicolectomy for Colon Cancer Anemia probably secondary to Colon CA HTN Dementia Pt is doing great today, will increase to soft diet, d/c angela. Pt told to amb ulate and use IS. Can go home once she is eating and pain controlled with oral meds. Clinical Quality Measures DVT/VTE Risk/Contraindication: Contraindications-Pharm: Other *list below* Other: VANE Salvador DO November 18, 2020 09:20
--- NOTE | 2020-11-18 09:22 | Discharge Inst-Surgical ---
Discharge Inst-Surgical Depart Medication/Instructions New, Converted or Re-Newed RX: Other Patient Instructions Follow up Appt: Make appointment for 1 week. [phone] Instructions: No lifting greater than 20 pounds. No strenuous activity. May shower in 24 hours, no tub bath or soaking. Use incentive spirometer at home as directed. No Smoking Skin/Wound Care: May remove bandages in am. You need to leave the william in place and come to the office to have them removed. Symptoms to Report: Appetite Changes, Extremity Discoloration, Numbness/Tingling, Swelling Increased, Bleeding Excessive, Eyesight Changes, Pain Increased, Urine Color Change, Constipation(Persistent), Fever over 101 degree F, Pain/Pressure in chest, Urinating Difficulty, Cough Up/Vomit Blood, Heart Beat Irreg/Pounding, Pain/Pressure in jaw, Cramps in feet or legs, Lightheadedness, Pain/Pressure in shoulder, Diarrhea(Persistent), Memory Changes Suddenly, Questions/Concerns, Weight gain consecutive days, Dizziness/Fainting, Nausea/Vomiting, Shortness of Breath, Weight gain over 2 pounds If questions or concerns contact your physician Or seek help at emergency department. Activity Activity as Tolerated: Yes Activity Instructions: Avoid Stress to Incision Driving Instructions: No Driving/Refer to Dr. Webster Discharge Diet: No Restrictions Diet After 24 Hours: Clear Liquid if Nauseous If Any Problems/Questions/Issu: Contact Your Physician, Go to Emergency Room Skin/Wound Care Infection Signs and Symptoms: Increased Redness, Foul Odor of Wound, Increased Drainage, Skin Itchy or Has a Rash, Increased Swelling, Temperature Above 101 F Bathing Instructions: Shower Stitches/Parsons/Dermabond Dis: Care of VANE Santana DO November 18, 2020 09:22
[2020-11-18] MEDS: SINEMET 10/100 (CARBIDOPA/LEVADOPA) TAB PO SCH ×3 (09:31→20:17)
[2020-11-18] MEDS: ATENOLOL 50 MG (TENORMIN) TAB PO SCH ×2 (09:31→20:17)
[2020-11-18] MEDS: PANTOPRAZOLE 40 MG (PROTONIX) VIAL IV SCH ×2 (09:31→20:17)
[2020-11-18] MEDS: LOSARTAN 100 MG (COZAAR) TABLET PO SCH (09:31)
--- NOTE | 2020-11-18 09:43 | D/C HH Face to Face Order ---
D/C Face to Face Orders Instructions for Patient Via [facility], Patient Instructions/FollowUp: Follow up in my office one week from date of discharge. Call to make an appointment [phone] Physician to follow Patient: Dr. Lemons Discharge Diet for Home: Regular Diet Patient Data-Allergies,Ht & Wt Patient Allergies: Coded Allergies: No Known Drug Allergies (Unverified , 07/28/19) Home Health Need/Face to Face Date of Face to Face: November 18, 2020 Clinical Findings: Generalized weakness and fatigue, Muscle weakness, Unsteady gait I have seen Pt [id number]: Yes Discharged To: Home Diagnosis/Conditions: S/P Colon Resection for Colon cancer Anemia HTN Dementia Weakness Patient is Homebound due to: Fransisca fall risk due to instabilty, Muscle weakness Homebound Status Due to the above stated illness, injury or surgical procedure (medical condition or diagnosis) and associated clinical findings, the patient is homeb ound because of his/her inability to leave home except with aid of a supportive device and/or person AND leaving the home requires a considerable and taxing effort or is medically contraindicated. Pt req the following assistanc: Aid of another person Home Health Nursing Orders Home Health Services Order: Nursing Services, Physical Therapy-Evaluate & Treat Home Health Infusion Therapy Line Start Date: November 15, 2020 Therapy Orders Therapy Orders: Physical Therapy Therapy Specific Orders: Gait training, Increase strength/endurance [facility] cert[facility] that this patient is under my care and that I, a nurse practitioner or a physician; a assistant director of public works working with me, had a face to face encounter that - meets the physician face to face encounter requirements with this patient as dated. VANE LEMONS DO November 18, 2020 09:43
--- NOTE | 2020-11-18 11:34 | Physical Therapy Daily Note ---
PT Daily Note-Current Subjective Patient agrees to PT. Family present. Mental Status Patient Orientation: Person Attachments: IV Transfers SCALE: Activities may be completed with or without assistive devices. 2-Idwtknpgst-sdlsich completes the activity by him/herself with no assistance from a helper. 5-Set-up or Clean-up Assistance-helper sets up or cleans up; patient completes activity. [place] assists only prior to or following the activity. 4-Supervision or Touching Assistance-helper provides verbal cues and/or touching/steadying and/or contact guard assistance as patient completes activity. Assistance may be provided throughout the activity or intermittently. 3-Partial/Moderate Assistance-helper does LESS THAN HALF the effort. [place] lifts, holds or supports trunk or limbs, but provides less than half the effort. 2-Substantial/Maximal Assistance-helper does MORE THAN HALF the effort. [place] lifts or holds trunk or limbs and provides more than half the effort. 9-Eqpyvrpjk-vvdnms does ALL the effort. Patient does none of the effort to complete the activity. Or, the assistance of 2 or more helpers is required for the patient to complete the activity. If activity was not attempted, code reason: 7-Patient Refused. 9-Not Applicable-not attempted and the patient did not perform the activity before the current illness, exacerbation or injury. 10-Not Attempted due to Environmental Limitations-(lack of equipment, weather restraints, etc.). 88-Not Attempted due to Medical Conditions or Safety Concerns. Sit to Stand (QC): 3 Gait Training Does the Patient Walk?: Yes Distance: 150' Walk 10 feet (QC): 3 Walk 50 ft with 2 Turns(QC): 3 Walk 150 ft (QC): 3 Gait Assistive Device: FWW very slow, with PT assist to advance FWW Assessment Patient tolerated treatment well and remains up in recliner with family present. PT to increase activity as tolerated by patient. PT Chcf Goals Chcf Goals PT Advertising Production Manager Goals Time Frame: November 25, 2020 Roll Left & Right (QC): 6 Sit to Lying (QC): 6 Lying-Sitting on Side/Bed(QC): 6 Sit to Stand (QC): 6 Chair/Zls-bo-Dqccm Xfer(QC): 6 Toilet Transfer (QC): 6 Does the Patient Walk: Yes Walk 10 feet (QC): 6 Walk 50ft with 2 Turns (QC): 6 Walk 150 ft (QC): 6 PT Plan Treatment/Plan Treatment Plan: Continue Plan of Care Treatment Plan: Education, Functional Activity Hunter, Functional Strength, Gait, Safety, Therapeutic Exercise, Transfers Treatment Duration: November 25, 2020 Frequency: 6 times per week Estimated Hrs Per Day: .25 hour per day Patient and/or Family Agrees t: Yes Time/GCodes Time In: 1055 Time Out: 1105 Total Billed Treatment Time: 10 Total Billed Treatment 1 visit GT 10 min MYRTLE JAMES PT November 18, 2020 11:34
[2020-11-18 12:00] VITALS: BP 129/74
--- NOTE | 2020-11-18 13:34 | OPERATIVE REPORT ---
DATE OF SERVICE: 11/17/2020 PREOPERATIVE DIAGNOSIS: Right colon cancer. POSTOPERATIVE DIAGNOSIS: Right colon cancer, pending pathology. PROCEDURE: Laparoscopic hand-assisted right hemicolectomy. SURGEON: Aristeo Lemons DO SKIRT TRIMMER: Tod Martinez DO. ANESTHESIA: General endotracheal tube. SPECIMEN: Portion of transverse colon, ascending colon, cecum and portion of terminal ileum. BLOOD LOSS: Less than 100 mL. FLUIDS: Per anesthesia. POSTOPERATIVE CONDITION: Stable. INDICATION FOR PROCEDURE: The patient is an 85-year-old female who had a near obstructing colon lesion thought to be at the hepatic flexure, needed to get this removed. FINDINGS: The patient had a colon cancer that was just distal to the hepatic flexure, removed and sent to pathology. PROCEDURE NOTE: After informed consent was obtained, the patient was brought to the operating room, placed on the operating table in supine position. She was sterilely prepped and draped in normal fashion. A midline incision was made starting about 3 or 4 cm above the umbilicus to just below the umbilicus. Made with a #15 blade, carried down through the skin and subcutaneous tissue, then deepened down to subcutaneous tissue with Bovie electrocautery down to the fascia. Fascia was incised with Bovie electrocautery, then bluntly entered the abdomen. Increased the incision. Noted some adhesions from probably previous hysterectomy. Omentum was stuck up to the abdominal wall. This was started to take down with Bovie electrocautery, could feel the mass in the colon, palpated the liver, did not really feel anything in the liver, could not pull the colon up. So at this point, elected to place a wound protector over the midline and then placed 5 mm trocar port subxiphoid and one in the right lower quadrant using local lidocaine, 11 blade for stab incision and VersaStep system, all done under direct visualization. Created pneumoperitoneum, could not get a good pneumoperitoneum through the 5 mm. So, switched this to 12 mm, able to just take out the inner trocar and then place the larger trocar through the mesh sheath, took down the omental adhesions with LigaSure and then using LigaSure as well as spatula Bovie cautery, took down the white line of Toldt, able to start bringing the right colon and transverse colon towards the midline. There were some adhesions to the liver. These were also taken down with Bovie electrocautery as well as LigaSure, continued to take these down, could identify the duodenum, stayed away from this and then identified terminal ileum, it was stuck down in the pelvis and used a spatula cautery to go through the mesentery to be able to pull this into the midline. Once we were able to get all this freed up and rotated towards the midline, then removed the Gelfoam GelPort and then brought all of the intestine up through the midline port, went about 6 cm distal to the mass and then went about 4 cm distal to the ileocecal valve. Used Endo-DELMAR over both of these sites, had made a defect in the mesentery with the Bovie electrocautery. Clamped, held for 30 seconds and fired and then took this portion of colon off going down to the retroperitoneum with LigaSure and then coming across the mesentery in a stepwise fashion, clamping, coagulating and transecting and in this fashion removing this portion of terminal ileum, cecum, ascending colon and portion of transverse colon, passed this off the table, then brought the transverse colon and the terminal ileum together, made defect along the tinea with a Bovie electrocautery and then a defect in the antimesenteric border of the terminal ileum and placed a DELMAR one part on either limb, clamped this together, thereby creating a ydsf-ju-gscm functional end-to-end anastomosis after we fired the DELMAR, used a 3-0 Vicryl to do a crotch stitch and then used another reload of the DELMAR to close this enterocolotomy, this closed nicely. We switched gloves. We irrigated, suctioned this out, obtained hemostasis using Bovie electrocautery. There was no bleeding during this case and then at this point elected to close the midline incision with #1 double stranded PDS suture running from superior portion to inferior portion, tying to itself, recreated pneumoperitoneum, looked around, midline incision looked good. There was no bleeding. Anastomosis looked good. At this point, then removed the two trocar ports, allowed the pneumoperitoneum to escape and then closed the trocar ports with william as well as closed the midline with william, irrigated the midline with normal saline and then closed with william. Area was cleaned and dried and dressings placed. The patient tolerated the procedure. She was transferred to recovery room in stable condition. Sponge, instrument and needle count correct at the end of the case. Dr. Martinez assisted on this case helping to make incisions, close incisions, identify anatomy and hold anatomy out of the way. Job ID: [id number] DocumentID: [id number] Dictated Date: 11/18/2020 09:17:16 Security Officers And Guards Date: 11/18/2020 13:34:04 Dictated By: DO ELLY SORIANO
--- NOTE | 2020-11-18 13:37 | Occupational Ther Daily Note ---
OT Current Status-Daily Note Subjective Pt asleep upon entry post lunch. Pt wakes easily. States no pain when sitting, agrees to tx. States she does not remember doing ther ex, agrees to complete with red theraband. States will probably d/c home tomorrow with no concerns upon d/c due to walk in shower/ sc and good supports from / sons at home. Mental Status/Objective Patient Orientation: Person, Place, Situation ADL-Treatment Therapy Code Descriptions/Definitions Functional [place] Measure: 0=Not Assessed/NA 4=Minimal Assistance 1=Total Assistance 5=Supervision or Setup 2=Maximal Assistance 6=Modified [place] 3=Moderate Assistance 7=Complete IndependenceSCALE: Activities may be completed with or without assistive devices. 5-Ssyhtbrmep-puqzmic completes the activity by him/herself with no assistance from a helper. 5-Set-up or Clean-up Assistance-helper sets up or cleans up; patient completes activity. Roy assists only prior to or following the activity. 4-Supervision or Touching Assistance-helper provides verbal cues and/or touching/steadying and/or contact guard assistance as patient completes activity. Assistance may be provided throughout the activity or intermittently. 3-Partial/Moderate Assistance-helper does LESS THAN HALF the effort. Roy lifts, holds or supports trunk or limbs, but provides less than half the effort. 2-Substantial/Maximal Assistance-helper does MORE THAN HALF the effort. Roy lifts or holds trunk or limbs and provides more than half the effort. 0-Ynmoppbyp-alroez does ALL the effort. Patient does none of the effort to complete the activity. Or, the assistance of 2 or more helpers is required for the patient to complete the activity. If activity was not attempted, code reason: 7-Patient Refused. 9-Not Applicable-not attempted and the patient did not perform the activity be fore the current illness, exacerbation or injury. 10-Not Attempted due to Environmental Limitations-(lack of equipment, weather restraints, etc.). 88-Not Attempted due to Medical Conditions or Safety Concerns. Eating (QC): 6 Oral Hygiene (QC): 7 Lower Body Dressing (QC): 7 On/Off Footwear: 7 Toileting Hygiene (QC): 7 Other Treatment Denies bathroom or LB dressing (states desires to try tomorrow, educated on use of AE and SBA from / son during stance). Pt agrees. Pt completes 15 reps of the following ex bilaterally: shoulder ext rotation, bicep curls, shoulder flexion (modified). Pt educated to complete at home 15 reps, 2-3x daily. Pt denies needs, call light in reach, all needs met. Education OT Patient Education: Correct positioning, Exercise program, Home exercise program, Modified ADL techniques, Use of adapted equipment Teaching Recipient: Patient Teaching Methods: Demonstration, Discussion Response to Teaching: Verbalize Understanding, Return Demonstration OT Intermediate Goals Printing Table Hand Goals Time Frame: Nov 29, 2020 Eating (QC): 6 Oral Hygiene (QC): 6 Toileting Hygiene (QC): 6 Shower/Bathe Self (QC): 4 Upper Body Dressing (QC): 6 Lower Body Dressing (QC): 6 On/Off Footwear (QC): 6 Additional Goals: 1-Demonstrate ADL Tasks, 2-Verbalize Understanding, 3- ImproveStrength/Hunter 1=Demonstrate adherence to instructed precautions during ADL tasks. 2=Patient will verbalize/demonstrate understanding of assistive devices/modifications for ADL. 3=Patient will improve strength/tolerance for activity to enable patient to perform ADL's. OT Education/Plan Problem List/Assessment Assessment: Decreased Activ Tolerance, Decreased UE Strength, Dependent Eid sfers, Impaired I ADL's, Impaired Self-Care Skills Discharge Recommendations Plan/Recommendations: Continue POC Therapy Discharge Recommendati: Home & Family, Post Acute OT Treatment Plan/Plan of Care Treatment,Training & Education: Yes Patient would benefit from OT for education, treatment and training to promote independence in ADL's, mobility, safety and/or upper extremity function for ADL's. Plan of Care: ADL Retraining, Functional Mobility, UE Funct Exercise/Act Treatment Duration: Nov 29, 2020 Frequency: 5 times per week Estimated Hrs Per Day: .25 hour per day Agreement: Yes Rehab Potential: Good Time/GCodes Start Time: 13:15 Stop Time: 13:33 Total Time Billed (hr/min): 18 Billed Treatment Time 1, EX (18) LEIDY CABRERA OTR November 18, 2020 13:37
--- NOTE | 2020-11-18 15:13 | Anesthesia-General Post-Op ---
General Patient Condition Mental Status/LOC: Same as Preop Cardiovascular: Satisfactory Nausea/Vomiting: Absent Respiratory: Satisfactory Pain: Controlled Complications: Absent Post Op Complications Complications None Follow Up Care/Instructions Patient Instructions None needed. Anesthesia/Patient Condition Patient Condition Patient is doing well, no complaints, stable vital signs, no apparent adverse anesthesia problems. SE HOOKS DO November 18, 2020 15:12
[2020-11-18 15:43] VITALS: BP 118/71
[2020-11-18] MEDS: SIMvastatin 10 MG (ZOCOR) TAB PO SCH (20:17)
[2020-11-18 23:26] VITALS: BP 144/78
[2020-11-19] MEDS: POTASSIUM CHLORIDE INJ 20 MEQ in D5 LR IV SOLUTION 1,000 ML IV SCH ×2 (00:03→10:22)
[2020-11-19] MEDS: KETOROLAC 30 MG/ML VIAL IVP SCH (04:33)
[2020-11-19 05:40] LABS: BASOPHILS # (AUTO) 0.1 10^3/uL (0.0-0.1); BASOPHILS % (AUTO) 1 % (0-10); EOSINOPHILS # (AUTO) 0.2 10^3/uL (0.0-0.3); EOSINOPHILS % (AUTO) 3 % (0-10); HEMATOCRIT 31 % (35-52); HEMOGLOBIN 9.8 g/dL (11.5-16.0); LYMPHOCYTES # (AUTO) 1.1 10^3/uL (1.0-4.0); LYMPHOCYTES % (AUTO) 14 % (12-44); MEAN CORPUSCULAR HEMOGLOBIN 26 pg (25-34); MEAN CORPUSCULAR HGB CONC 31 g/dL (32-36); MEAN CORPUSCULAR VOLUME 82 fL (80-99); MEAN PLATELET VOLUME 9.6 fL (9.0-12.2); MONOCYTES # (AUTO) 0.7 10^3/uL (0.0-1.0); MONOCYTES % (AUTO) 9 % (0-12); NEUTROPHILS % (AUTO) 74 % (42-75); PLATELET COUNT 196 10^3/uL (130-400); WHITE BLOOD COUNT 8.2 10^3/uL (4.3-11.0)
[2020-11-19 06:15] LABS: ALBUMIN 2.7 GM/DL (3.2-4.5); CHLORIDE 105 MMOL/L (98-107); POTASSIUM 3.7 MMOL/L (3.6-5.0); SODIUM 139 MMOL/L (135-145)
[2020-11-19 06:16] LABS: CALCIUM 8.4 MG/DL (8.5-10.1)
[2020-11-19 06:17] LABS: GLUCOSE 120 MG/DL (70-105)
[2020-11-19 06:18] LABS: TOTAL PROTEIN 4.8 GM/DL (6.4-8.2)
[2020-11-19 06:19] LABS: BILIRUBIN,TOTAL 0.4 MG/DL (0.1-1.0); CARBON DIOXIDE 27 MMOL/L (21-32)
[2020-11-19 06:21] LABS: ALKALINE PHOSPHATASE 47 U/L (40-136); CREATININE SERUM 0.65 MG/DL (0.60-1.30); GFR ESTIMATED > 60
[2020-11-19 06:22] LABS: BUN/CREATININE RATIO 5
[2020-11-19 06:24] LABS: ALANINE AMINOTRANSFERASE 9 U/L (0-55)
--- NOTE | 2020-11-19 06:39 | Discharge Summary ---
Discharge Summary Hospital Course Was the Problem List Reviewed?: Yes Problems/Dx: (1) Colonic mass (2) Hypokalemia Status: Acute (3) Nausea Status: Acute (4) Colitis Status: Acute (5) HTN (hypertension) Status: Chronic (6) HLD (hyperlipidemia) Status: Chronic (7) GI bleeding Status: Acute Qualifiers: Qualified Codes: K92.1 - Melena (8) Anemia Status: Acute Qualifiers: Hospital Course Date of Admission: November 10, 2020 at 16:40 Admission Diagnosis : Family Physician/Provider: Madi Mauricio MD Date of Discharge: 11/19/20 Discharge Diagnosis: s/p colon mass resection, colon cancer, HTN, dementia, hypokalemia Hospital Course: Standard course after admitted for GIB and electrolyte abnl. Patient underwent colonoscopy which revealed colon mass. Resection was performed successfully and patient regained bowel function and she was DC. Labs and Pending Lab Test: Laboratory Tests 11/19/20 05:31: White Blood Count 8.2, Red Blood Count 3.82, Hemoglobin 9.8L, Hematocrit 31L, Mean Corpuscular Volume 82, Mean Corpuscular Hemoglobin 26, Mean Corpuscular Hemoglobin Concent 31L, Red Cell Distribution Width 16.8H, Platelet Count 196, Mean Platelet Volume 9.6, Immature Granulocyte % (Auto) 1, Neutrophils (%) (Auto) 74, Lymphocytes (%) (Auto) 14, Monocytes (%) (Auto) 9, Eosinophils (%) (Auto) 3, Basophils (%) (Auto) 1, Neutrophils # (Auto) 6.0, Lymphocytes # (Auto) 1.1, Monocytes # (Auto) 0.7, Eosinophils # (Auto) 0.2, Basophils # (Auto) 0.1, Immature Granulocyte # (Auto) 0.0, Sodium Level 139, Potassium Level 3.7, Chloride Level 105, Carbon Dioxide Level 27, Anion Gap 7, Blood Urea Nitrogen 3L , Creatinine 0.65, Estimat Glomerular Filtration Rate > 60, BUN/Creatinine Ratio 5, Glucose Level 120H, Calcium Level 8.4L, Corrected Calcium 9.4, Total Bilirubin 0.4, Aspartate Amino Transf (AST/SGOT) 19, Alanine Aminotransferase (ALT/SGPT) 9, Alkaline Phosphatase 47, Total Protein 4.8L, Albumin 2.7L Microbiology 11/13/20 MRSA Screen - Final, Complete MRSA not isolated Home Meds Active Reported Iron (Ferrous Sulfate) 325 Mg Tablet 325 Mg PO DAILY PRN Benicar (Olmesartan Medoxomil) 20 Mg Tablet 20 Mg PO DAILY Aspirin EC (Aspirin) 81 Mg Tablet.dr 81 Mg PO DAILY Lovastatin 10 Mg Tablet 10 Mg PO HS Atenolol 50 Mg Tablet 50 Mg PO BID Carbidopa-Levodopa 10-100 Tab (Carbidopa/Levodopa) 1 Each Tablet 2 Tab PO TID Assessment/Pt Instructions [facility] 1 week Discharge Planning: <30 minutes discharge planning Discharge Instructions Discharge Diet: No Restrictions Activity as Tolerated: Yes Discharge Physical Examination Vital Signs Vital Signs Date Time Temp Pulse Resp B/P (MAP) Pulse Ox O2 Delivery O2 Flow Rate FiO2 11/18/20 23:26 36.2 71 16 144/78 (100) 99 Room Air 11/17/20 13:10 3 General Appearance: No Apparent Distress, WD/WN, Chronically ill Allergies: Coded Allergies: No Known Drug Allergies (Unverified , 07/28/19) Discharge Summary Date of Admission November 10, 2020 at 16:40 Date of Discharge Discharge Date: November 19, 2020 Discharge Diagnosis Assessment: Hepatic flexure mass s/p biopsy during Colonoscopy 11/14/20 Dementia Anemia HTN Plan: Await biopsy Monitor hgb 11/15/20: Nausea control Biopsy pending Midline 11/16/20: Family discussion with Dr Lemons today Supportive care 11/17/20: DC tomorrow set up (1) Hypokalemia Status: Acute (2) Nausea Status: Acute (3) Colitis Status: Acute (4) HTN (hypertension) Status: Chronic (5) HLD (hyperlipidemia) Status: Chronic (6) GI bleeding Status: Acute Qualifiers: Qualified Codes: K92.1 - Melena (7) Anemia Status: Acute Qualifiers: Clinical Quality Measures DVT/VTE Risk/Contraindication: Contraindications-Pharm: Other *list below* Other: SHAWNA Cagle DO November 19, 2020 06:39
[2020-11-19 08:16] VITALS: BP 178/76
[2020-11-19] MEDS: ACETAMINOPHEN 500 MG TAB (TYLENOL) PO SCH ×2 (09:25→09:27)
[2020-11-19] MEDS: SINEMET 10/100 (CARBIDOPA/LEVADOPA) TAB PO SCH (09:26)
[2020-11-19] MEDS: ATENOLOL 50 MG (TENORMIN) TAB PO SCH (09:26)
[2020-11-19] MEDS: LOSARTAN 100 MG (COZAAR) TABLET PO SCH (09:26)
[2020-11-19] MEDS: PANTOPRAZOLE 40 MG (PROTONIX) VIAL IV SCH (09:26)
--- NOTE | 2020-11-19 10:50 | Progress Note ---
Subjective Date Seen by a Provider: November 19, 2020 Time Seen by a Provider: 10:00 Subjective/Events-last exam doing well. ambulating well. pain controlled. tolerating diet and having bowel fxn. Objective Exam Vital Signs Date Time Temp Pulse Resp B/P (MAP) Pulse Ox O2 Delivery O2 Flow Rate FiO2 11/19/20 08:16 36.4 70 18 178/76 (110) 100 Room Air 11/19/20 07:50 Room Air 11/18/20 23:26 36.2 71 16 144/78 (100) 99 Room Air 11/18/20 20:02 Room Air 11/18/20 15:43 36.7 69 18 118/71 (87) 99 Room Air 11/18/20 12:00 37.0 75 20 129/74 (92) 100 Room Air I & O 11/19/20 07:00 Intake Total 1137 ml Balance 1137 ml Capillary Refill : Less Than 3 SecondsLess Than 3 Seconds General Appearance: No Apparent Distress HEENT: PERRL/EOMI Neck: Full Range of Motion Respiratory: Chest Non Tender, Lungs Clear, Normal Breath Sounds Cardiovascular: Regular Rate, Rhythm Gastrointestinal: normal bowel sounds, soft, tenderness Extremity: Normal Capillary Refill Neurologic/Psychiatric: Alert, Oriented x3 Skin: Normal Color Lymphatic: No Adenopathy Results Lab Laboratory Tests 11/19/20 05:31: White Blood Count 8.2, Red Blood Count 3.82, Hemoglobin 9.8L, Hematocrit 31L, M devaughn Corpuscular Volume 82, Mean Corpuscular Hemoglobin 26, Mean Corpuscular Hemoglobin Concent 31L, Red Cell Distribution Width 16.8H, Platelet Count 196, Mean Platelet Volume 9.6, Immature Granulocyte % (Auto) 1, Neutrophils (%) (Auto) 74, Lymphocytes (%) (Auto) 14, Monocytes (%) (Auto) 9, Eosinophils (%) (Auto) 3, Basophils (%) (Auto) 1, Neutrophils # (Auto) 6.0, Lymphocytes # (Auto) 1.1, Monocytes # (Auto) 0.7, Eosinophils # (Auto) 0.2, Basophils # (Auto) 0.1, Immature Granulocyte # (Auto) 0.0, Sodium Level 139, Potassium Level 3.7, Chloride Level 105, Carbon Dioxide Level 27, Anion Gap 7, Blood Urea Nitrogen 3L , Creatinine 0.65, Estimat Glomerular Filtration Rate > 60, BUN/Creatinine Ratio 5, Glucose Level 120H, Calcium Level 8.4L, Corrected Calcium 9.4, Total Bilirubin 0.4, Aspartate Amino Transf (AST/SGOT) 19, Alanine Aminotransferase (ALT/SGPT) 9, Alkaline Phosphatase 47, Total Protein 4.8L, Albumin 2.7L Microbiology 11/13/20 MRSA Screen - Final, Complete MRSA not isolated Assessment/Plan Assessment/Plan Assess & Plan/Chief Complaint s/p laparoscopic right hemicolectomy. ambulate. diet as tolerated. home soon. Clinical Quality Measures DVT/VTE Risk/Contraindication: Contraindications-Pharm: Other *list below* Other: CHOCO Tony MD November 19, 2020 10:50
== END 2020-11-19 10:45 | disposition home health service (06) | DRG 330 ==
LOC: EDUNIT# 11:45 → ER FS 11:46 → 4TH 16:40
PROVIDERS: ADMIT Family Medicine; ATTEND Internal Medicine
PROC: 0DBL8ZX Excision of Transverse Colon, Via Natural or Artificial Opening Endoscopic, Diagnostic (ICD-10-PCS; 2020-11-14)
PROC: 0DTF0ZZ Resection of Right Large Intestine, Open Approach (ICD-10-PCS; principal; 2020-11-17 10:54)
DX: C18.3 Malignant neoplasm of hepatic flexure (principal); K92.1 Melena; E87.5 Hyperkalemia; E87.6 Hypokalemia; I10 Essential (primary) hypertension; E78.5 Hyperlipidemia, unspecified; G30.9 Alzheimer's disease, unspecified; F02.80 Dementia in other diseases classified elsewhere, unspecified severity, without behavioral disturbance, psychotic disturbance, mood disturbance, and anxiety; G20 Parkinson's disease; D50.9 Iron deficiency anemia, unspecified; G62.9 Polyneuropathy, unspecified; Z79.2 Long term (current) use of antibiotics; Z79.82 Long term (current) use of aspirin
CPT/HCPCS: 36410; 36415; 74177; 76937; 80048; 80053; 81000; 82274; 83605; 83690; 83735; 85025; 85730; 87081; 96361; 96365; 96367; 96375

== ENCOUNTER 2020-12-22 13:34 | Outpatient (RCR) | payer MEDICARE ==
[~2020-12-22 13:34] MED LIST changes: +ASPI-1238 PO; +FERR-84 PO; +OLME20TA21 PO
[2020-12-22 15:36] LABS: ALANINE AMINOTRANSFERASE < 6 U/L (0-55); ALBUMIN 3.9 GM/DL (3.2-4.5); ALKALINE PHOSPHATASE 76 U/L (40-136); BILIRUBIN,TOTAL 0.3 MG/DL (0.1-1.0); BUN/CREATININE RATIO 7; CALCIUM 9.5 MG/DL (8.5-10.1); CARBON DIOXIDE 26 MMOL/L (21-32); CHLORIDE 103 MMOL/L (98-107); CREATININE SERUM 0.68 MG/DL (0.60-1.30); GFR ESTIMATED > 60; GLUCOSE 101 MG/DL (70-105); POTASSIUM 3.3 MMOL/L (3.6-5.0); SODIUM 137 MMOL/L (135-145); TOTAL PROTEIN 7.8 GM/DL (6.4-8.2)
== END 2021-03-17 14:02 | disposition home or self-care (01) ==
LOC: ONC 13:34
PROVIDERS: ATTEND Internal Medicine Hematology & Oncology
DX: C18.9 Malignant neoplasm of colon, unspecified (principal); D50.0 Iron deficiency anemia secondary to blood loss (chronic); G20 Parkinson's disease; F02.80 Dementia in other diseases classified elsewhere, unspecified severity, without behavioral disturbance, psychotic disturbance, mood disturbance, and anxiety
CPT/HCPCS: 80053; 82378; G0463; 99214

== ENCOUNTER 2021-06-15 12:59 | Outpatient (RCR) | payer MEDICARE ==
[2021-03-23 13:24] LABS: BASOPHILS # (AUTO) 0.1 10^3/uL (0.0-0.1); BASOPHILS % (AUTO) 1 % (0-10); EOSINOPHILS # (AUTO) 0.1 10^3/uL (0.0-0.3); EOSINOPHILS % (AUTO) 1 % (0-10); HEMATOCRIT 44 % (35-52); HEMOGLOBIN 14.1 g/dL (11.5-16.0); LYMPHOCYTES # (AUTO) 1.7 10^3/uL (1.0-4.0); LYMPHOCYTES % (AUTO) 31 % (12-44); MEAN CORPUSCULAR HEMOGLOBIN 28 pg (25-34); MEAN CORPUSCULAR HGB CONC 32 g/dL (32-36); MEAN CORPUSCULAR VOLUME 87 fL (80-99); MONOCYTES # (AUTO) 0.7 10^3/uL (0.0-1.0); MONOCYTES % (AUTO) 12 % (0-12); NEUTROPHILS % (AUTO) 54 % (42-75); PLATELET COUNT 205 10^3/uL (130-400); WHITE BLOOD COUNT 5.5 10^3/uL (4.3-11.0)
[2021-03-23 13:40] LABS: ALBUMIN 4.1 GM/DL (3.2-4.5); BILIRUBIN,TOTAL 0.5 MG/DL (0.1-1.0); CALCIUM 9.6 MG/DL (8.5-10.1); CREATININE SERUM 0.82 MG/DL (0.60-1.30); POTASSIUM 4.1 MMOL/L (3.6-5.0); TOTAL PROTEIN 7.3 GM/DL (6.4-8.2)
[2021-06-15 13:17] LABS: BASOPHILS # (AUTO) 0.1 10^3/uL (0.0-0.1); BASOPHILS % (AUTO) 1 % (0-10); EOSINOPHILS # (AUTO) 0.1 10^3/uL (0.0-0.3); EOSINOPHILS % (AUTO) 2 % (0-10); HEMATOCRIT 41 % (35-52); HEMOGLOBIN 13.3 g/dL (11.5-16.0); LYMPHOCYTES # (AUTO) 1.4 10^3/uL (1.0-4.0); LYMPHOCYTES % (AUTO) 25 % (12-44); MEAN CORPUSCULAR HEMOGLOBIN 29 pg (25-34); MEAN CORPUSCULAR HGB CONC 32 g/dL (32-36); MEAN CORPUSCULAR VOLUME 89 fL (80-99); MONOCYTES # (AUTO) 0.7 10^3/uL (0.0-1.0); MONOCYTES % (AUTO) 13 % (0-12); NEUTROPHILS # (AUTO) 3.3 10^3/uL (1.8-7.8); NEUTROPHILS % (AUTO) 58 % (42-75); PLATELET COUNT 199 10^3/uL (130-400); WHITE BLOOD COUNT 5.7 10^3/uL (4.3-11.0)
[2021-06-15 13:42] LABS: ALBUMIN 3.8 GM/DL (3.2-4.5); BILIRUBIN,TOTAL 0.3 MG/DL (0.1-1.0); CALCIUM 9.2 MG/DL (8.5-10.1); CREATININE SERUM 0.71 MG/DL (0.60-1.30); POTASSIUM 4.1 MMOL/L (3.6-5.0); TOTAL PROTEIN 6.8 GM/DL (6.4-8.2)
== END 2021-06-21 | disposition home or self-care (01) ==
LOC: ONC 12:59
PROVIDERS: ATTEND Internal Medicine Hematology & Oncology
DX: C18.9 Malignant neoplasm of colon, unspecified (principal); D50.0 Iron deficiency anemia secondary to blood loss (chronic); G20 Parkinson's disease; F02.80 Dementia in other diseases classified elsewhere, unspecified severity, without behavioral disturbance, psychotic disturbance, mood disturbance, and anxiety; I10 Essential (primary) hypertension
CPT/HCPCS: 80053; 82378; 85025; G0463; 99213

== ENCOUNTER 2021-08-07 14:35 | Emergency (ER) | payer MEDICARE ==
[2021-08-07] MEDS ORDERED: morphine INJ 10 MG/ML 1ML (SYR OR VIAL) IVP STA (14:47)
--- NOTE | 2021-08-07 14:54 | ED Abdominal Pain ---
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 She said it started last night, is moderate to severe, constant, sharp, and in the center of her abdomen. Has associated nausea but no vomiting. Had a normal bowel movement without blood that she could see recently. Has not had an appetite this morning but did eat yesterday. Denies any chest pain, shortness of breath, weakness, numbness, dysuria, diarrhea, fever, chills, rash, or any other concerns. Allergies and Home Medications Allergies Coded Allergies: No Known Drug Allergies (Unverified , 07/28/19) Patient Home Medication List Home Medication List Reviewed: Yes Aspirin (Aspirin EC) 81 Mg Tablet.dr, 81 MG PO DAILY, (Reported) Entered as Reported by: DARYL PURVIS on 11/11/20 154 Atenolol (Atenolol) 50 Mg Tablet, 50 MG PO BID, (Reported) Entered as Reported by: WANDA MARION on 07/28/19 1313 Carbidopa/Levodopa (Carbidopa-Levodopa 10-100 Tab) 1 Each Tablet, 2 TAB PO TID, (Reported) Entered as Reported by: WANDA MARION on 07/28/19 1313 Ferrous Sulfate (Iron) 325 Mg Tablet, 325 MG PO DAILY PRN for WEAKNESS, (Reported) Entered as Reported by: DARYL PURVIS on 11/11/20 154 Lovastatin (Lovastatin) 10 Mg Tablet, 10 MG PO HS, (Reported) Entered as Reported by: WANDA MARION on 07/28/19 1313 Olmesartan Medoxomil (Benicar) 20 Mg Tablet, 20 MG PO DAILY, (Reported) Entered as Reported by: DARYL PURVIS on 11/11/20 1542 Review of Systems Review of Systems Constitutional: No chills, No fever EENTM: No Blurred Vision Respiratory: Denies Cough Cardiovascular: Denies Chest Pain Gastrointestinal: Abdominal Pain; Denies Diarrhea; Nausea; Denies Vomiting Genitourinary: Denies Burning Musculoskeletal: no symptoms reported Skin: no symptoms reported Psychiatric/Neurological: No Symptoms Reported Endocrine: No Symptoms Reported Hematologic/Lymphatic: No Symptoms Reported All Other Systems Reviewed Negative Unless Noted: Yes Past Azmulmt-Hmhvim-Dficto Hx Patient Social History Tobacco Use?: No Seasonal Allergies Seasonal Allergies: No Past Medical History Surgery/Hospitalization HX: dementia, HTN, colon cancer s/p partial colectomy, anemia Surgeries: Yes Gallbladder, Hysterectomy Respiratory: No Cardiac: Yes Hypertension Neurological: Yes Dementia, Parkinson's Disease [employer] History: Hysterectomy Genitourinary: No Gastrointestinal: No Musculoskeletal: No Endocrine: No HEENT: No Cancer: No Psychosocial: No Integumentary: No Blood Disorders: No Family Medical History Heart Disease, Cancer, Diabetes Physical Exam Vital Signs Vital Signs - First Documented 08/07/21 15:25 Temp 36.2 Pulse 63 Resp 16 B/P (MAP) 189/79 (115) O2 Delivery Room Air Capillary Refill : Height/Weight/BMI Height: '" Weight: lbs. oz. kg; 24.60 BMI Method: General Appearance: WD/WN, no apparent distress HEENT: PERRL/EOMI, normal ENT inspection, pharynx normal Neck: non-tender, full range of motion, supple, normal inspection Respiratory: chest non-tender, lungs clear, normal breath sounds, no respiratory distress, no accessory muscle use Cardiovascular: regular rate, rhythm, no edema, no murmur Gastrointestinal: normal bowel sounds, soft; No guarding, No rebound; tenderness Extremities: normal range of motion, non-tender, normal inspection, no pedal edema, no calf tenderness, normal capillary refill Back: normal inspection, no CVA tenderness, no vertebral tenderness Neurologic/Psychiatric: no motor/sensory deficits, alert, normal mood/affect Skin: normal color, warm/dry Lymphatic: no adenopathy Progress/Results/Core Measures Results/Orders Lab Results Laboratory Tests Test 08/07/21 14:57 Range/Units White Blood Count 5.7 4.3-11.0 10^3/uL Red Blood Count 4.69 3.80-5.11 10^6/uL Hemoglobin 13.3 11.5-16.0 g/dL Hematocrit 40 35-52 % Mean Corpuscular Volume 85 80-99 fL Mean Corpuscular Hemoglobin 28 25-34 pg Mean Corpuscular Hemoglobin Concent 33 32-36 g/dL Red Cell Distribution Width 12.9 10.0-14.5 % Platelet Count 197 130-400 10^3/uL Mean Platelet Volume 10.3 9.0-12.2 fL Immature Granulocyte % (Auto) 0 % Neutrophils (%) (Auto) 56 42-75 % Lymphocytes (%) (Auto) 32 12-44 % Monocytes (%) (Auto) 9 0-12 % Eosinophils (%) (Auto) 3 0-10 % Basophils (%) (Auto) 1 0-10 % Neutrophils # (Auto) 3.2 1.8-7.8 10^3/uL Lymphocytes # (Auto) 1.8 1.0-4.0 10^3/uL Monocytes # (Auto) 0.5 0.0-1.0 10^3/uL Eosinophils # (Auto) 0.1 0.0-0.3 10^3/uL Basophils # (Auto) 0.0 0.0-0.1 10^3/uL Immature Granulocyte # (Auto) 0.0 0.0-0.1 10^3/uL Sodium Level 138 135-145 MMOL/L Potassium Level 4.2 3.6-5.0 MMOL/L Chloride Level 102 98-107 MMOL/L Carbon Dioxide Level 25 21-32 MMOL/L Anion Gap 11 5-14 MMOL/L Blood Urea Nitrogen 12 7-18 MG/DL Creatinine 0.72 0.60-1.30 MG/DL Estimat Glomerular Filtration Rate 81 BUN/Creatinine Ratio 17 Glucose Level 114 H 70-105 MG/DL Calcium Level 9.3 8.5-10.1 MG/DL Corrected Calcium 9.4 8.5-10.1 MG/DL Total Bilirubin 0.4 0.1-1.0 MG/DL Aspartate Amino Transf (AST/SGOT) 17 5-34 U/L Alanine Aminotransferase (ALT/SGPT) 9 0-55 U/L Alkaline Phosphatase 88 40-136 U/L Total Protein 6.7 6.4-8.2 GM/DL Albumin 3.9 3.2-4.5 GM/DL Lipase 20 8-78 U/L My Orders Orders - DENG HUNTER MD Comprehensive Metabolic Panel (08/07/21 14:47) Lipase (08/07/21 14:47) Ua Culture If Indicated (08/07/21 14:47) Ed Iv/Invasive Line Start (08/07/21 14:47) Cbc With Automated Diff (08/07/21 14:47) Ct Abdomen/Pelvis W (08/07/21 14:47) Ondansetron Injection (Zofran Injectio (08/07/21 15:00) Morphine Injection (Morphine Injection (08/07/21 14:47) Iohexol Injection (Omnipaque 350 Mg/Ml 1 (08/07/21 15:30) Received Contrast (Hold Metformin- Contr (08/07/21 15:30) Ns (Ivpb) (Sodium Chloride 0.9% Ivpb Bag (08/07/21 15:30) Medications Given in ED Current Medications Medications Dose Ordered Sig/Isaiah Route Start Time Stop Time Status Last Admin Dose Admin Iohexol 150 ml ONCE ONCE IV 08/07/21 15:30 08/07/21 15:32 DC 08/07/21 15:50 100 ML Ondansetron HCl 4 mg ONCE ONCE IVP 08/07/21 15:00 08/07/21 15:01 DC 08/07/21 14:57 4 MG Sodium Chloride 100 ml ONCE ONCE IV 08/07/21 15:30 08/07/21 15:32 DC 08/07/21 15:50 100 ML Vital Signs/I&O 08/07/21 15:25 Temp 36.2 Pulse 63 Resp 16 B/P (MAP) 189/79 (115) O2 Delivery Room Air Progress Progress Note : Progress Note 86-year-old female with above history coming in due to abdominal pain. ABCs were intact and vitals were stable on presentation. She is mildly tender on exam, but has no signs of peritonitis. Given her history especially her surgical history basic labs obtained and CT abdomen and pelvis ordered. LFTs n ormal, lipase normal, white blood cell count normal, electrolytes normal, creatinine normal. CT abdomen and pelvis with no acute findings. She was given IV morphine and Zofran on arrival for pain and nausea. She says she is not really having a lot of pain at this time now. I will recommend follow-up with her surgeon for reevaluation and potential colonoscopy if they deem that n ecessary. She was then discharged home in stable condition with strict return precautions Diagnostic Imaging Diagonstic Imaging: CT Plain Films/CT/US/NM/MRI: abdomen, pelvis Comments [facility] [place], [place] NAME: TIRSO SAMSON [facility] REC#: [id number] PT STATUS: REG ER : 1935 PHYSICIAN: DENG HUNTER MD ADMIT DATE: 08/07/21/ER FS Draft Date of Exam:08/07/21 CT ABDOMEN/PELVIS W PROCEDURE: CT abdomen and pelvis with contrast. TECHNIQUE: Multiple contiguous axial images were obtained through the abdomen and pelvis after administration of intravenous contrast. Auto Exposure Controls were utilized during the CT exam to meet ALARA standards for radiation dose reduction. All CT scans use one or more of the following dose optimizing techniques: automated exposure control, MA and/or KvP adjustment based on patient size and exam type or iterative reconstruction. INDICATION: Mid abdominal pain. COMPARISON: 11/10/2020 and 07/28/2019. FINDINGS: Dependent atelectasis within the lung bases. Cyst with associated calcification within the anterior aspect of the left hepatic lobe is again identified, appearing stable. Additional cysts within the liver are again identified and stable. Rounded hypodensity along the inferior margin of the right hepatic lobe has slightly decreased in size since the prior examination. This currently measures 1.2 cm when previously it measured 1.8 cm. No new hepatic lesion. Cholecystectomy. The spleen is unremarkable. The adrenal glands are unremarkable. The pancreas is unremarkable. Bilateral renal cysts are again identified without hydronephrosis. Mild scattered vascular calcifications without aneurysmal dilatation of the abdominal aorta. Small fat-containing supraumbilical and umbilical anterior abdominal wall hernias, new from the prior examination. Post surgical changes of a right hemicolectomy are now identified. Minimal colonic diverticulosis without CT evidence of diverticulitis. No bowel obstruction or pneumatosis. The previously noted filling defect within the left aspect of the urinary bladder is not definitively seen on this examination. The urinary bladder is otherwise unremarkable. The uterus is not visualized, likely surgically absent. No new abnormal adnexal mass lesion. No new adenopathy, free air, or free fluid within the abdomen or pelvis. Minimal grade 1 anterolisthesis of L4 on L5, felt to be degenerative in nature. Scattered osseous degenerative changes without acute osseous abnormality. IMPRESSION: Interval post surgical changes of a right hemicolectomy. Rounded hypodense nodule along the inferior margin of the right hepatic lobe adjacent to the previously noted mass lesion at the hepatic flexure has decreased in size from the prior examination. This is nonspecific and could relate to an improving post surgical fluid collection and scar. Improving metastatic disease is not completely excluded. This, however, has decreased in size from prior imaging. New small sized fat-containing umbilical and supraumbilical anterior abdominal wall hernias. Previously noted filling defect within the left aspect of the urinary bladder is no longer visualized. Dictated on workstation # [id number] Dict: 08/07/21 1610 Trans: 08/07/21 1624 [id number] Interpreted by: NISREEN CRAWFORD MD Electronically signed by: Departure Impression Primary Impression: Abdominal pain Qualified Codes: R10.33 - Periumbilical pain Additional Impressions: H/O partial resection of colon H/O malignant neoplasm of colon Disposition: 01 HOME, SELF-CARE Condition: Stable Departure-Patient Inst. Decision time for Depature: 16:34 Referrals: CAROL AVINA MD (PCP/Family) Primary Care Physician CHOCO MCKENZIE MD Patient Instructions: Abdominal Pain, Adult ED Add. Discharge Instructions: Your labs look good today and your CT scan does not show anything new or abnormal. The CT scan does not show absolutely everything, so I want you to follow-up with your regular doctor as well as your surgeon that took out part of your colon. They may want to do an upper and lower GI scope on you if you continue to have problems. If pain becomes very severe, or you have uncontrollable vomiting then please come back to the ER. Otherwise, I recommend taking Tylenol 1000 mg every 6-8 hours for pain. DENG HUNTER MD Aug 07, 2021 14:53
[2021-08-07] MEDS ORDERED: ONDANSETRON 4 MG/2 ML (SDV) Z0FRAN IVP ONE (15:00)
[2021-08-07 15:05] LABS: BASOPHILS % (AUTO) 1 % (0-10); EOSINOPHILS # (AUTO) 0.1 10^3/uL (0.0-0.3); EOSINOPHILS % (AUTO) 3 % (0-10); HEMATOCRIT 40 % (35-52); HEMOGLOBIN 13.3 g/dL (11.5-16.0); LYMPHOCYTES # (AUTO) 1.8 10^3/uL (1.0-4.0); LYMPHOCYTES % (AUTO) 32 % (12-44); MEAN CORPUSCULAR HEMOGLOBIN 28 pg (25-34); MEAN CORPUSCULAR HGB CONC 33 g/dL (32-36); MEAN CORPUSCULAR VOLUME 85 fL (80-99); MEAN PLATELET VOLUME 10.3 fL (9.0-12.2); MONOCYTES # (AUTO) 0.5 10^3/uL (0.0-1.0); MONOCYTES % (AUTO) 9 % (0-12); NEUTROPHILS # (AUTO) 3.2 10^3/uL (1.8-7.8); NEUTROPHILS % (AUTO) 56 % (42-75); PLATELET COUNT 197 10^3/uL (130-400); WHITE BLOOD COUNT 5.7 10^3/uL (4.3-11.0)
[2021-08-07 15:25] VITALS: BP 189/79
[2021-08-07 15:27] LABS: BILIRUBIN,TOTAL 0.4 MG/DL (0.1-1.0); CALCIUM 9.3 MG/DL (8.5-10.1); CREATININE SERUM 0.72 MG/DL (0.60-1.30); POTASSIUM 4.2 MMOL/L (3.6-5.0)
[2021-08-07 15:28] LABS: ALBUMIN 3.9 GM/DL (3.2-4.5); TOTAL PROTEIN 6.7 GM/DL (6.4-8.2)
[2021-08-07] MEDS ORDERED: IOHEXOL 350 MG/ML 150 ML (OMNIPAQUE 350) VIAL IV ONE (15:30)
[2021-08-07] MEDS ORDERED: HOLD METFORMIN - RECEIVED CONTRAST 20 ML VIAL IV SCH (15:30)
[2021-08-07] MEDS ORDERED: NS 100 ML (IVPB) BAG IV ONE (15:30)
--- NOTE | 2021-08-07 16:25 | Diagnostic Imaging Report ---
PROCEDURE: CT abdomen and pelvis with contrast. TECHNIQUE: Multiple contiguous axial images were obtained through the abdomen and pelvis after administration of intravenous contrast. Auto Exposure Controls were utilized during the CT exam to meet ALARA standards for radiation dose reduction. All CT scans use one or more of the following dose optimizing techniques: automated exposure control, MA and/or KvP adjustment based on patient size and exam type or iterative reconstruction. INDICATION: Mid abdominal pain. COMPARISON: 11/10/2020 and 07/28/2019. FINDINGS: Dependent atelectasis within the lung bases. Cyst with associated calcification within the anterior aspect of the left hepatic lobe is again identified, appearing stable. Additional cysts within the liver are again identified and stable. Rounded hypodensity along the inferior margin of the right hepatic lobe has slightly decreased in size since the prior examination. This currently measures 1.2 cm when previously it measured 1.8 cm. No new hepatic lesion. Cholecystectomy. The spleen is unremarkable. The adrenal glands are unremarkable. The pancreas is unremarkable. Bilateral renal cysts are again identified without hydronephrosis. Mild scattered vascular calcifications without aneurysmal dilatation of the abdominal aorta. Small fat-containing supraumbilical and umbilical anterior abdominal wall hernias, new from the prior examination. Post surgical changes of a right hemicolectomy are now identified. Minimal colonic diverticulosis without CT evidence of diverticulitis. No bowel obstruction or pneumatosis. The previously noted filling defect within the left aspect of the urinary bladder is not definitively seen on this examination. The urinary bladder is otherwise unremarkable. The uterus is not visualized, likely surgically absent. No new abnormal adnexal mass lesion. No new adenopathy, free air, or free fluid within the abdomen or pelvis. Minimal grade 1 anterolisthesis of L4 on L5, felt to be degenerative in nature. Scattered osseous degenerative changes without acute osseous abnormality. IMPRESSION: Interval post surgical changes of a right hemicolectomy. Rounded hypodense nodule along the inferior margin of the right hepatic lobe adjacent to the previously noted mass lesion at the hepatic flexure has decreased in size from the prior examination. This is nonspecific and could relate to an improving post surgical fluid collection and scar. Improving metastatic disease is not completely excluded. This, however, has decreased in size from prior imaging. New small sized fat-containing umbilical and supraumbilical anterior abdominal wall hernias. Previously noted filling defect within the left aspect of the urinary bladder is no longer visualized. Dictated by: Dictated on workstation # [id number]
== END 2021-08-07 16:40 | disposition home or self-care (01) ==
LOC: EDUNIT# 14:35 → ER FS 14:36
DX: R10.9 Unspecified abdominal pain (principal); I10 Essential (primary) hypertension; G20 Parkinson's disease; F02.80 Dementia in other diseases classified elsewhere, unspecified severity, without behavioral disturbance, psychotic disturbance, mood disturbance, and anxiety; Z85.038 Personal history of other malignant neoplasm of large intestine; Z79.82 Long term (current) use of aspirin
CPT/HCPCS: 36415; 74177; 80053; 83690; 85025; 99283

== ENCOUNTER → 2021-09-19 | Outpatient (CLI) | payer MEDICARE ==
[2021-09-19 14:30] LABS: BASOPHILS # (AUTO) 0.1 10^3/uL (0.0-0.1); BASOPHILS % (AUTO) 1 % (0-10); EOSINOPHILS # (AUTO) 0.2 10^3/uL (0.0-0.3); EOSINOPHILS % (AUTO) 4 % (0-10); HEMATOCRIT 44 % (35-52); HEMOGLOBIN 14.1 g/dL (11.5-16.0); LYMPHOCYTES # (AUTO) 1.1 10^3/uL (1.0-4.0); LYMPHOCYTES % (AUTO) 20 % (12-44); MEAN CORPUSCULAR HEMOGLOBIN 28 pg (25-34); MEAN CORPUSCULAR HGB CONC 32 g/dL (32-36); MEAN CORPUSCULAR VOLUME 88 fL (80-99); MEAN PLATELET VOLUME 10.2 fL (9.0-12.2); MONOCYTES # (AUTO) 0.5 10^3/uL (0.0-1.0); MONOCYTES % (AUTO) 9 % (0-12); NEUTROPHILS # (AUTO) 3.7 10^3/uL (1.8-7.8); NEUTROPHILS % (AUTO) 66 % (42-75); PLATELET COUNT 190 10^3/uL (130-400); WHITE BLOOD COUNT 5.6 10^3/uL (4.3-11.0)
[2021-09-19 14:50] LABS: ALANINE AMINOTRANSFERASE < 6 U/L (0-55); ALKALINE PHOSPHATASE 79 U/L (40-136); BILIRUBIN,TOTAL 0.5 MG/DL (0.1-1.0); BUN/CREATININE RATIO 20; CALCIUM 9.5 MG/DL (8.5-10.1); CARBON DIOXIDE 28 MMOL/L (21-32); CHLORIDE 105 MMOL/L (98-107); CREATININE SERUM 0.76 MG/DL (0.60-1.30); GFR ESTIMATED 76; GLUCOSE 109 MG/DL (70-105); POTASSIUM 4.1 MMOL/L (3.6-5.0); SODIUM 140 MMOL/L (135-145); TOTAL PROTEIN 7.1 GM/DL (6.4-8.2)
== END ==
LOC: EDSTATUS 06-22 08:06 → ONC 14:00
PROVIDERS: ATTEND Internal Medicine Hematology & Oncology
DX: C18.9 Malignant neoplasm of colon, unspecified (principal); D50.9 Iron deficiency anemia, unspecified; I10 Essential (primary) hypertension; G20 Parkinson's disease; F02.80 Dementia in other diseases classified elsewhere, unspecified severity, without behavioral disturbance, psychotic disturbance, mood disturbance, and anxiety
CPT/HCPCS: 80053; 82378; 85025; G0463; 99213

== ENCOUNTER → 2021-11-09 | Outpatient (CLI) | payer MEDICARE ==
[~2021-11-09] VITALS: Ht 157.5 cm; Wt 67.6 kg
== END | disposition home or self-care (01) ==
LOC: PREOP 06:51
PROVIDERS: ATTEND Surgery
DX: Z01.818 Encounter for other preprocedural examination (principal)

== ENCOUNTER 2021-11-20 09:50 | Day surgery (SDC) | payer MEDICARE ==
[~2021-11-20] VITALS: Ht 157.5 cm; Wt 67.6 kg
[2021-11-20] MEDS ORDERED: LACTATED RINGERS 1,000 ML IV STA (10:04)
[2021-11-20 10:21] VITALS: BP 178/87
--- NOTE | 2021-11-20 11:06 | Progress Note-Pre Operative ---
Pre-Operative Progress Note H&P Reviewed The H&P was reviewed, patient examined and no changes noted. Time Seen by Provider: 11:04 Date H&P Reviewed: November 20, 2021 Time H&P Reviewed: 11:04 Pre-Operative Diagnosis: Hx of Colon CA VANE JURADO DO November 20, 2021 11:06
[2021-11-20] MEDS ORDERED: PROPOFOL INJECTION 50 ML IV ONE (11:38)
[2021-11-20 12:00] VITALS: BP 128/63
[2021-11-20 12:05] VITALS: BP 120/65
[2021-11-20 12:10] VITALS: BP 120/65
--- NOTE | 2021-11-20 12:10 | Progress Note-Post Operative ---
Post-Operative Progess Note Surgeon (s)/Sat Math Tutor (s) Surgeon VANE JURADO DO Sat Math Tutor: none Pre-Operative Diagnosis Hx of Colon CA Post-Operative Diagnosis Polyp diverticula int hemorrhoids Procedure & Operative Findings Date of Procedure 11/20/21 Procedure Performed/Findings Colonoscopy with hot bx PROCEDURE NOTE: After informed consent was obtained, the patient was brought to the endoscopy suite, placed in bed in left lateral decubitus position. She was administered IV sedation by the VICE PRESIDENT INTEGRATED who then monitored her vitals the entire time, heart rate, blood pressure and pulse ox and the scope was inserted, pushed all the way to about 110 cm and pushed to right portion of colon. Took a picture of the anastomosis and then slowly withdrew the scope insufflating to look circumferentially at the lazaro starting in the transverse colon,, down to the splenic flexure, into the descending colon and then the sigmoid. Found a flat polyp and elected to do a hot biopsy to remove it. I also saw diverticula and took a picture of them. Finally into the rectal vault and retroflexed the scope. Took a picture of the internal hemorrhoids. The patient tolerated the procedure. She was recovered in endoscopy suite. Recommended for repeat colonoscopy in 1 year because of history of colon CA. Anesthesia Type IV sedation by VICE PRESIDENT INTEGRATED Estimated Blood Loss Estimated blood loss (mL): scant Specimens/Packing Specimens Removed sigmoid polyp VANE JURADO DO November 20, 2021 12:10
--- NOTE | 2021-11-20 12:12 | Endoscopy Discharge Instruct ---
Endo Procedure/Findings Findings 1.: Polyp 2.: Diverticulosis 3.: Internal Hemorrhoids Discharge Instructions - Activity: You might feel a little sleepy until tomorrow. This is due to the medicine you received to relax you. Until tomorrow, you should: NOT drive a car, operate machinery or power tools. NOT drink any alcoholic beverages. NOT make any important decisions or sign importortant papers. Do not return to work until tomorrow, unless otherwise instructed. Resume previous activities tomorrow. Diet: Start by taking liquids. If you tolerate liquids, advance to solid food. 1.: Colonoscopy in 1 year Notify Physician - If you experience excessive bleeding, unusual abdominal pain, fever, or chest pain, contact your doctor immediately. VANE JURADO DO November 20, 2021 12:12
[2021-11-20 12:37] VITALS: BP 120/65
--- NOTE | 2021-11-20 13:11 | Anesthesia-General Post-Op ---
MAC Patient Condition Mental Status/LOC: Same as Preop Cardiovascular: Satisfactory Nausea/Vomiting: Absent Respiratory: Satisfactory Pain: Controlled Complications: Absent Post Op Complications Complications None Follow Up Care/Instructions Patient Instructions None needed. Anesthesiology Discharge Order Discharge Order Patient is doing well, no complaints, stable vital signs, no apparent adverse anesthesia problems. No complications reported per nursing. DOMITILA DUNN CRNA November 20, 2021 13:11
== END 2021-11-20 12:37 | disposition home or self-care (01) ==
LOC: ENDO 09:50
PROVIDERS: ATTEND Surgery
DX: Z12.11 Encounter for screening for malignant neoplasm of colon (principal); D12.5 Benign neoplasm of sigmoid colon; K57.30 Diverticulosis of large intestine without perforation or abscess without bleeding; K64.8 Other hemorrhoids; F03.90 Unspecified dementia, unspecified severity, without behavioral disturbance, psychotic disturbance, mood disturbance, and anxiety; Z85.038 Personal history of other malignant neoplasm of large intestine; Z79.82 Long term (current) use of aspirin; Z79.899 Other long term (current) drug therapy
CPT/HCPCS: 88305

== ENCOUNTER → 2021-11-29 | Outpatient (CLI) | payer MEDICARE ==
[2021-11-29 13:33] LABS: BASOPHILS # (AUTO) 0.1 10^3/uL (0.0-0.1); BASOPHILS % (AUTO) 1 % (0-10); EOSINOPHILS # (AUTO) 0.2 10^3/uL (0.0-0.3); EOSINOPHILS % (AUTO) 3 % (0-10); HEMATOCRIT 40 % (35-52); HEMOGLOBIN 12.9 g/dL (11.5-16.0); LYMPHOCYTES # (AUTO) 1.2 10^3/uL (1.0-4.0); LYMPHOCYTES % (AUTO) 23 % (12-44); MEAN CORPUSCULAR HEMOGLOBIN 28 pg (25-34); MEAN CORPUSCULAR HGB CONC 32 g/dL (32-36); MEAN CORPUSCULAR VOLUME 87 fL (80-99); MEAN PLATELET VOLUME 10.1 fL (9.0-12.2); MONOCYTES # (AUTO) 0.6 10^3/uL (0.0-1.0); MONOCYTES % (AUTO) 11 % (0-12); NEUTROPHILS # (AUTO) 3.2 10^3/uL (1.8-7.8); NEUTROPHILS % (AUTO) 62 % (42-75); PLATELET COUNT 188 10^3/uL (130-400); WHITE BLOOD COUNT 5.1 10^3/uL (4.3-11.0)
[2021-11-29 13:50] LABS: ALBUMIN 3.6 GM/DL (3.2-4.5); POTASSIUM 4.2 MMOL/L (3.6-5.0)
[2021-11-29 13:52] LABS: CALCIUM 9.2 MG/DL (8.5-10.1)
[2021-11-29 13:53] LABS: TOTAL PROTEIN 6.3 GM/DL (6.4-8.2)
[2021-11-29 13:54] LABS: BILIRUBIN,TOTAL 0.5 MG/DL (0.1-1.0)
[2021-11-29 13:56] LABS: CREATININE SERUM 0.75 MG/DL (0.60-1.30)
== END ==
LOC: ONC 12:45
PROVIDERS: ATTEND Internal Medicine Hematology & Oncology
DX: C18.9 Malignant neoplasm of colon, unspecified (principal); G20 Parkinson's disease; F02.80 Dementia in other diseases classified elsewhere, unspecified severity, without behavioral disturbance, psychotic disturbance, mood disturbance, and anxiety; I10 Essential (primary) hypertension; D50.0 Iron deficiency anemia secondary to blood loss (chronic)
CPT/HCPCS: 80053; 82378; 85025; G0463; 36415; 99213

== ENCOUNTER 2021-11-30 09:31 | Emergency (ER) | payer MEDICARE ==
[~2021-11-30] VITALS: Ht 157.5 cm; Wt 61.2 kg
[2021-11-30 09:48] LABS: BILIRUBIN,URINE NEGATIVE (NEGATIVE); CLARITY,URINE CLOUDY; COLOR,URINE YELLOW; GLUCOSE, URINE (UA) NEGATIVE (NEGATIVE); KETONES,URINE TRACE (NEGATIVE); LEUKOCYTE ESTERASE ,URINE NEGATIVE (NEGATIVE); NITRITE,URINE NEGATIVE (NEGATIVE); PH,URINE 7.5 (5-9); PROTEIN,URINE NEGATIVE (NEGATIVE)
[2021-11-30] MEDS ORDERED: IOHEXOL 350 MG/ML 100 ML (OMNIPAQUE 350) VIAL IV ONE (10:15)
[2021-11-30] MEDS ORDERED: HOLD METFORMIN - RECEIVED CONTRAST 20 ML VIAL IV SCH (10:15)
[2021-11-30] MEDS ORDERED: NS 100 ML (IVPB) BAG IV ONE (10:15)
[2021-11-30] MEDS ORDERED: CATHETER FLUSH 10 ML SYR IV PRN (10:15)
[2021-11-30 10:17] LABS: AMORPHOUS SEDIMENT,UR MOD AMOR PHOSPHATE /LPF; BACTERIA,URINE MODERATE /HPF; SQUAMOUS EPITHELIAL CELL,UR 0-2 /HPF; WBC,URINE RARE /HPF
[2021-11-30 10:18] LABS: URINE OTHER FECAL CONTAM.SUSPECT /HPF
--- NOTE | 2021-11-30 10:31 | ED GI ---
General Chief Complaint: Abdominal/GI Problems Stated Complaint: NAUSEA; ABD PAIN Nursing Triage Note: This patient arrives to the ED via private vehicle driven by her son. She ambulates with assistance of a cane into the ED with C/O upper abdominal pain that started around a month ago that comes with nausea. She states that she is "a little upset this morning at her and daughter" which she believes is contributing to this pain as well. The patient states that she has cancer but is unsure of what kind or where, she has not saught treatment regarding the cancer but Luly told her she has it. Source of Information: Patient, Old Records History of Present Illness Date Seen by Provider: Nov 30, 2021 Time Seen by Provider: 09:36 Initial Comments 86-year-old female presenting with complaints of 1 month of vague abdominal pain in the upper abdomen. She had not been too worried about it because it does have it evaluated until today. She states that she has had no nausea or vomiting, diarrhea, constipation, pain with urination, fever, chills. There is nothing that makes the pain better or worse. She had gotten upset with her and daughter this morning so she felt that made her pain worse. She had her son bring her here to the emergency department. She did have blood work yesterday on November 29 as a follow-up for her colon cancer. Those labs all looked clear and had a low CEA. Timing/Duration: Other (Over a month) Severity/Quality: Mild, Aching Location: Generalized Abdomen (But worse in the upper abdomen) Radiation: No Radiation Activities at Onset: None Associated Symptoms: No Back Pain, No Chest Pain, No Diaphoresis, No Fever/Chills, No Fatigue, No Headache, No Heartburn, No Nausea/Vomiting, No Rash, No Shortness of Air, No Swelling/Mass in Abdomen, No Syncope, No Weakness Allergies and Home Medications Allergies Coded Allergies: No Known Drug Allergies (Unverified , 07/28/19) Patient Home Medication List Home Medication List Reviewed: Yes Aspirin (Aspirin EC) 81 Mg Tablet.dr, 81 MG PO DAILY, (Reported) Entered as Reported by: DARYL PURVIS on 11/11/20 1542 Atenolol (Atenolol) 50 Mg Tablet, 50 MG PO BID, (Reported) Entered as Reported by: WANDA MARION on 07/28/19 1313 Carbidopa/Levodopa (Carbidopa-Levodopa 10-100 Tab) 1 Each Tablet, 2 TAB PO TID, (Reported) Entered as Reported by: WANDA MARION on 07/28/19 1313 Lovastatin (Lovastatin) 10 Mg Tablet, 10 MG PO HS, (Reported) Entered as Reported by: WANDA MARION on 07/28/19 1313 Olmesartan Medoxomil (Benicar) 20 Mg Tablet, 20 MG PO DAILY, (Reported) Entered as Reported by: DARYL PURVIS on 11/11/20 1542 Review of Systems Review of Systems Constitutional: No chills, No fever EENTM: No Symptoms Reported Respiratory: No Symptoms Reported Cardiovascular: No Symptoms Reported Gastrointestinal: See HPI Genitourinary: Denies Burning, Denies Flank Pain, Denies Pain, Denies Urgency Musculoskeletal: no symptoms reported Skin: No rash Psychiatric/Neurological: No Symptoms Reported Endocrine: No Symptoms Reported Hematologic/Lymphatic: No Symptoms Reported Past Eynfsue-Yzhsuq-Dwdcia Hx Patient Social History Tobacco Use?: No Smoking Status: Never a Smoker Use of E-Cig and/or Vaping Rohan: Never a User Substance use?: No Alcohol Use?: No Pt feels they are or have been: No Immunizations Up To Date First/Initial COVID19 Vaccinat: Unknown Second COVID19 Vaccination Alex: Unknown Third COVID19 Vaccination Date: YES Seasonal Allergies Seasonal Allergies: No Past Medical History Surgery/Hospitalization HX: Colon cancer, hysterectomy, cholecystectomy, hypertension, Parkinson's Surgeries: Yes Gallbladder, Hysterectomy Respiratory: No Cardiac: Yes Hypertension Neurological: Yes Dementia, Parkinson's 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 oz. kg; 24.00 BMI Method: General Appearance: WD/WN, no apparent distress HEENT: PERRL/EOMI, pharynx normal Neck: non-tender, full range of motion, supple, normal inspection Respiratory: chest non-tender, lungs clear, normal breath sounds, no respiratory distress, no accessory muscle use Cardiovascular: normal peripheral pulses, regular rate, rhythm Gastrointestinal: normal bowel sounds, non tender, soft, no pulsatile mass Rectal: deferred Extremities: normal range of motion, non-tender, no calf tenderness, normal capillary refill Back: no CVA tenderness, no vertebral tenderness Neurologic/Psychiatric: alert, oriented x 3 Skin: normal color, warm/dry Progress/Results/Core Measures Results/Orders Lab Results Laboratory Tests Test 11/30/21 09:40 11/30/21 10:20 Range/Units Urine Color YELLOW Urine Clarity CLOUDY Urine pH 7.5 5-9 Urine Specific Antonito 1.020 1.016-1.022 Urine Protein NEGATIVE NEGATIVE Urine Glucose (UA) NEGATIVE NEGATIVE Urine Ketones TRACE H NEGATIVE Urine Nitrite NEGATIVE NEGATIVE Urine Bilirubin NEGATIVE NEGATIVE Urine Urobilinogen 0.2 < = 1.0 MG/DL Urine Leukocyte Esterase NEGATIVE NEGATIVE Urine RBC (Auto) NEGATIVE NEGATIVE Urine RBC NONE /HPF Urine WBC RARE /HPF Urine Squamous Epithelial Cells 0-2 /HPF Urine Crystals PRESENT H /LPF Urine Amorphous Sediment MOD TANNER PHOSPHATE H /LPF Urine Bacteria MODERATE H /HPF Urine Casts NONE /LPF Urine Mucus SMALL H /LPF Urine Other FECAL CONTAM.SUSPECT /HPF Urine Culture Indicated NO White Blood Count 5.5 4.3-11.0 10^3/uL Red Blood Count 4.47 3.80-5.11 10^6/uL Hemoglobin 12.6 11.5-16.0 g/dL Hematocrit 38 35-52 % Mean Corpuscular Volume 85 80-99 fL Mean Corpuscular Hemoglobin 28 25-34 pg Mean Corpuscular Hemoglobin Concent 33 32-36 g/dL Red Cell Distribution Width 13.6 10.0-14.5 % Platelet Count 225 130-400 10^3/uL Mean Platelet Volume 11.2 9.0-12.2 fL Immature Granulocyte % (Auto) 0 % Neutrophils (%) (Auto) 62 42-75 % Lymphocytes (%) (Auto) 23 12-44 % Monocytes (%) (Auto) 11 0-12 % Eosinophils (%) (Auto) 2 0-10 % Basophils (%) (Auto) 1 0-10 % Neutrophils # (Auto) 3.4 1.8-7.8 10^3/uL Lymphocytes # (Auto) 1.3 1.0-4.0 10^3/uL Monocytes # (Auto) 0.6 0.0-1.0 10^3/uL Eosinophils # (Auto) 0.1 0.0-0.3 10^3/uL Basophils # (Auto) 0.1 0.0-0.1 10^3/uL Immature Granulocyte # (Auto) 0.0 0.0-0.1 10^3/uL Sodium Level 138 135-145 MMOL/L Potassium Level 6.1 H 3.6-5.0 MMOL/L Chloride Level 104 98-107 MMOL/L Carbon Dioxide Level 24 21-32 MMOL/L Anion Gap 10 5-14 MMOL/L Blood Urea Nitrogen 14 7-18 MG/DL Creatinine 0.65 0.60-1.30 MG/DL Estimat Glomerular Filtration Rate 86 BUN/Creatinine Ratio 22 Glucose Level 121 H 70-105 MG/DL Calcium Level 9.0 8.5-10.1 MG/DL Corrected Calcium 9.2 8.5-10.1 MG/DL Total Bilirubin 0.4 0.1-1.0 MG/DL Aspartate Amino Transf (AST/SGOT) 37 H 5-34 U/L Alanine Aminotransferase (ALT/SGPT) 5 0-55 U/L Alkaline Phosphatase 79 40-136 U/L Total Protein 6.7 6.4-8.2 GM/DL Albumin 3.8 3.2-4.5 GM/DL Lipase 25 8-78 U/L My Orders Orders - LIZZY STARK MD Comprehensive Metabolic Panel (11/30/21 09:36) Lipase (11/30/21 09:36) Ua Culture If Indicated (11/30/21 09:36) Ed Iv/Invasive Line Start (11/30/21 09:36) Cbc With Automated Diff (11/30/21 09:36) Ct Abdomen/Pelvis W (11/30/21 09:57) Iohexol Injection (Omnipaque 350 Mg/Ml 1 (11/30/21 10:15) Received Contrast (Hold Metformin- Contr (11/30/21 10:15) Sodium Chloride Flush (Catheter Flush Sy (11/30/21 10:15) Ns (Ivpb) (Sodium Chloride 0.9% Ivpb Bag (11/30/21 10:15) Medications Given in ED Current Medications Medications Dose Ordered Sig/Isaiah Route Start Time Stop Time Status Last Admin Dose Admin Iohexol 100 ml ONCE ONCE IV 11/30/21 10:15 11/30/21 10:16 DC 11/30/21 10:40 100 ML Sodium Chloride 10 ml NEEDED PRN IV 11/30/21 10:15 11/30/21 12:08 DC 11/30/21 10:40 10 ML Sodium Chloride 100 ml ONCE ONCE IV 11/30/21 10:15 11/30/21 10:16 DC 11/30/21 10:40 100 ML Vital Signs/I&O 11/30/21 11/30/21 11/30/21 09:38 10:56 11:55 Temp 36.5 36.8 Pulse 67 61 Resp 16 17 B/P (MAP) 185/93 (123) 179/72 Pulse Ox 99 100 O2 Delivery Room Air Room Air Room Air Blood Pressure Mean: 123 Progress Progress Note #1: Progress Note With her having normal labs yesterday will compare to see if there is any change today. CT scan of the abdomen and pelvis with IV contrast to look for blockage, mass, colitis, diverticulitis, pyelonephritis. UA to look for signs of infection. Progress Note #2: Progress Note Labs appear stable from once done on the first other than she did have hemolysis of the chemistry. Her CT scan appeared stable or improved from previous scan in August. No acute process to account for her increased symptoms. When reviewing results with the patient she stated that she felt it was related to stress and anxiety from being upset with her and daughter. Counseled to stay well-hydrated and continue on her regular medicines. Follow-up through her regular provider for continued concerns Diagnostic Imaging Diagonstic Imaging: CT Plain Films/CT/US/NM/MRI: abdomen, pelvis Comments NAME: [facility]IRSO [facility] REC#: [id number] PT STATUS: REG ER : 1935 PHYSICIAN: LIZZY STARK MD ADMIT DATE: 11/30/21/ER FS Draft Date of Exam:11/30/21 CT ABDOMEN/PELVIS W PROCEDURE: CT abdomen and pelvis with contrast. TECHNIQUE: Multiple contiguous axial images were obtained through the abdomen and pelvis after administration of intravenous contrast. Auto Exposure Controls were utilized during the CT exam to meet ALARA standards for radiation dose reduction. All CT scans use one or more of the following dose optimizing techniques: automated exposure control, MA and/or KvP adjustment based on patient size and exam type or iterative reconstruction. INDICATION: Upper abdominal pain in patient with colon cancer. COMPARISON: 08/07/2021 Similar to the previous study, there is a dominant cyst with peripheral calcification along the anterior margin of the liver which likely involves the medial segment of the left hepatic lobe. Additional presumed cysts are also seen in the liver parenchyma. The exophytic probable thick-walled cystic nodule along the inferior posterior aspect of the right hepatic lobe now measures 1.1 cm in diameter compared with 1.2 cm on the previous study. There is also mild focal low density within the parenchyma posterior and inferior to the right lobe portal venous branch which was present on the previous study. Gallbladder is surgically absent. There is no evidence of pancreatic or adrenal gland abnormality. Tiny low-density focus within the medial spleen is stable and there are multiple cortical cysts involving the kidneys with the largest in the lower pole of the left kidney reaching a maximum of approximately 6 cm in diameter. There is mild aortoiliac atherosclerotic calcification. Surgical findings of right hemicolectomy are noted. There is no evidence of pathologically enlarged adenopathy. No organized fluid collection is seen elsewhere in the abdomen or pelvis. Unopacified urinary bladder has a normal appearance. IMPRESSION: Generally stable CT appearance of the abdomen and pelvis. The target nodular focus along the inferior right hepatic lobe is stable or slightly decreased in size. No new abnormality or adverse change is appreciated. Dictated on workstation # [id number] Dict: 11/30/21 1057 Trans: 11/30/21 1107 [facility] [id number] Interpreted by: BARBRA VÁZQUEZ MD Electronically signed by: Reviewed: Reviewed by Me Departure Impression Primary Impression: Upper abdominal pain, unspecified Additional Impression: Stress Disposition: 01 HOME, SELF-CARE Condition: Stable Departure-Patient Inst. Decision time for Depature: 11:49 Referrals: CAROL AVINA MD (PCP) Primary Care Physician Patient Instructions: Abdominal Pain, Adult ED, Stress Add. Discharge Instructions: Stay well hydrated and drink plenty of fluids. Follow up with clinic for continued concerns. Your blood work and CT scan of your abdomen and pelvis are stable and not showing any new or concerning problems All discharge instructions reviewed with patient and/or family. Voiced understanding. LIZZY STARK MD Nov 30, 2021 10:31
[2021-11-30 10:47] LABS: BASOPHILS # (AUTO) 0.1 10^3/uL (0.0-0.1); BASOPHILS % (AUTO) 1 % (0-10); EOSINOPHILS # (AUTO) 0.1 10^3/uL (0.0-0.3); EOSINOPHILS % (AUTO) 2 % (0-10); HEMATOCRIT 38 % (35-52); HEMOGLOBIN 12.6 g/dL (11.5-16.0); LYMPHOCYTES # (AUTO) 1.3 10^3/uL (1.0-4.0); LYMPHOCYTES % (AUTO) 23 % (12-44); MEAN CORPUSCULAR HEMOGLOBIN 28 pg (25-34); MEAN CORPUSCULAR HGB CONC 33 g/dL (32-36); MEAN CORPUSCULAR VOLUME 85 fL (80-99); MEAN PLATELET VOLUME 11.2 fL (9.0-12.2); MONOCYTES # (AUTO) 0.6 10^3/uL (0.0-1.0); MONOCYTES % (AUTO) 11 % (0-12); NEUTROPHILS # (AUTO) 3.4 10^3/uL (1.8-7.8); NEUTROPHILS % (AUTO) 62 % (42-75); PLATELET COUNT 225 10^3/uL (130-400); WHITE BLOOD COUNT 5.5 10^3/uL (4.3-11.0)
--- NOTE | 2021-11-30 11:08 | Diagnostic Imaging Report ---
PROCEDURE: CT abdomen and pelvis with contrast. TECHNIQUE: Multiple contiguous axial images were obtained through the abdomen and pelvis after administration of intravenous contrast. Auto Exposure Controls were utilized during the CT exam to meet ALARA standards for radiation dose reduction. All CT scans use one or more of the following dose optimizing techniques: automated exposure control, MA and/or KvP adjustment based on patient size and exam type or iterative reconstruction. INDICATION: Upper abdominal pain in patient with colon cancer. COMPARISON: 08/07/2021 Similar to the previous study, there is a dominant cyst with peripheral calcification along the anterior margin of the liver which likely involves the medial segment of the left hepatic lobe. Additional presumed cysts are also seen in the liver parenchyma. The exophytic probable thick-walled cystic nodule along the inferior posterior aspect of the right hepatic lobe now measures 1.1 cm in diameter compared with 1.2 cm on the previous study. There is also mild focal low density within the parenchyma posterior and inferior to the right lobe portal venous branch which was present on the previous study. Gallbladder is surgically absent. There is no evidence of pancreatic or adrenal gland abnormality. Tiny low-density focus within the medial spleen is stable and there are multiple cortical cysts involving the kidneys with the largest in the lower pole of the left kidney reaching a maximum of approximately 6 cm in diameter. There is mild aortoiliac atherosclerotic calcification. Surgical findings of right hemicolectomy are noted. There is no evidence of pathologically enlarged adenopathy. No organized fluid collection is seen elsewhere in the abdomen or pelvis. Unopacified urinary bladder has a normal appearance. IMPRESSION: Generally stable CT appearance of the abdomen and pelvis. The target nodular focus along the inferior right hepatic lobe is stable or slightly decreased in size. No new abnormality or adverse change is appreciated. Dictated by: Dictated on workstation # [id number]
[2021-11-30 11:15] LABS: POTASSIUM 6.1 MMOL/L (3.6-5.0)
[2021-11-30 11:16] LABS: ALBUMIN 3.8 GM/DL (3.2-4.5); BILIRUBIN,TOTAL 0.4 MG/DL (0.1-1.0); CREATININE SERUM 0.65 MG/DL (0.60-1.30); TOTAL PROTEIN 6.7 GM/DL (6.4-8.2)
[2021-11-30 11:55] VITALS: BP 179/72
== END 2021-11-30 11:55 | disposition home or self-care (01) ==
LOC: EDUNIT# 09:31 → ER FS 09:32
DX: R10.84 Generalized abdominal pain (principal); F43.9 Reaction to severe stress, unspecified; Z90.49 Acquired absence of other specified parts of digestive tract
CPT/HCPCS: 36415; 74177; 80053; 81000; 83690; 85025; Q9967

== ENCOUNTER 2021-12-19 20:21 | Emergency (ER) | payer MEDICARE ==
[2021-12-19] MEDS ORDERED: ONDANSETRON 4 MG/2 ML (SDV) Z0FRAN IVP ONE (20:45)
--- NOTE | 2021-12-19 21:06 | Diagnostic Imaging Report ---
EXAMINATION: Lumbosacral spine 2 or 3 views HISTORY: Back pain COMPARISON: None available. FINDINGS: CORRELATION is made to a CT from 11/30/2021 FINDINGS: There is a compression fracture at L1 with approximately 20% loss of height along the superior endplate. This is new since the recent CT, therefore considered acute. There is minimal grade 1 anterolisthesis at L4-L5. Remaining alignment is preserved. There is facet hypertrophy at L4-L5 and L5-S1. There is intervertebral disc space narrowing and vacuum phenomenon at the L5-S1 level. Mild osteopenia is noted. IMPRESSION: 1. New compression fracture at L1 since the CT from 11/30/2021. Otherwise, chronic degenerative findings noted. Dictated by: Dictated on workstation # [id number]
--- NOTE | 2021-12-19 21:13 | ED Back Pain ---
General Chief Complaint: Back Problems Stated Complaint: FALL Nursing Triage Note: Pt brought in by ems after a fall at home. Pt states she slid out of chair to the floor. states he was unaware that she fell and thought she fell a couple of days ago. Pt is oriented to person and place. Pt is complaining of mid/lower back pain. Pt was given 4mg Zofran and 50mcg of Fentanyl en route to the ED Source of Information: Patient, Family Exam Limitations: No Limitations, Other (Dementia) History of Present Illness Date Seen by Provider: Dec 19, 2021 Time Seen by Provider: 20:00 Initial Comments Patient is an 86-year-old female with history of fall in the kitchen 2 days ago presents with diffuse low mid back pain. Patient did not hit her head no reported loss of consciousness. Pain is nonradiating. No extremity weakness or loss of sensation. called EMS and patient was given 50 mcg of fentanyl on route. She is currently pain-free. Denies nausea vomiting fevers chills sweats. No other acute symptoms or complaints. History of dementia. Additional history obtained from the patient's spouse and EMS. Location: Lumbar Spine Timing/Duration: 1-2 Days Severity: Moderate Pain/Injury Location: Back Radiation: Other Method of Injury: Other Modifying Factors: Improves With Other Associated Symptoms: other Allergies and Home Medications Allergies Coded Allergies: No Known Drug Allergies (Unverified , 07/28/19) Patient Home Medication List Home Medication List Reviewed: Yes Aspirin (Aspirin EC) 81 Mg Tablet.dr, 81 MG PO DAILY, (Reported) Entered as Reported by: DARYL PURVIS on 11/11/20 1542 Atenolol (Atenolol) 50 Mg Tablet, 50 MG PO BID, (Reported) Entered as Reported by: WANDA MARION on 07/28/19 1313 Carbidopa/Levodopa (Carbidopa-Levodopa 10-100 Tab) 1 Each Tablet, 2 TAB PO TID, (Reported) Entered as Reported by: WANDA MARION on 07/28/19 1313 Lovastatin (Lovastatin) 10 Mg Tablet, 10 MG PO HS, (Reported) Entered as Reported by: WANDA MARION on 07/28/19 1313 Olmesartan Medoxomil (Benicar) 20 Mg Tablet, 20 MG PO DAILY, (Reported) Entered as Reported by: DARYL PURVIS on 11/11/20 1542 Review of Systems Constitutional: see HPI EENTM: see HPI Respiratory: see HPI Cardiovascular: see HPI Gastrointestinal: see HPI Genitourinary: see HPI Musculoskeletal: see HPI Skin: see HPI Psychiatric/Neurological: See HPI Past Becqpaq-Awjxlg-Gqrtfv Hx Patient Social History Tobacco Use?: No Use of E-Cig and/or Vaping dev: No Substance use?: No Alcohol Use?: No Pt feels they are or have been: No Immunizations Up To Date First/Initial COVID19 Vaccinat: Unknown Second COVID19 Vaccination Alex: Unknown Third COVID19 Vaccination Date: YES Seasonal Allergies Seasonal Allergies: No Past Medical History Surgery/Hospitalization HX: Colon cancer, hysterectomy, cholecystectomy, hypertension, Parkinson's Surgeries: Yes Gallbladder, Hysterectomy Respiratory: No Cardiac: Yes Hypertension 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 oz. kg; 24.00 BMI Method: General Appearance: No Apparent Distress Back: No CVA Tenderness, Decreased Range of Motion, Muscle Spasm, Other (diffuse mid low back tendernss to palpation) Progress/Results/Core Measures Results/Orders My Orders Orders - JERRELL DAHL DO Ondansetron Injection (Zofran Injectio (12/19/21 20:45) Lumbar Spine 2 Or 3 View (12/19/21 20:35) Medications Given in ED Current Medications Medications Dose Ordered Sig/Isaiah Route Start Time Stop Time Status Last Admin Dose Admin Ondansetron HCl 4 mg ONCE ONCE IVP 12/19/21 20:45 12/19/21 20:46 DC 12/19/21 20:47 4 MG Vital Signs/I&O 12/19/21 20:21 Temp 36.9 Pulse 75 Resp 18 B/P (MAP) 181/83 (115) Pulse Ox 99 O2 Delivery Room Air Blood Pressure Mean: 115 Departure Communication (Admissions) X-ray lumbar spine: L1 compression fracture loss of 20% of superior endplate height per radiology report Patient with new compression fracture of superior endplate of L1. Pain-free in the ED. Findings reviewed with patient and patient's spouse. We will continue supportive care with PCP follow-up for further management. Impression Primary Impression: Traumatic compression fracture of L1 vertebra Disposition: HOME, SELF-CARE Condition: Stable Departure-Patient Inst. Decision time for Depature: 21:19 Referrals: CAROL AVINA MD (PCP/Family) Primary Care Physician Patient Instructions: Vertebral Compression Fracture ED Add. Discharge Instructions: Rowan was evaluated in the emergency department for low back pain and injury. X-rays were performed and show a 20% compression fracture of the L1 vertebra. Please take hydrocodone and Flexeril as needed for pain. Follow-up with your PCP in 2 to 3 days for reevaluation. Return to the ED if new or worsening symptoms. All discharge instructions reviewed with patient and/or family. Voiced understanding. Scripts Cyclobenzaprine HCl (Cyclobenzaprine HCl) 10 Mg Tablet 10 MG PO TID, #21 TAB Prov: JERRELL DAHL DO 12/19/21 Hydrocodone/Acetaminophen (Hydrocodone-Acetamin 5-325 mg) 5 Mg-325 Mg Tablet 1 TAB PO Q4H PRN for PAIN-MODERATE (5-7), #20 TAB Prov: JERRELL DAHL DO 12/19/21 JERRELL DAHL DO Dec 19, 2021 21:13
[2021-12-19] MEDS ORDERED: ACHD5005 PO (21:22)
[2021-12-19] MEDS ORDERED: CYCL10TA25 PO (21:22)
[2021-12-19 21:25] VITALS: BP 170/71
== END 2021-12-19 21:52 | disposition home or self-care (01) ==
LOC: EDUNIT# 20:21 → ER FS 20:22
DX: S32.019A Unspecified fracture of first lumbar vertebra, initial encounter for closed fracture (principal); W18.30XA Fall on same level, unspecified, initial encounter; Y92.090 Kitchen in other non-institutional residence as the place of occurrence of the external cause
CPT/HCPCS: 72100

== ENCOUNTER 2022-02-19 14:02 | Emergency (ER) | payer MEDICARE ==
[~2022-02-19] VITALS: Ht 162.5 cm; Wt 65.7 kg
[~2022-02-19 14:02] MED LIST changes: +ACHD5005 PO; +CYCL10TA25 PO
--- NOTE | 2022-02-19 14:26 | ED GI ---
General Chief Complaint: Abdominal/GI Problems Stated Complaint: NAUSEA, DIARRHEA, NOT BEEN ABLE TO EAT Nursing Triage Note: PT TO [facility] 5 WITH CC OF DIARRHEA, NAUSEA AND LOWER ADB PAIN SINCE THIS AFTERNOON. PT STATES "THIS HAS HAPPENED BEFORE." PT A&OX4 Source of Information: Patient Exam Limitations: No Limitations History of Present Illness Date Seen by Provider: Feb 19, 2022 Time Seen by Provider: 14:26 Initial Comments To ER by private vehicle with reports of periumbilical abdominal pain that started about 20 minutes ago. She had diarrhea as well. Poor historian. History of dementia, anemia, hypertension, hepatic flexure mass found on October 2020 colonoscopy, biopsy-proven colon adenocarcinoma status post resection. Timing/Duration: 1-3 Hours Severity/Quality: Moderate Location: Periumbilical Radiation: No Radiation Activities at Onset: None Associated Symptoms: Denies Symptoms Allergies and Home Medications Allergies Coded Allergies: No Known Drug Allergies (Unverified , 07/28/19) Patient Home Medication List Home Medication List Reviewed: Yes Aspirin (Aspirin EC) 81 Mg Tablet.dr, 81 MG PO DAILY, (Reported) Entered as Reported by: DARYL PURVIS on 11/11/20 154 Atenolol (Atenolol) 50 Mg Tablet, 50 MG PO BID, (Reported) Entered as Reported by: WANDA MARION on 07/28/19 131 Carbidopa/Levodopa (Carbidopa-Levodopa 10-100 Tab) 1 Each Tablet, 2 TAB PO TID, (Reported) Entered as Reported by: WANDA MARION on 07/28/19 131 Cyclobenzaprine HCl (Cyclobenzaprine HCl) 10 Mg Tablet, 10 MG PO TID Prescribed by: JERRELL DAHL on 12/19/212121 Hydrocodone/Acetaminophen (Hydrocodone-Acetamin 5-325 mg) 5 Mg-325 Mg Tablet, 1 TAB PO Q4H PRN for PAIN-MODERATE (5-7) Prescribed by: JERRELL DAHL on 12/19/212121 Lovastatin (Lovastatin) 10 Mg Tablet, 10 MG PO HS, (Reported) Entered as Reported by: WANDA MARION on 07/28/19 1313 Olmesartan Medoxomil (Benicar) 20 Mg Tablet, 20 MG PO DAILY, (Reported) Entered as Reported by: DARYL PURVIS on 11/11/20 1542 Review of Systems Review of Systems Constitutional: see HPI EENTM: No Symptoms Reported Respiratory: No Symptoms Reported Cardiovascular: No Symptoms Reported Gastrointestinal: See HPI, Abdominal Pain Genitourinary: No Symptoms Reported Musculoskeletal: no symptoms reported Skin: no symptoms reported Psychiatric/Neurological: No Symptoms Reported Endocrine: No Symptoms Reported Hematologic/Lymphatic: No Symptoms Reported Past Gjgdqgw-Wugdmm-Nzagvi Hx Immunizations Up To Date First/Initial COVID19 Vaccinat: Unknown Second COVID19 Vaccination Alex: Unknown Third COVID19 Vaccination Date: YES Seasonal Allergies Seasonal Allergies: No Past Medical History Surgery/Hospitalization HX: Colon cancer, hysterectomy, cholecystectomy, hypertension, Parkinson's Surgeries: Yes Gallbladder, Hysterectomy Respiratory: No Cardiac: Yes Hypertension Neurological: Yes Dementia, Parkinson's Disease [employer]ESS History: Hysterectomy Genitourinary: No Gastrointestinal: No Musculoskeletal: No Endocrine: No HEENT: No Cancer: Yes Colon Psychosocial: No Integumentary: No Blood Disorders: No Family Medical History Heart Disease, Cancer, Diabetes Physical Exam Vital Signs Vital Signs - First Documented 02/19/22 14:10 Temp 36.6 Pulse 71 Resp 18 B/P (MAP) 152/84 (106) Pulse Ox 99 O2 Delivery Room Air Capillary Refill : Less Than 3 Seconds Height/Weight/BMI Height: '" Weight: lbs. oz. kg; 24.00 BMI Method: General Appearance: WD/WN, no apparent distress HEENT: PERRL/EOMI, normal ENT inspection Neck: non-tender, full range of motion Respiratory: normal breath sounds, no respiratory distress, no accessory muscle use Gastrointestinal: normal bowel sounds, soft, tenderness, other (Normal bowel sounds. Had a bowel movement here, diarrhea.) Extremities: normal range of motion, non-tender Neurologic/Psychiatric: alert, normal mood/affect, oriented x 3 Skin: normal color, warm/dry Progress/Results/Core Measures Results/Orders Lab Results Laboratory Tests Test 02/19/22 15:05 Range/Units White Blood Count 5.3 4.3-11.0 10^3/uL Red Blood Count 5.03 3.80-5.11 10^6/uL Hemoglobin 13.9 11.5-16.0 g/dL Hematocrit 43 35-52 % Mean Corpuscular Volume 85 80-99 fL Mean Corpuscular Hemoglobin 28 25-34 pg Mean Corpuscular Hemoglobin Concent 33 32-36 g/dL Red Cell Distribution Width 13.5 10.0-14.5 % Platelet Count 254 130-400 10^3/uL Mean Platelet Volume 9.8 9.0-12.2 fL Immature Granulocyte % (Auto) 0 % Neutrophils (%) (Auto) 57 42-75 % Lymphocytes (%) (Auto) 29 12-44 % Monocytes (%) (Auto) 11 0-12 % Eosinophils (%) (Auto) 1 0-10 % Basophils (%) (Auto) 1 0-10 % Neutrophils # (Auto) 3.0 1.8-7.8 X 10^3 Lymphocytes # (Auto) 1.5 1.0-4.0 X 10^3 Monocytes # (Auto) 0.6 0.0-1.0 X 10^3 Eosinophils # (Auto) 0.1 0.0-0.3 10^3/uL Basophils # (Auto) 0.0 0.0-0.1 10^3/uL Immature Granulocyte # (Auto) 0.0 0.0-0.1 10^3/uL Sodium Level 139 135-145 MMOL/L Potassium Level 3.5 L 3.6-5.0 MMOL/L Chloride Level 103 98-107 MMOL/L Carbon Dioxide Level 23 21-32 MMOL/L Anion Gap 13 5-14 MMOL/L Blood Urea Nitrogen 13 7-18 MG/DL Creatinine 0.82 0.60-1.30 MG/DL Estimat Glomerular Filtration Rate 69 BUN/Creatinine Ratio 16 Glucose Level 115 H 70-105 MG/DL Calcium Level 9.6 8.5-10.1 MG/DL Corrected Calcium 9.8 8.5-10.1 MG/DL Total Bilirubin 0.7 0.1-1.0 MG/DL Aspartate Amino Transf (AST/SGOT) 18 5-34 U/L Alanine Aminotransferase (ALT/SGPT) 9 0-55 U/L Alkaline Phosphatase 128 40-136 U/L Total Protein 6.9 6.4-8.2 GM/DL Albumin 3.8 3.2-4.5 GM/DL Lipase 16 8-78 U/L My Orders Orders - CAMMIE EWING VAMPER Cbc With Automated Diff (02/19/22 14:20) Comprehensive Metabolic Panel (02/19/22 14:20) Lipase (02/19/22 14:20) Ua Culture If Indicated (02/19/22 14:20) Ct Abdomen/Pelvis Wo (02/19/22 14:20) Fentanyl Inj (Sublimaze Injection) (02/19/22 14:30) Ondansetron Injection (Zofran Injectio (02/19/22 15:00) Loperamide Tablet (Imodium Tablet) (02/19/22 15:45) Medications Given in ED Current Medications Medications Dose Ordered Sig/Isaiah Route Start Time Stop Time Status Last Admin Dose Admin Fentanyl Citrate 25 mcg ONCE ONCE IVP 02/19/22 14:30 02/19/22 14:31 DC 02/19/22 15:13 25 MCG Loperamide HCl 4 mg ONCE ONCE PO 02/19/22 15:45 02/19/22 15:46 DC 02/19/22 15:47 4 MG Ondansetron HCl 4 mg ONCE ONCE IVP 02/19/22 15:00 02/19/22 15:01 DC 02/19/22 15:13 4 MG Vital Signs/I&O 02/19/22 14:10 Temp 36.6 Pulse 71 Resp 18 B/P (MAP) 152/84 (106) Pulse Ox 99 O2 Delivery Room Air Blood Pressure Mean: 106 Departure Communication (Admissions) NAME: TIRSO SAMSON [facility] REC#: [id number] PT STATUS: REG ER : 1935 PHYSICIAN: CAMMIE EWING APRN ADMIT DATE: 02/19/22/ER Draft Date of Exam:02/19/22 CT ABDOMEN/PELVIS WO CLINICAL INDICATION: Patient with diarrhea, nausea, and lower abdominal pain since this afternoon. Patient states this has happened before. Patient with history of hysterectomy. EXAM: CT exam of the abdomen and pelvis is performed without IV or oral contrast using stone protocol. Coronal and sagittal reformatted images were created. Auto Exposure Controls were utilized during the CT exam to meet ALARA standards for radiation dose reduction. COMPARISONS: CT scan of the abdomen and pelvis with contrast dated 11/30/2021. FINDINGS: There is mild atelectasis involving both lung bases. There is enthesopathy involving the ischium. There are hypertrophic spurs involving the lumbar spine and lower lumbar spine facet arthropathy. There are degenerative spurs involving the visualized lower thoracic spine. There is no significant change to the low-density areas involving the liver. Stable low-density areas along the surface of the left lobe of the liver dome region and inferior aspect of the right lobe of liver. The spleen, pancreas and adrenal glands are unremarkable. Gallbladder is surgically absent. Bilateral renal cysts are seen which have not significantly changed. There are no renal stones or mass seen. There is no hydronephrosis. There is small amount of fluid in the bladder. There is no interval significant abnormality involving the bladder. There is no intra-abdominal free air or free fluid. There is no lymphadenopathy. There is interval development of wall thickening involving the rectum with adjacent fat stranding. There is no adjacent fluid collection. There is no intestinal obstruction. Again seen postop changes with right colonic resection and anastomosis. The extra-abdominal and extrapelvic soft tissue structures are unremarkable. IMPRESSION: 1: There is interval development of wall thickening and adjacent fat stranding in the region of the rectum. There is no measurable mass. These findings may be related to proctitis/colitis. There is no adjacent fluid collection. 2: The remainder of this exam is stable with no other interval acute abnormality. Dictated on workstation # [id number] Dict: 02/19/22 1533 Trans: 02/19/22 1543 [id number] [id number] Interpreted by: MANFRED TORRES MD Electronically signed by: Impression Primary Impression: Proctitis Disposition: 01 HOME, SELF-CARE Condition: Stable Departure-Patient Inst. Decision time for Depature: 16:21 Referrals: CAROL AVINA MD (PCP/Family) Primary Care Physician Patient Instructions: Proctitis Add. Discharge Instructions: There is some mild inflammation around the rectum. Could be consistent with a proctitis. Take the antibiotics as directed. Return to ER for any concerns. Follow-up with your doctor next week. All discharge instructions reviewed with patient and/or family. Voiced understanding. Scripts Ciprofloxacin HCl (Ciprofloxacin HCl) 250 Mg Tablet 250 MG PO BID, #10 TAB Prov: CAMMIE EWING APRN 02/19/22 Metronidazole (Metronidazole) 500 Mg Tablet 500 MG PO TID, #14 TAB 0 Refills Prov: CAMMIE EWING APRN 02/19/22 CAMMIE EWING APRN Feb 19, 2022 14:26
[2022-02-19] MEDS ORDERED: fentaNYL INJ 100 MCG/2 ML AMP IVP ONE (14:30)
[2022-02-19] MEDS ORDERED: ONDANSETRON 4 MG/2 ML (SDV) Z0FRAN IVP ONE (15:00)
[2022-02-19 15:13] LABS: BASOPHILS % (AUTO) 1 % (0-10); EOSINOPHILS # (AUTO) 0.1 10^3/uL (0.0-0.3); EOSINOPHILS % (AUTO) 1 % (0-10); HEMATOCRIT 43 % (35-52); HEMOGLOBIN 13.9 g/dL (11.5-16.0); LYMPHOCYTES # (AUTO) 1.5 X 10^3 (1.0-4.0); LYMPHOCYTES % (AUTO) 29 % (12-44); MEAN CORPUSCULAR HEMOGLOBIN 28 pg (25-34); MEAN CORPUSCULAR HGB CONC 33 g/dL (32-36); MEAN CORPUSCULAR VOLUME 85 fL (80-99); MEAN PLATELET VOLUME 9.8 fL (9.0-12.2); MONOCYTES # (AUTO) 0.6 X 10^3 (0.0-1.0); MONOCYTES % (AUTO) 11 % (0-12); NEUTROPHILS % (AUTO) 57 % (42-75); PLATELET COUNT 254 10^3/uL (130-400); WHITE BLOOD COUNT 5.3 10^3/uL (4.3-11.0)
[2022-02-19 15:25] LABS: ALBUMIN 3.8 GM/DL (3.2-4.5); POTASSIUM 3.5 MMOL/L (3.6-5.0)
[2022-02-19 15:26] LABS: CALCIUM 9.6 MG/DL (8.5-10.1)
[2022-02-19 15:28] LABS: TOTAL PROTEIN 6.9 GM/DL (6.4-8.2)
[2022-02-19 15:29] LABS: BILIRUBIN,TOTAL 0.7 MG/DL (0.1-1.0)
[2022-02-19 15:31] LABS: CREATININE SERUM 0.82 MG/DL (0.60-1.30)
--- NOTE | 2022-02-19 15:44 | Diagnostic Imaging Report ---
CLINICAL INDICATION: Patient with diarrhea, nausea, and lower abdominal pain since this afternoon. Patient states this has happened before. Patient with history of hysterectomy. EXAM: CT exam of the abdomen and pelvis is performed without IV or oral contrast using stone protocol. Coronal and sagittal reformatted images were created. Auto Exposure Controls were utilized during the CT exam to meet ALARA standards for radiation dose reduction. COMPARISONS: CT scan of the abdomen and pelvis with contrast dated 11/30/2021. FINDINGS: There is mild atelectasis involving both lung bases. There is enthesopathy involving the ischium. There are hypertrophic spurs involving the lumbar spine and lower lumbar spine facet arthropathy. There are degenerative spurs involving the visualized lower thoracic spine. There is no significant change to the low-density areas involving the liver. Stable low-density areas along the surface of the left lobe of the liver dome region and inferior aspect of the right lobe of liver. The spleen, pancreas and adrenal glands are unremarkable. Gallbladder is surgically absent. Bilateral renal cysts are seen which have not significantly changed. There are no renal stones or mass seen. There is no hydronephrosis. There is small amount of fluid in the bladder. There is no interval significant abnormality involving the bladder. There is no intra-abdominal free air or free fluid. There is no lymphadenopathy. There is interval development of wall thickening involving the rectum with adjacent fat stranding. There is no adjacent fluid collection. There is no intestinal obstruction. Again seen postop changes with right colonic resection and anastomosis. The extra-abdominal and extrapelvic soft tissue structures are unremarkable. IMPRESSION: 1: There is interval development of wall thickening and adjacent fat stranding in the region of the rectum. There is no measurable mass. These findings may be related to proctitis/colitis. There is no adjacent fluid collection. 2: The remainder of this exam is stable with no other interval acute abnormality. Dictated by: Dictated on workstation # [id number]
[2022-02-19] MEDS ORDERED: LOPERAMIDE 2 MG (IMODIUM) TABLET PO ONE (15:45)
[2022-02-19] MEDS ORDERED: METR-145 PO (16:22)
[2022-02-19] MEDS ORDERED: CIPR250T3 PO (16:22)
[2022-02-19 17:10] VITALS: BP 148/102
== END 2022-02-19 17:10 | disposition home or self-care (01) ==
LOC: EDUNIT# 14:02 → ER 14:06
DX: K62.89 Other specified diseases of anus and rectum (principal)
CPT/HCPCS: 36415; 74176; 80053; 83690; 85025

== ENCOUNTER 2022-03-01 13:21 | Outpatient (RCR) | payer MEDICARE ==
[~2022-03-01 13:21] MED LIST changes: +CIPR250T3 PO; +METR-145 PO; -OLME20TA21 PO; +OLME20TA75 PO
[2022-03-01 14:22] LABS: BASOPHILS # (AUTO) 0.1 10^3/uL (0.0-0.1); BASOPHILS % (AUTO) 2 % (0-10); EOSINOPHILS # (AUTO) 0.1 10^3/uL (0.0-0.3); EOSINOPHILS % (AUTO) 3 % (0-10); HEMATOCRIT 42 % (35-52); HEMOGLOBIN 13.6 g/dL (11.5-16.0); LYMPHOCYTES # (AUTO) 1.2 10^3/uL (1.0-4.0); LYMPHOCYTES % (AUTO) 27 % (12-44); MEAN CORPUSCULAR HEMOGLOBIN 28 pg (25-34); MEAN CORPUSCULAR HGB CONC 33 g/dL (32-36); MEAN CORPUSCULAR VOLUME 86 fL (80-99); MEAN PLATELET VOLUME 10.6 fL (9.0-12.2); MONOCYTES # (AUTO) 0.5 10^3/uL (0.0-1.0); MONOCYTES % (AUTO) 11 % (0-12); NEUTROPHILS # (AUTO) 2.6 10^3/uL (1.8-7.8); NEUTROPHILS % (AUTO) 58 % (42-75); PLATELET COUNT 199 10^3/uL (130-400); WHITE BLOOD COUNT 4.4 10^3/uL (4.3-11.0)
[2022-03-01 14:47] LABS: ALANINE AMINOTRANSFERASE < 6 U/L (0-55); ALBUMIN 3.9 GM/DL (3.2-4.5); ALKALINE PHOSPHATASE 109 U/L (40-136); BILIRUBIN,TOTAL 0.7 MG/DL (0.1-1.0); BUN/CREATININE RATIO 11; CALCIUM 9.6 MG/DL (8.5-10.1); CARBON DIOXIDE 27 MMOL/L (21-32); CHLORIDE 106 MMOL/L (98-107); CREATININE SERUM 1.03 MG/DL (0.60-1.30); GFR ESTIMATED 53; GLUCOSE 114 MG/DL (70-105); POTASSIUM 3.3 MMOL/L (3.6-5.0); SODIUM 142 MMOL/L (135-145); TOTAL PROTEIN 6.9 GM/DL (6.4-8.2)
== END 2022-03-30 | disposition home or self-care (01) ==
LOC: ONC 13:21
PROVIDERS: ATTEND Internal Medicine Hematology & Oncology
DX: C18.9 Malignant neoplasm of colon, unspecified (principal); D50.9 Iron deficiency anemia, unspecified
CPT/HCPCS: 80053; 82378; 85025; G0463; 36415; 99213

== ENCOUNTER 2022-05-31 14:47 | Outpatient (RCR) | payer MEDICARE ==
[2022-05-31 15:23] LABS: BASOPHILS # (AUTO) 0.1 10^3/uL (0.0-0.1); BASOPHILS % (AUTO) 1 % (0-10); BILIRUBIN,TOTAL 0.3 MG/DL (0.1-1.0); CALCIUM 9.3 MG/DL (8.5-10.1); CREATININE SERUM 0.75 MG/DL (0.60-1.30); EOSINOPHILS # (AUTO) 0.1 10^3/uL (0.0-0.3); EOSINOPHILS % (AUTO) 3 % (0-10); HEMATOCRIT 41 % (35-52); HEMOGLOBIN 13.2 g/dL (11.5-16.0); LYMPHOCYTES # (AUTO) 1.1 10^3/uL (1.0-4.0); LYMPHOCYTES % (AUTO) 22 % (12-44); MEAN CORPUSCULAR HEMOGLOBIN 28 pg (25-34); MEAN CORPUSCULAR HGB CONC 32 g/dL (32-36); MEAN CORPUSCULAR VOLUME 88 fL (80-99); MEAN PLATELET VOLUME 11.2 fL (9.0-12.2); MONOCYTES # (AUTO) 0.5 10^3/uL (0.0-1.0); MONOCYTES % (AUTO) 11 % (0-12); NEUTROPHILS # (AUTO) 3.2 10^3/uL (1.8-7.8); NEUTROPHILS % (AUTO) 62 % (42-75); PLATELET COUNT 176 10^3/uL (130-400); WHITE BLOOD COUNT 5.1 10^3/uL (4.3-11.0)
== END 2022-06-30 | disposition home or self-care (01) ==
LOC: ONC 14:47
PROVIDERS: ATTEND Internal Medicine Hematology & Oncology
DX: C18.9 Malignant neoplasm of colon, unspecified (principal); D50.9 Iron deficiency anemia, unspecified
CPT/HCPCS: 80053; 82378; 85025; G0463; 36415; 99213

== ENCOUNTER → 2022-09-21 | Outpatient (CLI) | payer MEDICARE ==
[~2022-09-21] MED LIST changes: +HOLD METFORMIN - RECEIVED CONTRAST 20 ML VIAL IV SCH; +IOHEXOL 350 MG/ML 100 ML (OMNIPAQUE 350) VIAL IV ONE; +NS 100 ML (IVPB) BAG IV ONE
--- NOTE | 2022-09-21 11:15 | Diagnostic Imaging Report ---
PROCEDURE: CT chest, abdomen, and pelvis with contrast. TECHNIQUE: Multiple contiguous axial images were obtained through the chest, abdomen, and pelvis after the administration of intravenous contrast. Auto Exposure Controls were utilized during the CT exam to meet ALARA standards for radiation dose reduction. INDICATION: Follow-up malignant neoplasm of the colon. Comparison is made with prior CT from 02/19/2022. CT CHEST: No axillary lymphadenopathy is detected. No mediastinal or hilar lymphadenopathy is detected. No pericardial or pleural fluid is detected. No pulmonary infiltrates, nodules or masses are detected. CT abdomen and pelvis: Low-attenuation lesions in the liver appear stable and may represent cysts. Gallbladder is surgically absent. There is no biliary ductal dilatation. Pancreas and spleen are unremarkable. No adrenal mass is detected. Kidneys contain multiple low-attenuation lesions, largest lower pole left kidney measuring 6 cm. There is no hydronephrosis. Aorta is nonaneurysmal. Bowel loops are normal caliber and appear nonobstructed. There is no free fluid or fluid collection. There are postsurgical changes involving bowel loops in the right abdomen. No definite abdominal or pelvic lymphadenopathy is detected. Bladder is unremarkable. Uterus appears to be surgically absent or atrophic. Bony structures are nonacute. IMPRESSION: 1. No evidence of thoracic, abdominal or pelvic lymphadenopathy or metastatic disease. 2. Hepatic and renal cysts. Dictated by: Dictated on workstation # [id number]
== END ==
LOC: RAD 09:18
PROVIDERS: ATTEND Internal Medicine Hematology & Oncology
DX: C18.9 Malignant neoplasm of colon, unspecified (principal); N28.1 Cyst of kidney, acquired; K76.89 Other specified diseases of liver
CPT/HCPCS: 71260; 74177

== ENCOUNTER 2022-09-27 11:04 | Outpatient (RCR) | payer MEDICARE ==
[2022-08-29 13:48] LABS: BASOPHILS # (AUTO) 0.1 10^3/uL (0.0-0.1); BASOPHILS % (AUTO) 1 % (0-10); EOSINOPHILS # (AUTO) 0.1 10^3/uL (0.0-0.3); EOSINOPHILS % (AUTO) 2 % (0-10); HEMATOCRIT 42 % (35-52); HEMOGLOBIN 13.7 g/dL (11.5-16.0); LYMPHOCYTES # (AUTO) 1.3 10^3/uL (1.0-4.0); LYMPHOCYTES % (AUTO) 27 % (12-44); MEAN CORPUSCULAR HEMOGLOBIN 28 pg (25-34); MEAN CORPUSCULAR HGB CONC 33 g/dL (32-36); MEAN CORPUSCULAR VOLUME 85 fL (80-99); MEAN PLATELET VOLUME 9.9 fL (9.0-12.2); MONOCYTES # (AUTO) 0.5 10^3/uL (0.0-1.0); MONOCYTES % (AUTO) 10 % (0-12); NEUTROPHILS # (AUTO) 2.9 10^3/uL (1.8-7.8); NEUTROPHILS % (AUTO) 60 % (42-75); PLATELET COUNT 228 10^3/uL (130-400); WHITE BLOOD COUNT 4.8 10^3/uL (4.3-11.0)
[2022-08-29 14:11] LABS: ALANINE AMINOTRANSFERASE < 6 U/L (0-55); ALBUMIN 3.9 GM/DL (3.2-4.5); ALKALINE PHOSPHATASE 82 U/L (40-136); BILIRUBIN,TOTAL 0.7 MG/DL (0.1-1.0); BUN/CREATININE RATIO 19; CALCIUM 9.7 MG/DL (8.5-10.1); CARBON DIOXIDE 27 MMOL/L (21-32); CHLORIDE 104 MMOL/L (98-107); CREATININE SERUM 0.83 MG/DL (0.60-1.30); GFR ESTIMATED 68; GLUCOSE 101 MG/DL (70-105); POTASSIUM 3.9 MMOL/L (3.6-5.0); SODIUM 140 MMOL/L (135-145); TOTAL PROTEIN 7.3 GM/DL (6.4-8.2)
[~2022-09-27 11:04] MED LIST changes: -HOLD METFORMIN - RECEIVED CONTRAST 20 ML VIAL IV SCH; -IOHEXOL 350 MG/ML 100 ML (OMNIPAQUE 350) VIAL IV ONE; -NS 100 ML (IVPB) BAG IV ONE
== END 2022-09-28 | disposition home or self-care (01) ==
LOC: ONC 11:04
PROVIDERS: ATTEND Internal Medicine Hematology & Oncology
DX: C18.9 Malignant neoplasm of colon, unspecified (principal)
CPT/HCPCS: 36415; 80053; 82378; 85025

== ENCOUNTER 2022-12-27 10:35 | Outpatient (RCR) | payer MEDICARE ==
[~2022-12-27 10:35] MED LIST changes: -LOSA100T57 PO; +LOSA100T58 PO
[2022-12-27 10:58] LABS: BASOPHILS # (AUTO) 0.1 10^3/uL (0.0-0.1); BASOPHILS % (AUTO) 1 % (0-10); EOSINOPHILS # (AUTO) 0.2 10^3/uL (0.0-0.3); EOSINOPHILS % (AUTO) 4 % (0-10); HEMATOCRIT 38 % (35-52); HEMOGLOBIN 12.5 g/dL (11.5-16.0); LYMPHOCYTES # (AUTO) 1.3 10^3/uL (1.0-4.0); LYMPHOCYTES % (AUTO) 31 % (12-44); MEAN CORPUSCULAR HEMOGLOBIN 28 pg (25-34); MEAN CORPUSCULAR HGB CONC 33 g/dL (32-36); MEAN CORPUSCULAR VOLUME 86 fL (80-99); MEAN PLATELET VOLUME 10.3 fL (9.0-12.2); MONOCYTES # (AUTO) 0.4 10^3/uL (0.0-1.0); MONOCYTES % (AUTO) 10 % (0-12); NEUTROPHILS # (AUTO) 2.2 10^3/uL (1.8-7.8); NEUTROPHILS % (AUTO) 54 % (42-75); PLATELET COUNT 175 10^3/uL (130-400)
[2022-12-27 11:09] LABS: ALBUMIN 3.9 GM/DL (3.2-4.5); CHLORIDE 109 MMOL/L (98-107); POTASSIUM 3.5 MMOL/L (3.6-5.0); SODIUM 142 MMOL/L (135-145)
[2022-12-27 11:10] LABS: CALCIUM 9.3 MG/DL (8.5-10.1)
[2022-12-27 11:11] LABS: GLUCOSE 98 MG/DL (70-105); TOTAL PROTEIN 6.4 GM/DL (6.4-8.2)
[2022-12-27 11:12] LABS: CARBON DIOXIDE 25 MMOL/L (21-32)
[2022-12-27 11:13] LABS: BILIRUBIN,TOTAL 0.7 MG/DL (0.1-1.0)
[2022-12-27 11:15] LABS: ALKALINE PHOSPHATASE 73 U/L (40-136); CREATININE SERUM 0.85 MG/DL (0.60-1.30); GFR ESTIMATED 66
[2022-12-27 11:16] LABS: BUN/CREATININE RATIO 14
[2022-12-27 11:18] LABS: ALANINE AMINOTRANSFERASE < 6 U/L (0-55)
== END 2022-12-28 ==
LOC: ONC 10:35
PROVIDERS: ATTEND Internal Medicine Hematology & Oncology
DX: C18.9 Malignant neoplasm of colon, unspecified (principal); D50.9 Iron deficiency anemia, unspecified; M54.9 Dorsalgia, unspecified; G89.29 Other chronic pain; I10 Essential (primary) hypertension; G20 Parkinson's disease; F02.A0 Dementia in other diseases classified elsewhere, mild, without behavioral disturbance, psychotic disturbance, mood disturbance, and anxiety
CPT/HCPCS: 36415; 80053; 82378; 85025

== ENCOUNTER 2023-01-16 14:33 | Emergency (ER) | payer MEDICARE ==
[~2023-01-16] VITALS: Ht 157.4 cm; Wt 45.0 kg
[2023-01-16 15:03] LABS: BASOPHILS # (AUTO) 0.1 10^3/uL (0.0-0.1); BASOPHILS % (AUTO) 1 % (0-10); EOSINOPHILS # (AUTO) 0.2 10^3/uL (0.0-0.3); EOSINOPHILS % (AUTO) 3 % (0-10); HEMATOCRIT 40 % (35-52); HEMOGLOBIN 13.1 g/dL (11.5-16.0); LYMPHOCYTES % (AUTO) 38 % (12-44); MEAN CORPUSCULAR HEMOGLOBIN 28 pg (25-34); MEAN CORPUSCULAR HGB CONC 33 g/dL (32-36); MEAN CORPUSCULAR VOLUME 85 fL (80-99); MEAN PLATELET VOLUME 10.3 fL (9.0-12.2); MONOCYTES # (AUTO) 0.6 10^3/uL (0.0-1.0); MONOCYTES % (AUTO) 12 % (0-12); NEUTROPHILS # (AUTO) 2.4 10^3/uL (1.8-7.8); NEUTROPHILS % (AUTO) 46 % (42-75); PLATELET COUNT 198 10^3/uL (130-400); WHITE BLOOD COUNT 5.2 10^3/uL (4.3-11.0)
[2023-01-16 15:15] LABS: ALBUMIN 4.1 GM/DL (3.2-4.5); ALKALINE PHOSPHATASE 98 U/L (40-136); BILIRUBIN,TOTAL 0.7 MG/DL (0.1-1.0); BUN/CREATININE RATIO 16; CALCIUM 9.1 MG/DL (8.5-10.1); CARBON DIOXIDE 22 MMOL/L (21-32); CHLORIDE 102 MMOL/L (98-107); GFR ESTIMATED 71; GLUCOSE 101 MG/DL (70-105); LIPASE 23 U/L (8-78); POTASSIUM 3.5 MMOL/L (3.6-5.0); SODIUM 138 MMOL/L (135-145); TOTAL PROTEIN 6.9 GM/DL (6.4-8.2)
[2023-01-16 15:16] LABS: ALANINE AMINOTRANSFERASE < 5 U/L (0-55)
--- NOTE | 2023-01-16 15:27 | ED GI ---
General Chief Complaint: Abdominal/GI Problems Stated Complaint: DIARRHEA Source of Information: Patient, Old Records History of Present Illness Date Seen by Provider: Jan 16, 2023 Time Seen by Provider: 14:37 Initial Comments 88-year-old female presenting by private vehicle with complaints of diarrhea and abdominal discomfort x1 hour. She states that she was in [place] with her and son. Her gets dialysis in [place]. She started feeling bad and her son drove her here to [place] to the emergency department rather than go to the emergency department in [place]. The son dropped her off and then went back to [place] since his father was still at dialysis. Patient does have dementia and is not able to provide much history. From review of her electronic medical record she has had multiple emergency department visits for similar complaints of diarrhea and abdominal discomfort. She has a history of dementia as well as adenocarcinoma of the colon. Patient denies having nausea, vomiting, pain with urination, blood in her stool, blood in her urine. She denies eating anything different to trigger her symptoms. She said that she had no control over the diarrhea when it came on. Timing/Duration: 1 Hour Severity/Quality: Mild, Other (Nonspecific discomfort) Location: Generalized Abdomen Radiation: No Radiation Activities at Onset: Rest Associated Symptoms: No Back Pain, No Chest Pain, No Diaphoresis, No Fever/Chills, No Fatigue, No Headache, No Heartburn, No Nausea/Vomiting, No Rash, No Shortness of Air, No Swelling/Mass in Abdomen, No Syncope, No Weakness Allergies and Home Medications Allergies Coded Allergies: No Known Drug Allergies (Unverified , 07/28/19) Patient Home Medication List Home Medication List Reviewed: Yes Aspirin (Aspirin EC) 81 Mg Tablet., 81 MG PO DAILY, (Reported) Entered as Reported by: DARYL PURVIS on 11/11/20 1542 Atenolol (Atenolol) 50 Mg Tablet, 50 MG PO BID, (Reported) Entered as Reported by: WANDA MARION on 07/28/19 1313 Carbidopa/Levodopa (Carbidopa-Levodopa 10-100 Tab) 1 Each Tablet, 2 TAB PO TID, (Reported) Entered as Reported by: WANDA MARION on 07/28/19 1313 Ciprofloxacin HCl (Ciprofloxacin HCl) 250 Mg Tablet, 250 MG PO BID Prescribed by: CAMMIE EWING on 02/19/22 1622 Cyclobenzaprine HCl (Cyclobenzaprine HCl) 10 Mg Tablet, 10 MG PO TID Prescribed by: JERRELL DAHL on 12/19/212121 Hydrocodone/Acetaminophen (Hydrocodone-Acetamin 5-325 mg) 5 Mg-325 Mg Tablet, 1 TAB PO Q4H PRN for PAIN-MODERATE (5-7) Prescribed by: JERRELL DAHL on 12/19/212121 Lovastatin (Lovastatin) 10 Mg Tablet, 10 MG PO HS, (Reported) Entered as Reported by: WANDA MARION on 07/28/19 1313 Metronidazole (Metronidazole) 500 Mg Tablet, 500 MG PO TID Prescribed by: CAMMIE EWING on 02/19/22 162 Olmesartan Medoxomil (Benicar) 20 Mg Tablet, 20 MG PO DAILY, (Reported) Entered as Reported by: DARYL PURVIS on 11/11/20 1542 Review of Systems Review of Systems Constitutional: No chills, No fever EENTM: No Symptoms Reported Respiratory: No Symptoms Reported Cardiovascular: No Symptoms Reported Gastrointestinal: See HPI Genitourinary: Denies Burning Musculoskeletal: no symptoms reported Skin: no symptoms reported Psychiatric/Neurological: See HPI Past Jpweoay-Cspzqi-Jbtcti Hx Patient Social History Tobacco Use?: No Use of E-Cig and/or Vaping dev: No Substance use?: No Alcohol Use?: No Pt feels they are or have been: No Immunizations Up To Date First/Initial COVID19 Vaccinat: no vacc Second COVID19 Vaccination Alex: Unknown Third COVID19 Vaccination Date: Unknown Seasonal Allergies Seasonal Allergies: No Past Medical History Surgery/Hospitalization HX: Colon cancer, hysterectomy, cholecystectomy, hypertension, Parkinson's Surgeries: Yes Gallbladder, Hysterectomy Respiratory: No Cardiac: Yes Hypertension Neurological: Yes Dementia, Parkinson's Disease 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 oz. kg; 24.00 BMI Method: General Appearance: WD/WN, no apparent distress Respiratory: chest non-tender, lungs clear, normal breath sounds Cardiovascular: normal peripheral pulses, regular rate, rhythm Gastrointestinal: non tender, soft, no pulsatile mass, abnormal bowel sounds (Hyperactive bowel sounds); No distended, No guarding, No rebound, No tenderness Rectal: deferred Extremities: normal range of motion, non-tender, normal capillary refill Neurologic/Psychiatric: alert; No oriented x 3 (Oriented to self) Skin: normal color, warm/dry Progress/Results/Core Measures Results/Orders Lab Results Laboratory Tests Test 01/16/23 14:48 Range/Units White Blood Count 5.2 4.3-11.0 10^3/uL Red Blood Count 4.70 3.80-5.11 10^6/uL Hemoglobin 13.1 11.5-16.0 g/dL Hematocrit 40 35-52 % Mean Corpuscular Volume 85 80-99 fL Mean Corpuscular Hemoglobin 28 25-34 pg Mean Corpuscular Hemoglobin Concent 33 32-36 g/dL Red Cell Distribution Width 13.7 10.0-14.5 % Platelet Count 198 130-400 10^3/uL Mean Platelet Volume 10.3 9.0-12.2 fL Immature Granulocyte % (Auto) 1 % Neutrophils (%) (Auto) 46 42-75 % Lymphocytes (%) (Auto) 38 12-44 % Monocytes (%) (Auto) 12 0-12 % Eosinophils (%) (Auto) 3 0-10 % Basophils (%) (Auto) 1 0-10 % Neutrophils # (Auto) 2.4 1.8-7.8 10^3/uL Lymphocytes # (Auto) 2.0 1.0-4.0 10^3/uL Monocytes # (Auto) 0.6 0.0-1.0 10^3/uL Eosinophils # (Auto) 0.2 0.0-0.3 10^3/uL Basophils # (Auto) 0.1 0.0-0.1 10^3/uL Immature Granulocyte # (Auto) 0.0 0.0-0.1 10^3/uL Sodium Level 138 135-145 MMOL/L Potassium Level 3.5 L 3.6-5.0 MMOL/L Chloride Level 102 98-107 MMOL/L Carbon Dioxide Level 22 21-32 MMOL/L Anion Gap 14 5-14 MMOL/L Blood Urea Nitrogen 13 7-18 MG/DL Creatinine 0.80 0.60-1.30 MG/DL Estimat Glomerular Filtration Rate 71 BUN/Creatinine Ratio 16 Glucose Level 101 70-105 MG/DL Calcium Level 9.1 8.5-10.1 MG/DL Corrected Calcium 9.0 8.5-10.1 MG/DL Total Bilirubin 0.7 0.1-1.0 MG/DL Aspartate Amino Transf (AST/SGOT) 15 5-34 U/L Alanine Aminotransferase (ALT/SGPT) < 5 0-55 U/L Alkaline Phosphatase 98 40-136 U/L Total Protein 6.9 6.4-8.2 GM/DL Albumin 4.1 3.2-4.5 GM/DL Lipase 23 8-78 U/L My Orders Orders - LIZZY STARK MD Comprehensive Metabolic Panel (01/16/23 14:50) Lipase (01/16/23 14:50) Ed Iv/Invasive Line Start (01/16/23 14:50) Cbc With Automated Diff (01/16/23 14:50) Ct Abdomen/Pelvis W (01/16/23 14:50) Iohexol Injection (Omnipaque 350 Mg/Ml 1 (01/16/23 15:30) Received Contrast (Hold Metformin- Contr (01/16/23 15:30) Ns (Ivpb) (Sodium Chloride 0.9% Ivpb Bag (01/16/23 15:30) Medications Given in ED Current Medications Medications Dose Ordered Sig/Isaiah Route Start Time Stop Time Status Last Admin Dose Admin Iohexol 100 ml ONCE ONCE IV 01/16/23 15:30 01/16/23 15:31 DC 01/16/23 15:33 75 ML Sodium Chloride 100 ml ONCE ONCE IV 01/16/23 15:30 01/16/23 15:31 DC 01/16/23 15:33 100 ML Vital Signs/I&O 01/16/23 01/16/23 14:45 16:04 Temp 36.7 36.7 Pulse 76 69 Resp 18 16 B/P (MAP) 149/102 (118) 188/75 Pulse Ox 99 99 O2 Delivery Room Air Room Air Progress Progress Note #1: Progress Note Potential diagnosis of chronic abdominal pain, recurrent diarrhea, ischemic colitis, diverticulitis, colitis, gastroenteritis. Obtain peripheral IV access and administer normal saline 1 L IV fluid bolus for hydration. Send labs for complete blood count, comprehensive metabolic profile, lipase and obtain a urine specimen. CT scan of the abdomen and pelvis with IV contrast to evaluate for acute pathology in the belly. Ordered stool studies if patient has diarrhea while here in the ED. She denies having any recent antibiotics but states that she does have dementia so she does not remember everything. Having an infection with C. difficile would be a possibility especially if she was undergoing any chemotherapy or on recent antibiotics. Progress Note #2: Time: 15:21 Progress Note Complete blood count shows normal white blood cell count of 5.2, hemoglobin 13.1. Her comprehensive metabolic profile did not show any acute electrolyte abnormalities to account for her complaint of diarrhea. Her potassium was 3.5 so at the lower limit of normal. BUN normal at 13 and creatinine 0.8. Her glucose was 101 and LFTs were normal and not elevated. 1544 on my personal interpretation and review of her CT scan of the abdomen and pelvis with IV contrast I did not appreciate any acute mass or ischemic changes. Patient reports that she was feeling better and thought that her stomach issues may have been because she had a disagreement with her daughter today. She states this has happened to her before. She has had no diarrhea here in the ED. Progress Note #3: Time: 15:49 Progress Note I reviewed the radiologist report on the CT scan of the abdomen and pelvis with IV contrast and they did not appreciate any acute process. Nothing to explain her complaint of abdominal discomfort and diarrhea. Patient has had no diarrhea while here in the ED. Her lab work does not show acute significant abnormality to account for her complaint. She is now voicing that she thinks her symptoms were brought on by stress from an argument and disagreement with her family. Will encourage fluids and rest and advised patient to follow-up with their primary care provider for continued concerns. Will try to contact family to see if they were available to come back and pick her up. When speaking with patient she now reports that she has been upset because her daughter that lives in [facility] does not get along with the patient. She feels that her daughter is trying to trick her in to moving to [place] to live with them there so she will get a discount on her rent and living expenses. Patient feels that was causing her to have abdominal discomfort and high blood pressure. Diagnostic Imaging Diagonstic Imaging: CT Plain Films/CT/US/NM/MRI: abdomen, pelvis Comments NAME: TIRSO [facility] REC#: [id number] PT STATUS: REG ER : 1935 PHYSICIAN: LIZZY STARK MD ADMIT DATE: 01/16/23/ER FS Draft Date of Exam:01/16/23 CT ABDOMEN/PELVIS W PROCEDURE: CT abdomen and pelvis with contrast. TECHNIQUE: Multiple contiguous axial images were obtained through the abdomen and pelvis after administration of intravenous contrast. Auto Exposure Controls were utilized during the CT exam to meet ALARA standards for radiation dose reduction. All CT scans use one or more of the following dose optimizing techniques: automated exposure control, MA and/or KvP adjustment based on patient size and exam type or iterative reconstruction. INDICATION: Diarrhea. Abdominal pain. COMPARISON: 09/21/2022. FINDINGS: Included portions of the lung bases are clear. CT ABDOMEN: Patient is status post previous partial right hemicolectomy and small bowel loops are nondilated. Benign-appearing bilateral renal and hepatic cysts are present. The kidneys, adrenal glands, spleen, pancreas, and liver have an otherwise normal CT appearance. There is no loculated fluid collection, free fluid, nor free air within the abdomen. No abnormal mesenteric or retroperitoneal adenopathy is seen. There is [id number] scattered calcified aortic and arterial atherosclerosis. Osseous structures show no acute abnormalities. CT PELVIS: Urinary bladder is unopacified. No calculi are seen within the urinary bladder. There is no loculated fluid collection, free fluid, or free air. No abnormal lymph nodes are seen. Osseous structures show no acute abnormalities. IMPRESSION: 1. No acute abnormality is seen within the abdomen or pelvis. Dictated on workstation # [id number] Dict: 01/16/23 1535 Trans: 01/16/23 1545 [id number] Interpreted by: JESSENIA BIRMINGHAM MD Electronically signed by: Reviewed: Reviewed by Me Departure Impression Primary Impression: Diarrhea Qualified Codes: R19.7 - Diarrhea, unspecified Disposition: 01 HOME, SELF-CARE Condition: Stable Departure-Patient Inst. Decision time for Depature: 15:50 Referrals: CAROL AVINA MD (PCP/Family) Primary Care Physician Patient Instructions: Diarrhea, Adult ED Add. Discharge Instructions: Try to stay well-hydrated and get plenty of rest. Continue to take your regular medications. Check back with your primary care provider for continued concerns or if your symptoms persist. All discharge instructions reviewed with patient and/or family. Voiced understanding. LIZZY STARK MD Jan 16, 2023 15:27
[2023-01-16] MEDS ORDERED: IOHEXOL 350 MG/ML 100 ML (OMNIPAQUE 350) VIAL IV ONE (15:30)
[2023-01-16] MEDS ORDERED: NS 100 ML (IVPB) BAG IV ONE (15:30)
[2023-01-16] MEDS ORDERED: HOLD METFORMIN - RECEIVED CONTRAST 20 ML VIAL IV SCH (15:30)
--- NOTE | 2023-01-16 15:45 | Diagnostic Imaging Report ---
PROCEDURE: CT abdomen and pelvis with contrast. TECHNIQUE: Multiple contiguous axial images were obtained through the abdomen and pelvis after administration of intravenous contrast. Auto Exposure Controls were utilized during the CT exam to meet ALARA standards for radiation dose reduction. All CT scans use one or more of the following dose optimizing techniques: automated exposure control, MA and/or KvP adjustment based on patient size and exam type or iterative reconstruction. INDICATION: Diarrhea. Abdominal pain. COMPARISON: 09/21/2022. FINDINGS: Included portions of the lung bases are clear. CT ABDOMEN: Patient is status post previous partial right hemicolectomy and small bowel loops are nondilated. Benign-appearing bilateral renal and hepatic cysts are present. The kidneys, adrenal glands, spleen, pancreas, and liver have an otherwise normal CT appearance. There is no loculated fluid collection, free fluid, nor free air within the abdomen. No abnormal mesenteric or retroperitoneal adenopathy is seen. There is [id number] scattered calcified aortic and arterial atherosclerosis. Osseous structures show no acute abnormalities. CT PELVIS: Urinary bladder is unopacified. No calculi are seen within the urinary bladder. There is no loculated fluid collection, free fluid, or free air. No abnormal lymph nodes are seen. Osseous structures show no acute abnormalities. IMPRESSION: 1. No acute abnormality is seen within the abdomen or pelvis. Dictated by: Dictated on workstation # [id number]
[2023-01-16 16:04] VITALS: BP 188/75
== END 2023-01-16 17:02 | disposition home or self-care (01) ==
LOC: ER FS 14:33 → EDUNIT# 14:33 → ER FS 17:02
DX: R19.7 Diarrhea, unspecified (principal); R10.84 Generalized abdominal pain; E87.6 Hypokalemia; F03.90 Unspecified dementia, unspecified severity, without behavioral disturbance, psychotic disturbance, mood disturbance, and anxiety; Z28.310 Unvaccinated for COVID-19; Z85.038 Personal history of other malignant neoplasm of large intestine; Z90.49 Acquired absence of other specified parts of digestive tract
CPT/HCPCS: 36415; 74177; 80053; 83690; 85025; Q9967

== ENCOUNTER 2023-02-08 13:21 | Emergency (ER) | payer MEDICARE ==
[~2023-02-08] VITALS: Ht 160 cm; Wt 66.0 kg
[2023-02-08 13:27] VITALS: BP 166/76
[2023-02-08] MEDS ORDERED: DICYCLOMINE 10 MG/ML 2 ML AMPULE IM STA (14:02)
[2023-02-08] MEDS ORDERED: PANTOPRAZOLE 40 MG (PROTONIX) VIAL IV STA (14:02)
[2023-02-08] MEDS ORDERED: NS IV 1000 ML 1,000 ML IV STA (14:02)
--- NOTE | 2023-02-08 14:10 | ED GI ---
General Chief Complaint: Abdominal/GI Problems Stated Complaint: GEN WEAKNESS Nursing Triage Note: Patient c/o upper Abd. pain that started 1 wk ago with becoming more constant today. Patient c/o diarrhea, but denies any nausea or vomiting. Patient states she has had 2-3 diarrhea stools in last 24 hrs. Source of Information: Patient, Old Records Exam Limitations: Other (dementia) History of Present Illness Date Seen by Provider: Feb 08, 2023 Time Seen by Provider: 13:33 Initial Comments 88-year-old female presenting with complaints of epigastric discomfort. She states that its been going on for the last week but was more constant today. She has had some watery stools. She denies nausea or vomiting. She states that she does have memory issues so she could not remember for sure all of the details. She denied having fever or chills. She has had multiple previous visits for abdominal discomfort like this. In the past most of her episodes have been linked to family upset her stressful events. She was in [place] with her and son for her 's dialysis went she felt like the abdominal pain and discomfort was worse so her son drove her back up here to [place] from [place] to be evaluated in the emergency department. Timing/Duration: 1 Week Severity/Quality: Moderate, Aching Location: Epigastric Activities at Onset: Emotional Stress Modifying Factors: Worsens With Palpation Associated Symptoms: Back Pain (chronic from old fall); No Chest Pain, No Diaphoresis, No Fever/Chills, No Fatigue, No Headache, No Heartburn, No Nausea/Vomiting, No Rash, No Shortness of Air, No Swelling/Mass in Abdomen, No Syncope; Weakness Allergies and Home Medications Allergies Coded Allergies: No Known Drug Allergies (Unverified , 07/28/19) Patient Home Medication List Home Medication List Reviewed: Yes Aspirin (Aspirin EC) 81 Mg Tablet.dr, 81 MG PO DAILY, (Reported) Entered as Reported by: DARYL PURVIS on 11/11/20 154 Atenolol (Atenolol) 50 Mg Tablet, 50 MG PO BID, (Reported) Entered as Reported by: WANDA MARION on 07/28/19 1313 Carbidopa/Levodopa (Carbidopa-Levodopa 10-100 Tab) 1 Each Tablet, 2 TAB PO TID, (Reported) Entered as Reported by: WANDA MARION on 07/28/19 1313 Cephalexin (Cephalexin) 500 Mg Capsule, 500 MG PO TID Prescribed by: LIZZY STARK on 02/08/23 1607 Ciprofloxacin HCl (Ciprofloxacin HCl) 250 Mg Tablet, 250 MG PO BID Prescribed by: CAMMIE EWING on 02/19/22 162 Cyclobenzaprine HCl (Cyclobenzaprine HCl) 10 Mg Tablet, 10 MG PO TID Prescribed by: JERRELL DAHL on 12/19/212121 Hydrocodone/Acetaminophen (Hydrocodone-Acetamin 5-325 mg) 5 Mg-325 Mg Tablet, 1 TAB PO Q4H PRN for PAIN-MODERATE (5-7) Prescribed by: JERRELL DAHL on 12/19/212121 Lovastatin (Lovastatin) 10 Mg Tablet, 10 MG PO HS, (Reported) Entered as Reported by: WANDA MARION on 07/28/19 1313 Metronidazole (Metronidazole) 500 Mg Tablet, 500 MG PO TID Prescribed by: CAMMIE EWING on 02/19/22 162 Olmesartan Medoxomil (Benicar) 20 Mg Tablet, 20 MG PO DAILY, (Reported) Entered as Reported by: DARYL PURVIS on 11/11/20 1542 Review of Systems Review of Systems Constitutional: No chills, No fever EENTM: No Symptoms Reported Respiratory: No Symptoms Reported Cardiovascular: No Symptoms Reported Gastrointestinal: See HPI Genitourinary: Denies Frequency Musculoskeletal: back pain (chronic back pain) Skin: no symptoms reported Psychiatric/Neurological: No Symptoms Reported Past Xuhglva-Dziaaw-Evtzjl Hx Patient Social History Tobacco Use?: No Use of E-Cig and/or Vaping dev: No Substance use?: No Alcohol Use?: No Immunizations Up To Date Influenza Vaccine Up-to-Date: No; Not Current First/Initial COVID19 Vaccinat: no vacc Second COVID19 Vaccination Alex: no vacc Third COVID19 Vaccination Date: no vacc Seasonal Allergies Seasonal Allergies: No Past Medical History Surgery/Hospitalization HX: Colon cancer, hysterectomy, cholecystectomy, hypertension, Parkinson's Surgeries: Yes Gallbladder, Hysterectomy Respiratory: No Cardiac: Yes Hypertension Neurological: Yes 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 oz. 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 II-XII nml as tested, no motor/sensory deficits, alert, oriented x 3 Skin: normal color, warm/dry Progress/Results/Core Measures Results/Orders Lab Results Laboratory Tests Test 02/08/23 14:10 02/08/23 15:22 Range/Units White Blood Count 4.0 L 4.3-11.0 10^3/uL Red Blood Count 4.68 3.80-5.11 10^6/uL Hemoglobin 12.9 11.5-16.0 g/dL Hematocrit 40 35-52 % Mean Corpuscular Volume 86 80-99 fL Mean Corpuscular Hemoglobin 28 25-34 pg Mean Corpuscular Hemoglobin Concent 32 32-36 g/dL Red Cell Distribution Width 13.5 10.0-14.5 % Platelet Count 141 130-400 10^3/uL Mean Platelet Volume 11.5 9.0-12.2 fL Immature Granulocyte % (Auto) 0 % Neutrophils (%) (Auto) 48 42-75 % Lymphocytes (%) (Auto) 36 12-44 % Monocytes (%) (Auto) 13 H 0-12 % Eosinophils (%) (Auto) 2 0-10 % Basophils (%) (Auto) 1 0-10 % Neutrophils # (Auto) 1.9 1.8-7.8 10^3/uL Lymphocytes # (Auto) 1.5 1.0-4.0 10^3/uL Monocytes # (Auto) 0.5 0.0-1.0 10^3/uL Eosinophils # (Auto) 0.1 0.0-0.3 10^3/uL Basophils # (Auto) 0.0 0.0-0.1 10^3/uL Immature Granulocyte # (Auto) 0.0 0.0-0.1 10^3/uL Sodium Level 139 135-145 MMOL/L Potassium Level 3.2 L 3.6-5.0 MMOL/L Chloride Level 104 98-107 MMOL/L Carbon Dioxide Level 22 21-32 MMOL/L Anion Gap 13 5-14 MMOL/L Blood Urea Nitrogen 11 7-18 MG/DL Creatinine 0.84 0.60-1.30 MG/DL Estimat Glomerular Filtration Rate 67 BUN/Creatinine Ratio 13 Glucose Level 98 70-105 MG/DL Calcium Level 9.5 8.5-10.1 MG/DL Corrected Calcium 9.5 8.5-10.1 MG/DL Total Bilirubin 0.9 0.1-1.0 MG/DL Aspartate Amino Transf (AST/SGOT) 20 5-34 U/L Alanine Aminotransferase (ALT/SGPT) 7 0-55 U/L Alkaline Phosphatase 86 40-136 U/L Total Protein 6.5 6.4-8.2 GM/DL Albumin 4.0 3.2-4.5 GM/DL Lipase 20 8-78 U/L Urine Color YELLOW Urine Clarity CLEAR Urine pH 6.0 5-9 Urine Specific [place] 1.025 H 1.016-1.022 Urine Protein TRACE H NEGATIVE Urine Glucose (UA) NEGATIVE NEGATIVE Urine Ketones TRACE H NEGATIVE Urine Nitrite NEGATIVE NEGATIVE Urine Bilirubin NEGATIVE NEGATIVE Urine Urobilinogen 0.2 < = 1.0 MG/DL Urine Leukocyte Esterase TRACE H NEGATIVE Urine RBC (Auto) TRACE-I H NEGATIVE Urine RBC 5-10 H /HPF Urine WBC 10-25 H /HPF Urine Squamous Epithelial Cells 10-25 H /HPF Urine Crystals NONE /LPF Urine Bacteria MODERATE H /HPF Urine Casts PRESENT /LPF Urine Hyaline Casts 2-5 H /LPF Urine Mucus LARGE H /LPF Urine Yeast MODERATE H /HPF Urine Culture Indicated YES My Orders Orders - LIZZY STARK MD Comprehensive Metabolic Panel (02/08/23 14:01) Lipase (02/08/23 14:01) Ua Culture If Indicated (02/08/23 14:01) Ed Iv/Invasive Line Start (02/08/23 14:01) Cbc With Automated Diff (02/08/23 14:01) Ns Iv 1000 Ml (Sodium Chloride 0.9%) (02/08/23 14:02) Pantoprazole Injection (Protonix Injecti (02/08/23 14:02) Dicyclomine Injection (Dicyclomine Injec (02/08/23 14:02) Urine Culture (02/08/23 15:22) Ceftriaxone Iv/Im (Ceftriaxone Iv/Im) (02/08/23 16:06) Vital Signs/I&O 02/08/23 13:27 Temp 36.9 Pulse 66 Resp 14 B/P (MAP) 166/76 (106) O2 Delivery Room Air Blood Pressure Mean: 106 Progress Progress Note #1: Progress Note Potential diagnosis of gastritis, constipation, colitis, diverticulitis, stress reaction, UTI. Establish peripheral IV access and send labs for complete blood counts, comprehensive metabolic profile, lipase. Urinalysis to look for signs of infection. Administer normal saline 1 L IV fluid bolus for hydration, Protonix 40 mg IV x1 for gastritis, Bentyl or dicyclomine 20 mg IM x1 for abdominal cramping and pain. She just had CT imaging January 16 for similar complaints that did not show any acute process. Will defer repeat CT imaging today. Since she has had multiple CT scans of her abdomen and pelvis due to her recurrent episodes of presenting with complaints of epigastric pain. Progress Note #2: Time: 14:44 Progress Note Complete blood count does not show any acute significant abnormality. She did not have an elevated white blood cell count because it was only 4. She was not anemic with a hemoglobin of 12.9. Her comprehensive metabolic panel did not show any electrolyte abnormalities to account for her complaints of epigastric discomfort. She had mild hypokalemia at 3.2. Her lipase was negative for pancreatitis. We will see if she can provide a urine specimen after the fluids have infused. Urinalysis was obtained and did show signs of UTI. Started on Rocephin 1 g IV here and discharged with cephalexin 500 mg p.o. 3 times daily x5 days. Family did return and pick her up. Given information about the UTI and follow-up and return precautions. Departure Impression Primary Impression: Cystitis without hematuria Additional Impression: Epigastric abdominal pain Disposition: HOME, SELF-CARE Condition: Stable Departure-Patient Inst. Decision time for Depature: 16:07 Referrals: CAROL AVINA MD (PCP/Family) Primary Care Physician Patient Instructions: Gastritis ED, Abdominal Pain, Adult ED, Ulcer and Gastritis Diet, Urinary Tract Infection, Adult ED Add. Discharge Instructions: Stay well-hydrated and drink plenty of fluids Take your prescription medications. Take full course of antibiotics to treat for UTI Follow-up with the clinic for continued concerns. All discharge instructions reviewed with patient and/or family. Voiced understanding. Scripts Cephalexin (Cephalexin) 500 Mg Capsule 500 MG PO TID for UTI for 5 Days, #15 CAP 0 Refills Prov: LIZZY STARK MD 02/08/23 LIZZY STARK MD Feb 08, 2023 14:10
[2023-02-08 14:14] LABS: BASOPHILS % (AUTO) 1 % (0-10); EOSINOPHILS # (AUTO) 0.1 10^3/uL (0.0-0.3); EOSINOPHILS % (AUTO) 2 % (0-10); HEMATOCRIT 40 % (35-52); HEMOGLOBIN 12.9 g/dL (11.5-16.0); LYMPHOCYTES # (AUTO) 1.5 10^3/uL (1.0-4.0); LYMPHOCYTES % (AUTO) 36 % (12-44); MEAN CORPUSCULAR HEMOGLOBIN 28 pg (25-34); MEAN CORPUSCULAR HGB CONC 32 g/dL (32-36); MEAN CORPUSCULAR VOLUME 86 fL (80-99); MEAN PLATELET VOLUME 11.5 fL (9.0-12.2); MONOCYTES # (AUTO) 0.5 10^3/uL (0.0-1.0); MONOCYTES % (AUTO) 13 % (0-12); NEUTROPHILS # (AUTO) 1.9 10^3/uL (1.8-7.8); NEUTROPHILS % (AUTO) 48 % (42-75); PLATELET COUNT 141 10^3/uL (130-400)
[2023-02-08 14:30] LABS: BILIRUBIN,TOTAL 0.9 MG/DL (0.1-1.0); CALCIUM 9.5 MG/DL (8.5-10.1); CREATININE SERUM 0.84 MG/DL (0.60-1.30); POTASSIUM 3.2 MMOL/L (3.6-5.0); TOTAL PROTEIN 6.5 GM/DL (6.4-8.2)
[2023-02-08 15:31] LABS: BILIRUBIN,URINE NEGATIVE (NEGATIVE); CLARITY,URINE CLEAR; COLOR,URINE YELLOW; GLUCOSE, URINE (UA) NEGATIVE (NEGATIVE); KETONES,URINE TRACE (NEGATIVE); LEUKOCYTE ESTERASE ,URINE TRACE (NEGATIVE); NITRITE,URINE NEGATIVE (NEGATIVE); PROTEIN,URINE TRACE (NEGATIVE)
[2023-02-08 15:37] LABS: BACTERIA,URINE MODERATE /HPF; YEAST,URINE MODERATE /HPF
[2023-02-08] MEDS ORDERED: cefTRIAXone IV/IM 1,000 MG in NS (IVPB) 50 ML 50 ML IV STA (16:06)
[2023-02-08] MEDS ORDERED: CEPH500C PO (16:07)
== END 2023-02-08 16:47 | disposition home or self-care (01) ==
LOC: EDUNIT# 13:21 → ER FS 13:22
DX: N30.90 Cystitis, unspecified without hematuria (principal); R10.13 Epigastric pain; E87.6 Hypokalemia; Z90.49 Acquired absence of other specified parts of digestive tract; Z28.310 Unvaccinated for COVID-19; Z85.038 Personal history of other malignant neoplasm of large intestine
CPT/HCPCS: 36415; 80053; 81000; 83690; 85025; 87088

== ENCOUNTER 2023-04-03 12:19 | Outpatient (RCR) | payer MEDICARE ==
[~2023-04-03 12:19] MED LIST changes: +CEPH500C PO
== END 2023-04-30 | disposition home or self-care (01) ==
LOC: ONC 12:19
PROVIDERS: ATTEND Internal Medicine Hematology & Oncology
DX: C18.9 Malignant neoplasm of colon, unspecified (principal); D50.9 Iron deficiency anemia, unspecified; G20.A1 Parkinson's disease without dyskinesia, without mention of fluctuations
CPT/HCPCS: 99214